=== PATIENT | female | born 1985 | race American Indian/Alaskan Native ===

== ENCOUNTER 2018-01-24 11:42 | Emergency (ER) | payer OTHER ==
[2018-01-24 11:53] VITALS: BP 115/75
--- NOTE | 2018-01-24 12:40 | Emergency Department Report ---
Chief Complaint: Urogenital-Female Stated Complaint: TOOTHACHE/UTI Time Seen by Provider: 01/24/18 12:31 - HPI History of Present Illness: 32-year-old female presents to the emergency department with 2 issues. First, the patient has been having some tooth pain to the right upper back molar that she says now makes her feel like she has pain with swallowing and seems to be affecting her ears. Secondly, the patient has some burning with urination and some lower abdominal discomfort. It is associated with some nausea without vomiting. Last menstrual cycle was January 04. She has not taken anything for her symptoms and presentation. - ROS Review of Systems: Positive for pharyngitis, toothache, abdominal discomfort, dysuria, nausea Negative for vomiting, fever, chest pain, shortness of breath - Exam Vital Signs: Vital Signs 01/24/18 11:47 Temperature 98.8 F Pulse Rate 80 Respiratory 18 Rate Blood Pressure 115/75 Physical Exam: No visible periapical tooth abscess. She has some mild tonsillar hypertrophy, mild erythema and what appears to be a single left tonsillar exudate. No drooling or trismus. Heart and lung sounds are normal to auscultation. MSE screening note: Focused history and physical exam performed. Due to findings the following was ordered: She will have a rapid strep test, urinalysis and urine test to start. ED Disposition for MSE Condition: Stable Referrals: PRIMARY CARE, [Primary Care Provider] - 3-5 Days
[2018-01-24] MEDS ORDERED: TYLENOL PO ONE (12:44)
[2018-01-24 13:10] LABS: Bilirubin,Urine NEG (Negative); Blood,Urine NEG (Negative); Color,Urine Yellow (Yellow); Mucus,Urine FEW /HPF; Protein,Urine <15 mg/dL mg/dL (Negative); Urobilinogen,Urine < 2.0 mg/dL (<2.0)
[2018-01-24 13:22] LABS: HCG Qualitative,Urine Negative (Negative)
--- NOTE | 2018-01-24 14:25 | Emergency Department Report ---
HPI - General Chief Complaint: Urogenital-Female Time Seen by Provider: 01/24/18 12:31 - HPI HPI: 32-year-old female presents to the emergency department with 2 issues. First, the patient has been having some tooth pain to the right upper back molar that she says now makes her feel like she has pain with swallowing and seems to be affecting her ears. Secondly, the patient has some burning with urination and some lower abdominal discomfort. It is associated with some nausea without vomiting. Last menstrual cycle was January 04. She has not taken anything for her symptoms and presentation. ED Past Medical Hx - Past Medical History Hx Pulmonary Embolism: Yes (2014) Hx Asthma: Yes - Surgical History Past Surgical History?: Yes Additional Surgical History: tubligation 2011 - Social History Smoking Status: Never Smoker Substance Use Type: None - Medications Home Medications: Home Medications Medication Instructions Recorded Confirmed Last Taken Type HYDROcodone/APAP 5-325 [[place] 1 each PO Q8H PRN #8 tablet 01/24/18 Unknown Rx 5/325] Sulfamethoxazole/Trimethoprim 1 each PO BID #14 tablet 01/24/18 Unknown Rx [Bactrim DS TAB] ED Review of Systems ROS: Stated complaint: TOOTHACHE/UTI Other details as noted in HPI Comment: All other systems reviewed and negative Constitutional: denies: chills, fever Eyes: denies: eye pain, eye discharge, vision change ENT: throat pain, dental pain Respiratory: denies: cough, shortness of breath, wheezing Cardiovascular: denies: chest pain, palpitations Gastrointestinal: denies: nausea, vomiting Genitourinary: dysuria. denies: discharge Musculoskeletal: denies: back pain, joint swelling, arthralgia Skin: denies: rash, lesions Neurological: denies: headache, weakness, paresthesias Physical Exam - Physical Exam Vital Signs: Vital Signs 01/24/18 11:47 Temperature 98.8 F Pulse Rate 80 Respiratory 18 Rate Blood Pressure 115/75 Physical Exam: GENERAL: The patient is well-developed well-nourished. HENT: Normocephalic. Atraumatic. Patient has moist mucous membranes. Oropharynx is clear. The patient has a broken tooth to the left upper molar. She has some tenderness to palpation around this area but no visible or palpable abscess. No drooling or trismus. EYES: Extraocular motions are intact. Pupils equal reactive to light bilaterally. NECK: Supple. Trachea is midline. CHEST/LUNGS: Clear to auscultation. There is no respiratory distress noted. HEART/CARDIOVASCULAR: Regular. There is no tachycardia. There is no murmur. SKIN: Skin is warm and dry. NEURO: The patient is awake, alert, and oriented. The patient is cooperative. The patient has no focal neurologic deficits. The patient has normal speech. MUSCULOSKELETAL: There is no tenderness or deformity. There is no limitation range of motion. There is no evidence of acute injury. ED Course Vital Signs 01/24/18 11:47 Temperature 98.8 F Pulse Rate 80 Respiratory 18 Rate Blood Pressure 115/75 ED Medical Decision Making - Medical Decision Making the patient has dental pain with a fractured tooth but no visible or palpable abscess. She complains of little bit of pharyngitis. Urinalysis does not show any UTI the patient is not . She'll be placed on antibiotics, was given a prescription for a very small amount of pain medication and has been given a referral for a dental clinic. She will return to the ER with any worsening of her symptoms or any acute distress. Vital signs stable and being afebrile. - Differential Diagnosis dental abscess, toothache, strep pharyngitis, UTI, Critical Care Time: No Critical care attestation.: If time is entered above; I have spent that time in minutes in the direct care of this critically ill patient, excluding procedure time. ED Disposition Clinical Impression: Toothache, Dysuria Pharyngitis Qualifiers: Pharyngitis/tonsillitis etiology: unspecified etiology Qualified Code(s): J02.9 - Acute pharyngitis, unspecified Disposition: DC- TO HOME OR SELFCARE Is pt being admited?: No Condition: Stable Instructions: Pharyngitis (ED), Toothache (ED) Additional Instructions: Please follow up with a primary care physician and a dentist. Return to the emergency Department with any worsening of your symptoms or any acute distress. You have been prescribed a medication that is sedating and therefore should not be taken prior to driving, working, and responsible for children and in no way should be mixed with alcohol of any quantity. Prescriptions: HYDROcodone/APAP 5-325 [[place] 5/325] 1 each PO Q8H PRN #8 tablet PRN Reason: Pain Sulfamethoxazole/Trimethoprim [Bactrim DS TAB] 1 each PO BID #14 tablet Referrals: PRIMARY CAREMD [Primary Care Provider] - 3-5 Days HEATHER ACEVEDO MD [Staff Physician] - 3-5 Days [facility] [Outside] - 3-5 Days Time of Disposition: 14:25
== END 2018-01-24 14:47 | disposition home or self-care (01) ==
LOC: ED 11:42
DX: J02.9 Acute pharyngitis, unspecified (principal); K08.89 Other specified disorders of teeth and supporting structures; R30.0 Dysuria; J45.909 Unspecified asthma, uncomplicated; Z86.711 Personal history of pulmonary embolism; Z98.51 Tubal ligation status
CPT/HCPCS: 81001; 81025; 87116; 87430; 99283

== ENCOUNTER 2018-11-16 19:19 | Emergency (ER) | payer OTHER ==
[2018-11-16] MEDS ORDERED: TORADOL IM ONE (19:31)
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
== END 2018-11-16 21:23 | disposition home or self-care (01) ==
LOC: ED 19:19
DX: M54.2 Cervicalgia (principal); M25.561 Pain in right knee; M25.531 Pain in right wrist; M79.18 Myalgia, other site; J45.909 Unspecified asthma, uncomplicated; Z98.51 Tubal ligation status; Z86.711 Personal history of pulmonary embolism; Z88.6 Allergy status to analgesic agent; V49.59XA Passenger injured in collision with other motor vehicles in traffic accident, initial encounter; Y93.89 Activity, other specified; Y92.410 Unspecified street and highway as the place of occurrence of the external cause; Y99.8 Other external cause status
CPT/HCPCS: 72040; 73130; 73562; 96372; 99283; J1885

== ENCOUNTER 2019-05-26 06:35 | Emergency (ER) | payer SELFPAY ==
[2019-05-26 06:43] VITALS: BP 136/105
[2019-05-26] MEDS ORDERED: BOOSTRIX IM ONE (07:49)
[2019-05-26] MEDS ORDERED: LET TOPICAL TP ONE (07:49)
[2019-05-26] MEDS ORDERED: NORCO 5/325 PO ONE (07:49)
--- NOTE | 2019-05-26 08:05 | Emergency Department Report ---
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 BLEEDING CONTROLLED. N/V INTACT ED Review of Systems ROS: Stated complaint: RIGHT HAND LACERATION Other details as noted in HPI Comment: All other systems reviewed and negative ED Past Medical Hx - Past Medical History Previous Medical History?: Yes Hx Pulmonary Embolism: Yes (2014) Hx Asthma: Yes Hx HIV: Yes - Surgical History Past Surgical History?: Yes Additional Surgical History: tubligation 2011 - Social History Smoking Status: Never Smoker Substance Use Type: None - Medications Home Medications: Home Medications Medication Instructions Recorded Confirmed Last Taken Type HYDROcodone/APAP 5-325 [[place] 1 each PO Q8H PRN #8 tablet 01/24/18 Unknown Rx 5/325] Sulfamethoxazole/Trimethoprim 1 each PO BID #14 tablet 01/24/18 Unknown Rx [Bactrim DS TAB] Ibuprofen [Motrin 800 MG tab] 800 mg PO Q8HR #30 tablet 03/10/18 Unknown Rx Ibuprofen [Motrin] 800 mg PO Q8HR PRN #20 tablet 11/16/18 Unknown Rx methOCARBAMOL [Robaxin TAB] 500 mg PO Q6H PRN #15 tablet 11/16/18 Unknown Rx Laceration Physical Exam - Exam General: Vital signs noted. No distress. Alert and acting appropriately. Laceration Location: Upper Extremity Laceration Exam: Yes Normal Distal CMS, No Foreign Body, No Exposed Tendon, Vessel, or Nerve, No Tendon Injury ED Course Vital Signs 05/26/19 06:39 Temperature 98.2 F Pulse Rate 76 Respiratory 18 Rate Blood Pressure 136/105 O2 Sat by Pulse 98 Oximetry ED Medical Decision Making - Medical Decision Making WOUND CLEANED TDAP GIVEN FULL ROM FULL EXTENSION AND FULL FLEXION OF DIGIT LAC OVER LATERAL SIDE OF MIP SKIN ADHESIVE AND STERI STRIPS TO APPROXIMATE THE AVULSION TYPE WOUND. GUAZE AND FINGER SPLINT FOR IMMOBILIZATION DC HOME WITH DC PLAN OF CARE Vital Signs 05/26/19 06:39 Temperature 98.2 F Pulse Rate 76 Respiratory 18 Rate Blood Pressure 136/105 O2 Sat by Pulse 98 Oximetry - Differential Diagnosis simple lac Critical care attestation.: If time is entered above; I have spent that time in minutes in the direct care of this critically ill patient, excluding procedure time. ED Disposition Clinical Impression: Laceration Disposition: DC-01 TO HOME OR SELFCARE Is pt being admited?: No Does the pt Need Aspirin: No Condition: Stable Instructions: Laceration (ED), Skin Adhesive Care (ED) Additional Instructions: MOTRIN OR TYLENOL FOR PAIN WOUND CARE INSTRUCTED Referrals: PRIMARY CARE, [Primary Care Provider] - 3-5 Days Forms: Work/School Release Form(ED) Time of Disposition: 08:33
[2019-05-26] MEDS ORDERED: NACL 0.9% IR ONE (08:30)
== END 2019-05-26 08:58 | disposition home or self-care (01) ==
LOC: ED 06:35
DX: S61.411A Laceration without foreign body of right hand, initial encounter (principal); J45.909 Unspecified asthma, uncomplicated; Z98.51 Tubal ligation status; Z98.890 Other specified postprocedural states; Z79.899 Other long term (current) drug therapy; Z88.8 Allergy status to other drugs, medicaments and biological substances; W26.8XXA Contact with other sharp object(s), not elsewhere classified, initial encounter; Y93.G1 Activity, food preparation and clean up; Y92.89 Other specified places as the place of occurrence of the external cause; Y99.8 Other external cause status
CPT/HCPCS: 90471; 90715; 99282; 99283

== ENCOUNTER 2019-05-31 14:30 | Emergency (ER) | payer SELFPAY ==
[2019-05-31 15:06] VITALS: BP 147/85
--- NOTE | 2019-05-31 15:07 | Emergency Department Report ---
ED Recheck HPI - General Stated Complaint: FINGER LAC/ Time Seen by Provider: 05/31/19 15:02 - History of Present Illness Initial Comments: This is a 33-year-old female nontoxic well in appearance with no signs of distress presents to the ED with complaint of right 5th finger lac that was sutured with some drainage. Patient had Dermabond placed without antibiotics 5 days ago. Denies any swelling. Patient denies any other symptoms. Denies any fever, chills, headache, nausea, vomiting, chest pain or SOB. Denies any other complaints. MD Complaint: wound re-check -: days(s) Initial Visit For: laceration Returns Today for: wound recheck Symptoms Since Prior Visit: no new symptoms Associated Symptoms: none. denies: fever, chills, chest pain, shortness of breath, rash, malaise, [place], abdominal pain - Related Data Previous Rx's Medication Instructions Recorded Last Taken Type HYDROcodone/APAP 5-325 [[place] 1 each PO Q8H PRN #8 tablet 01/24/18 Unknown Rx 5/325] Sulfamethoxazole/Trimethoprim 1 each PO BID #14 tablet 01/24/18 Unknown Rx [Bactrim DS TAB] Ibuprofen [Motrin 800 MG tab] 800 mg PO Q8HR #30 tablet 03/10/18 Unknown Rx Ibuprofen [Motrin] 800 mg PO Q8HR PRN #20 tablet 11/16/18 Unknown Rx methOCARBAMOL [Robaxin TAB] 500 mg PO Q6H PRN #15 tablet 11/16/18 Unknown Rx Sulfamethoxazole/Trimethoprim 1 each PO BID #14 tablet 05/31/19 Unknown Rx [Bactrim DS TAB] Allergies Allergy/AdvReac Type Severity Reaction Status Date / Time tramadol AdvReac Hives Verified 01/24/18 11:53 ED Review of Systems ROS: Stated complaint: FINGER LAC/ Other details as noted in HPI Constitutional: denies: chills, fever Eyes: denies: eye pain, eye discharge, vision change ENT: denies: ear pain, throat pain Respiratory: denies: cough, shortness of breath, wheezing Cardiovascular: denies: chest pain, palpitations Endocrine: no symptoms reported Gastrointestinal: denies: abdominal pain, nausea, diarrhea Genitourinary: denies: urgency, dysuria, discharge Musculoskeletal: denies: back pain, joint swelling, arthralgia Skin: denies: rash, lesions Neurological: denies: headache, weakness, paresthesias Psychiatric: denies: anxiety, depression Hematological/Lymphatic: denies: easy bleeding, easy bruising ED Past Medical Hx - Past Medical History Hx Pulmonary Embolism: Yes (2014) Hx Asthma: Yes Hx HIV: Yes - Surgical History Additional Surgical History: tubligation 2011 - Social History Smoking Status: Never Smoker Substance Use Type: None - Medications Home Medications: Home Medications Medication Instructions Recorded Confirmed Last Taken Type HYDROcodone/APAP 5-325 [[place] 1 each PO Q8H PRN #8 tablet 01/24/18 Unknown Rx 5/325] Sulfamethoxazole/Trimethoprim 1 each PO BID #14 tablet 01/24/18 Unknown Rx [Bactrim DS TAB] Ibuprofen [Motrin 800 MG tab] 800 mg PO Q8HR #30 tablet 03/10/18 Unknown Rx Ibuprofen [Motrin] 800 mg PO Q8HR PRN #20 tablet 11/16/18 Unknown Rx methOCARBAMOL [Robaxin TAB] 500 mg PO Q6H PRN #15 tablet 11/16/18 Unknown Rx Sulfamethoxazole/Trimethoprim 1 each PO BID #14 tablet 05/31/19 Unknown Rx [Bactrim DS TAB] ED Physical Exam - General General appearance: alert, in no apparent distress - Head Head exam: Present: atraumatic, normocephalic - Extremities Exam Extremities exam: Present: normal inspection, full ROM, tenderness, normal capillary refill, other (well healing lac with some serosanguineous drainge. no swelling or abscess noted). Absent: joint swelling ED Course - Reevaluation(s) Reevaluation #1: 05/31/19 15:06 Patient is speaking in full sentences with signs of distress noted. ED Recheck MDM - Medical Decision Making Was eduacated on wound care. Will discharge with Bactrim. Patient was instructed to Follow-up with a primary care doctor in 3-5 days or if symptoms worsen and continue return to emergency room as soon as possible. At time of discharge, the patient does not seem toxic or ill in appearance. No acute signs of distress noted. Patient agrees to discharge treatment plan of care. No further questions noted by the patient. Critical care attestation.: If time is entered above; I have spent that time in minutes in the direct care of this critically ill patient, excluding procedure time. ED Disposition Clinical Impression: Visit for wound check Disposition: DC-01 TO HOME OR SELFCARE Is pt being admited?: No Does the pt Need Aspirin: No Condition: Stable Instructions: Acute Wound Care (ED) Additional Instructions: Follow-up with a primary care doctor in 3-5 days or if symptoms worsen and continue return to the emergency department as soon as possible. Prescriptions: Sulfamethoxazole/Trimethoprim [Bactrim DS TAB] 1 each PO BID #14 tablet Referrals: PRIMARY CAREMD [Referring] - 3-5 Days ARELY AHUJA MD [Staff Physician] - 3-5 Days [facility] [Outside] - 3-5 Days [facility] [Outside] - 3-5 Days Forms: Work/School Release Form(ED)
== END 2019-05-31 15:36 | disposition home or self-care (01) ==
LOC: ED 14:30
DX: S61.217D Laceration without foreign body of left little finger without damage to nail, subsequent encounter (principal); Y92.89 Other specified places as the place of occurrence of the external cause

== ENCOUNTER 2019-10-11 13:37 | Emergency (ER) | payer SELFPAY ==
[2019-10-11 15:43] VITALS: BP 132/83
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
--- NOTE | 2019-10-11 16:09 | Emergency Department Report ---
ED Upper Extremity Inj HPI - General Chief Complaint: Extremity Injury, Upper Stated Complaint: RT THUMB/INJURY PAIN Time Seen by Provider: 10/11/19 15:41 Source: patient Mode of arrival: Ambulatory Limitations: No Limitations - History of Present Illness Initial Comments: This pleasant 34-year-old female presents the emergency department for evaluation of right hand and wrist pain. Patient states she was at work today when she threw a box and externally hit the base of her thumb on a metal pallet inocente. She reports she is having pain with movement of the thumb now. She denies any other injuries. Her pain is rated as an 8 out of 10 in severity. She reports past medical history of HIV on antiretroviral medication, asthma and pulmonary embolism in 2015. She is not currently on anticoagulation. She has allergy to shrimp and tramadol. - Related Data Previous Rx's Medication Instructions Recorded Last Taken Type HYDROcodone/APAP 5-325 [[place] 1 each PO Q8H PRN #8 tablet 01/24/18 Unknown Rx 5/325] Sulfamethoxazole/Trimethoprim 1 each PO BID #14 tablet 01/24/18 Unknown Rx [Bactrim DS TAB] methOCARBAMOL [Robaxin TAB] 500 mg PO Q6H PRN #15 tablet 11/16/18 Unknown Rx Sulfamethoxazole/Trimethoprim 1 each PO BID #14 tablet 05/31/19 Unknown Rx [Bactrim DS TAB] Naproxen [Naprosyn] 500 mg PO BID #20 tablet 10/11/19 Unknown Rx Allergies Allergy/AdvReac Type Severity Reaction Status Date / Time shrimp Allergy Swelling Verified 10/11/19 13:41 tramadol AdvReac Hives Verified 01/24/18 11:53 ED Review of Systems ROS: Stated complaint: RT THUMB/INJURY PAIN Other details as noted in HPI Comment: All other systems reviewed and negative Constitutional: denies: chills, fever Eyes: denies: eye pain, eye discharge, vision change ENT: denies: ear pain, throat pain Respiratory: denies: cough, shortness of breath, wheezing Cardiovascular: denies: chest pain, palpitations Endocrine: no symptoms reported Gastrointestinal: denies: abdominal pain, nausea, diarrhea Genitourinary: denies: urgency, dysuria, discharge Musculoskeletal: as per HPI, arthralgia. denies: back pain, joint swelling Skin: denies: rash, lesions Neurological: denies: headache, weakness, paresthesias Psychiatric: denies: anxiety, depression Hematological/Lymphatic: denies: easy bleeding, easy bruising ED Past Medical Hx - Past Medical History Previous Medical History?: Yes Hx Pulmonary Embolism: Yes (2014) Hx Asthma: Yes Hx HIV: Yes - Surgical History Past Surgical History?: Yes Additional Surgical History: tubligation 2011 - Social History Smoking Status: Never Smoker Substance Use Type: None - Medications Home Medications: Home Medications Medication Instructions Recorded Confirmed Last Taken Type HYDROcodone/APAP 5-325 [[place] 1 each PO Q8H PRN #8 tablet 01/24/18 Unknown Rx 5/325] Sulfamethoxazole/Trimethoprim 1 each PO BID #14 tablet 01/24/18 Unknown Rx [Bactrim DS TAB] methOCARBAMOL [Robaxin TAB] 500 mg PO Q6H PRN #15 tablet 11/16/18 Unknown Rx Sulfamethoxazole/Trimethoprim 1 each PO BID #14 tablet 05/31/19 Unknown Rx [Bactrim DS TAB] Naproxen [Naprosyn] 500 mg PO BID #20 tablet 10/11/19 Unknown Rx ED Physical Exam - General Limitations: No Limitations General appearance: alert, in no apparent distress - Head Head exam: Present: atraumatic, normocephalic - Eye Eye exam: Present: normal appearance, PERRL, EOMI Pupils: Present: normal accommodation - ENT ENT exam: Present: normal exam, normal orophraynx, mucous membranes moist - Neck Neck exam: Present: normal inspection, full ROM. Absent: tenderness, meningismus - Respiratory Respiratory exam: Present: normal lung sounds bilaterally. Absent: respiratory distress, wheezes, rales, rhonchi, stridor - Cardiovascular Cardiovascular Exam: Present: regular rate, normal rhythm, normal heart sounds. Absent: systolic murmur, diastolic murmur, rubs, gallop - GI/Abdominal GI/Abdominal exam: Present: soft, normal bowel sounds. Absent: distended, tend erness, guarding, rebound, rigid - Extremities Exam Extremities exam: Present: normal inspection, full ROM, tenderness (TTP to anatomic snuffbox. no deformity. ), normal capillary refill - Back Exam Back exam: Present: normal inspection, full ROM. Absent: tenderness, CVA tenderness (R), CVA tenderness (L) - Neurological Exam Neurological exam: Present: alert, oriented X3 - Psychiatric Psychiatric exam: Present: normal affect, normal mood - Skin Skin exam: Present: warm, dry, intact, normal color. Absent: rash ED Course Vital Signs 10/11/19 15:41 Temperature 98.3 F Pulse Rate 84 Respiratory 18 Rate Blood Pressure 132/83 O2 Sat by Pulse 100 Oximetry ED Medical Decision Making - Radiology Data Radiology results: report reviewed, image reviewed [facility] [address] [place] [address] XRay Report Signed Patient: JEFF MATTHEW MR#: [id number] : 1985 Acct:[id number] Age/Sex: 34 / F ADM Date: 10/11/19 Loc: ED Attending Dr: Ordering Physician: CYNTHIA HYDE Date of Service: 10/11/19 Procedure(s): XR hand 3+V RT Accession Number(s): [id number] cc: CYNTHIA HYDE Fluoro Time In Minutes: RIGHT HAND 3 VIEWS INDICATION / CLINICAL INFORMATION: Right thumb injury. History of blunt trauma to thumb. COMPARISON: None available. FINDINGS: BONES and JOINT(S): No acute fracture or subluxation. No significant arthritis. SOFT TISSUES: No significant abnormality. ADDITIONAL FINDINGS: None. IMPRESSION: No acute abnormality of the right hand. Signer Name: Theodore Khoury MD Signed: 10/11/2019 4:00 PM Workstation Name: [id number] Transcribed By: OLVIN Dictated By: Theodore Khoury MD Electronically Authenticated By: Theodore Khoury MD Signed Date/Time: 10/11/19 1600 - Medical Decision Making X-rays were negative however due to the anatomical snuffbox the patient was placed in a thumb spica splint. The patient was educated that she will need a repeat x-ray in 1-2 weeks to definitively rule out a scaphoid injury. This splint was placed by ER and it was appropriately applied and the distal neurovascular exam post application was unremarkable. Patient will be given orthopedic follow-up and should return precautions for change or worsening symptoms. Patient verbalizes understanding of the diagnosis, treatment plan and follow-up instructions all of her questions were answered. - Differential Diagnosis fracture, sprain, strain, contusion Critical care attestation.: If time is entered above; I have spent that time in minutes in the direct care of this critically ill patient, excluding procedure time. ED Disposition Clinical Impression: Contusion of wrist, right Qualifiers: Encounter type: initial encounter Qualified Code(s): S60.211A - Contusion of right wrist, initial encounter Disposition: DC- TO HOME OR SELFCARE Is pt being admited?: No Does the pt Need Aspirin: No Condition: Stable Instructions: Contusion in Adults (ED) Prescriptions: Naproxen [Naprosyn] 500 mg PO BID #20 tablet Referrals: JUNIE PALMA MD [Staff Physician] - 3-5 Days Forms: Work/School Release Form(ED) Time of Disposition: 16:22
== END 2019-10-11 16:39 | disposition home or self-care (01) ==
LOC: ED 13:37
DX: S60.211A Contusion of right wrist, initial encounter (principal); Z86.711 Personal history of pulmonary embolism; Z98.51 Tubal ligation status; Z79.899 Other long term (current) drug therapy; Z91.013 Allergy to seafood; Z88.8 Allergy status to other drugs, medicaments and biological substances; W22.8XXA Striking against or struck by other objects, initial encounter; Y93.89 Activity, other specified; Y92.89 Other specified places as the place of occurrence of the external cause; Y99.8 Other external cause status

== ENCOUNTER 2019-10-20 08:14 | Emergency (ER) | payer SELFPAY ==
[2019-10-20 08:25] VITALS: BP 142/84
[2019-10-20] MEDS ORDERED: KETOROLAC 30 MG/1 ML INJ IM ONE (09:58)
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
== END 2019-10-20 10:51 | disposition home or self-care (01) ==
LOC: ED 08:14
DX: S16.1XXA Strain of muscle, fascia and tendon at neck level, initial encounter (principal); J45.909 Unspecified asthma, uncomplicated; Z21 Asymptomatic human immunodeficiency virus [HIV] infection status; Z91.013 Allergy to seafood; Z79.899 Other long term (current) drug therapy; Z88.8 Allergy status to other drugs, medicaments and biological substances; Z98.51 Tubal ligation status; X58.XXXA Exposure to other specified factors, initial encounter; Y93.89 Activity, other specified; Y92.89 Other specified places as the place of occurrence of the external cause; Y99.8 Other external cause status
CPT/HCPCS: 96372; 99282; J1885

== ENCOUNTER 2019-10-21 01:17 | Observation (INO) | payer OTHER ==
--- NOTE | 2019-10-21 02:05 | XRay Report ---
CHEST 1 VIEW INDICATION / CLINICAL INFORMATION: Chest Pain. COMPARISON: None available. FINDINGS: SUPPORT DEVICES: None. HEART / MEDIASTINUM: No significant abnormality. LUNGS / PLEURA: No significant pulmonary or pleural abnormality.. No pneumothorax. ADDITIONAL FINDINGS: No significant additional findings. IMPRESSION: 1. No acute findings. Signer Name: Mohit Will MD Signed: 10/21/2019 2:01 AM Workstation Name: [id number]
[2019-10-21 02:10] LABS: Basophils % (Auto) 0.4 % (0.0-1.8); Eosinophils # (Auto) 0.2 K/mm3 (0.0-0.4); Eosinophils % (Auto) 2.1 % (0.0-4.3); Hematocrit 40.4 % (30.3-42.9); Hemoglobin 13.5 gm/dl (10.1-14.3); Lymphocytes # (Auto) 3.3 K/mm3 (1.2-5.4); Lymphocytes % (Auto) 41.3 % (13.4-35.0); Mean Corpuscular HGB Conc 34 % (30-34); Mean Corpuscular Volume 92 fl (79-97); Monocytes # (Auto) 0.7 K/mm3 (0.0-0.8); Monocytes % (Auto) 8.5 % (0.0-7.3); Platelet Count 251 K/mm3 (140-440); Red Blood Count 4.39 M/mm3 (3.65-5.03); Red Cell Distribution Width 14.3 % (13.2-15.2)
[2019-10-21 02:31] LABS: BUN/Creatinine Ratio 19; Blood Urea Nitrogen 17 mg/dL (7-17); Calcium 9.2 mg/dL (8.4-10.2); Hemolysis Index 12
[2019-10-21 03:14] LABS: Bacteria,Urine 1+ /HPF (Negative); Bilirubin,Urine NEG (Negative); Blood,Urine NEG (Negative); Color,Urine Amber (Yellow); Mucus,Urine FEW /HPF
[2019-10-21] MEDS ORDERED: IPRATROPIUM/ALBUTEROL SULFATE 3 ML AMPUL.NEB IH ONE (03:15)
[2019-10-21] MEDS ORDERED: methylPREDNISolone Sod Succinate 125 MG/2 ML INJ IV ONE (03:15)
[2019-10-21] MEDS ORDERED: NITROFURANTOIN MONOHYD/M-CRYST 100 MG CAP PO ONE (03:29)
--- NOTE | 2019-10-21 04:49 | Cat Scan Report ---
CT cervical spine wo con INDICATION / CLINICAL INFORMATION: 34 years Female; Pt complains of neck pain and left arm numbness.. TECHNIQUE: Axial CT images of the cervical spine were obtained. Sagittal and coronal reformatted images were pr oduced. All CT scans at this location are performed using CT dose reduction for ALARA by means of aut omated exposure control. COMPARISON: None available. FINDINGS: POST-SURGICAL CHANGES: None. ALIGNMENT: Straightening of the cervical spine seen, which may be related to patient positioning. VERTEBRAE: No signs of fracture. Vertebral bodies are grossly normal in height throughout. No signif icant facet joint disease or osseous foraminal narrowing appreciated. INTRAVERTEBRAL DISCS:Disc spaces are fairly well-maintained throughout without significant canal sten osis. PARASPINAL SOFT TISSUES: No significant abnormality. ADDITIONAL FINDINGS: None. IMPRESSION: 1. No single, dominant cause for patient's symptomatology appreciated. These types of symptoms are mu ch better evaluated with MRI or myelography. Signer Name: Garett Fleming MD, III Signed: 10/21/2019 4:44 AM Workstation Name: [id number]
--- NOTE | 2019-10-21 04:50 | Cat Scan Report ---
CT head/brain wo con INDICATION / CLINICAL INFORMATION: 34 years Female; Pt complains of neck pain and left arm numbness.. TECHNIQUE: Routine CT head without contrast. All CT scans at this location are performed using CT dos e reduction for ALARA by means of automated exposure control. COMPARISON: None. FINDINGS: BRAIN / INTRACRANIAL CONTENTS: No acute hemorrhage, mass effect, midline shift, hydrocephalus, or acu te, large territorial infarct. No chronic infarct or atrophy appreciated. No significant white matter abnormality. CRANIOCERVICAL JUNCTION: No significant abnormality. ORBITS: No significant abnormality of visualized orbits. SINUSES / MASTOIDS: Minimal mucosal thickening seen in the ethmoids. ADDITIONAL FINDINGS: Prominent soft tissue is seen in the roof the nasopharynx, presumably related to reactive adenoidal tissue. Please clinically correlate. IMPRESSION: 1. No focal mass, hemorrhage, hydrocephalus, or acute, large territorial infarct. Signer Name: Garett Fleming MD, III Signed: 10/21/2019 4:46 AM Workstation Name: [email or web address]
[2019-10-21] MEDS ORDERED: MORPHINE 4 MG/1 ML INJ IV ONE (04:55)
[2019-10-21] MEDS ORDERED: KETOROLAC 30 MG/1 ML INJ IV ONE (05:26)
[2019-10-21] MEDS ORDERED: ONDANSETRON 4 MG/2 ML INJ ONE (05:36)
--- NOTE | 2019-10-21 06:22 | Emergency Department Report ---
HPI - General Chief Complaint: Neuro Symptoms/Deficit Time Seen by Provider: 10/21/19 02:46 - HPI HPI: 34-year-old -[place] female presents to the emergency department with 2 complaints. First, the patient has been having a 24-hour history of severe pain in the left upper shoulder, left side of the neck and the left upper back around the shoulder blade. The patient originally had some mild numbness and paresthesias but now says that she has complete numbness of her left upper extremity. She is still able to move the arm with a full range of motion. She denies any fall, trauma, injury, or any obvious inciting event. The patient was seen here for the symptoms yesterday, was diagnosed with a cervical strain, and was discharged home with Robaxin. The patient says that she was taking that, along with ibuprofen, but the symptoms have worsened. Secondly, the patient complains of some shortness of breath in which she feels like it is difficult to take full breaths. There has been some mild wheezing and the patient thinks that this could be an exacerbation of her asthma. The patient also has a history of HIV and previous pulmonary embolism. She is not currently on any to coagulation. No recent travel or sick contacts at home. ED Past Medical Hx - Past Medical History Previous Medical History?: Yes Hx Pulmonary Embolism: Yes (2014) Hx Asthma: Yes Hx HIV: Yes - Surgical History Past Surgical History?: Yes Additional Surgical History: tubligation 2011 - Social History Smoking Status: Never Smoker Substance Use Type: None - Medications Home Medications: Home Medications Medication Instructions Recorded Confirmed Last Taken Type methOCARBAMOL [Robaxin TAB] 500 mg PO Q6H PRN #15 tablet 11/16/18 10/21/19 Unknown Rx Sulfamethoxazole/Trimethoprim 1 each PO BID #14 tablet 05/31/19 10/21/19 10/21/19 03:00 Rx [Bactrim DS TAB] Emtricita/Rilpivirine/Tenof Df 1 each PO DAILY 10/21/19 10/21/19 10/19/19 17:00 History [Complera Tablet] ED Review of Systems ROS: Stated complaint: CHEST PAIN,DIFF URINING,PAIN ON LEFT SIDE W/NUMBNE Other details as noted in HPI Comment: All other systems reviewed and negative Constitutional: denies: chills, fever Eyes: denies: eye pain, vision change ENT: denies: ear pain, throat pain Respiratory: shortness of breath, wheezing Cardiovascular: denies: chest pain, edema Gastrointestinal: denies: abdominal pain, vomiting Musculoskeletal: back pain, arthralgia, myalgia Skin: denies: rash, lesions Neurological: numbness, paresthesias. denies: weakness Physical Exam - Physical Exam Vital Signs: Vital Signs 10/21/19 10/21/19 01:22 06:14 Temperature 98.1 F Pulse Rate 96 H Respiratory 12 18 Rate Blood Pressure 114/84 O2 Sat by Pulse 97 Oximetry Physical Exam: GENERAL: The patient is well-developed well-nourished. HEENT: Normocephalic. Atraumatic. Patient has moist mucous membranes. EYES: Extraocular motions are intact. Pupils equal and reactive to light bilaterally. NECK: Supple. Trachea is midline. CHEST/LUNGS: Clear to auscultation. There is no respiratory distress noted. HEART/CARDIOVASCULAR: Regular. There is no tachycardia. There is no murmur. ABDOMEN: Abdomen is soft, nontender. Patient has normal bowel sounds. There is no abdominal distention. SKIN:Skin is warm and dry. . NEURO: The patient is awake, alert, and oriented. The patient is cooperative. There are no motor deficits. However there is subjective numbness to the entire left upper extremity, even when poked with sharp objects. Normal speech. Cranial nerves II through XII grossly intact. MUSCULOSKELETAL: There is no tenderness or deformity. There is no limitation range of motion. There is no evidence of acute injury. Radial pulse +2 over 4 and capillary refill less than 2 seconds to the affected left upper extremity. ED Course Vital Signs 10/21/19 10/21/19 01:22 06:14 Temperature 98.1 F Pulse Rate 96 H Respiratory 12 18 Rate Blood Pressure 114/84 O2 Sat by Pulse 97 Oximetry - Consultations Consultation #1: 10/21/19 06:23 I spoke with the telemedicine neurologist, Dr. Manzanares, regarding the patient's left arm numbness. He recommends admission to the hospital for an MRI. ED Medical Decision Making - Lab Data Result diagrams: 10/21/19 01:52 10/21/19 01:52 - EKG Data -: EKG Interpreted by De EKG shows normal: sinus rhythm, axis, intervals, QRS complexes, ST-T waves Rate: normal - EKG Data When compared to previous EKG there are: previous EKG unavailable Interpretation: normal EKG - Radiology Data Radiology results: report reviewed, image reviewed interpreted by me: Chest x-ray does not show any pleural effusions, pneumonia, pneumothorax, focal consolidation, or any other acute process. CT head/brain wo con INDICATION / CLINICAL INFORMATION: 34 years Female; Pt complains of neck pain and left arm numbness.. TECHNIQUE: Routine CT head without contrast. All CT scans at this location are performed using CT dose reduction for ALARA by means of automated exposure control. COMPARISON: None. FINDINGS: BRAIN / INTRACRANIAL CONTENTS: No acute hemorrhage, mass effect, midline shift, hydrocephalus, or acute, large territorial infarct. No chronic infarct or atrophy appreciated. No significant white matter abnormality. CRANIOCERVICAL JUNCTION: No significant abnormality. ORBITS: No significant abnormality of visualized orbits. SINUSES / MASTOIDS: Minimal mucosal thickening seen in the ethmoids. ADDITIONAL FINDINGS: Prominent soft tissue is seen in the roof the nasopharynx, presumably related to reactive adenoidal tissue. Please clinically correlate. IMPRESSION: 1. No focal mass, hemorrhage, hydrocephalus, or acute, large territorial infarct. CT cervical spine wo con INDICATION / CLINICAL INFORMATION: 34 years Female; Pt complains of neck pain and left arm numbness.. TECHNIQUE: Axial CT images of the cervical spine were obtained. Sagittal and coronal reformatted images were produced. All CT scans at this location are performed using CT dose reduction for ALARA by means of automated exposure control. COMPARISON: None available. FINDINGS: POST-SURGICAL CHANGES: None. ALIGNMENT: Straightening of the cervical spine seen, which may be related to patient positioning. VERTEBRAE: No signs of fracture. Vertebral bodies are grossly normal in height throughout. No significant facet joint disease or osseous foraminal narrowing appreciated. INTRAVERTEBRAL DISCS:Disc spaces are fairly well-maintained throughout without significant canal stenosis. PARASPINAL SOFT TISSUES: No significant abnormality. ADDITIONAL FINDINGS: None. IMPRESSION: 1. No single, dominant cause for patient's symptomatology appreciated. These types of symptoms are much better evaluated with MRI or myelography. - Medical Decision Making This patient presents with 2 complaints. Regarding her shortness of breath, she had some mild wheezing throughout the chest on examination but no signs of any respiratory distress. She was given a dose of Solu-Medrol and a breathing treatment and this appeared to improve her bronchospasm. Chest x-ray did not show any pneumonia, pleural effusions, pneumothorax, or any other acute process. The patient's other complaint is left upper extremity numbness with pain to the left shoulder, upper back and neck. It is a strange presentation as the patient has complete numbness to the left arm but has preserved motor function. She does not have any other obvious deficits and with the numbness would be a NIH stroke scale of 1. However the symptoms have been going on for greater than [address] scan of the head was done that does not show any bleed, shift, mass, ischemia, or any other acute process. CT of cervical spine does not show any fracture, subluxation or any acute process. Telemedicine neurology was contacted. They did not do a consult but recommended the patient be admitted for an MRI. Patient's labs were mostly unremarkable except for a slightly elevated and equivocal d-dimer and the patient has a mild urinary tract infection. She has been placed on antibiotics. Since the patient had 2 CT scans done, we will obtain a VQ scan to rule out a pulmonary embolism on this patient. Once the results are done, this patient will be admitted to the hospitalist service. - Differential Diagnosis CVA, Nerve impingement, Cervical strain, Asthma, PE Critical Care Time: No Critical care attestation.: If time is entered above; I have spent that time in minutes in the direct care of this critically ill patient, excluding procedure time. ED Disposition Clinical Impression: Shortness of breath, Asthma exacerbation, Left upper extremity numbness Disposition: -09 OP ADMIT IP TO THIS HOSP Is pt being admited?: No Condition: Stable Time of Disposition: 06:24
--- NOTE | 2019-10-21 07:08 | Cat Scan Report ---
CTA of the chest with 3D Reconstruction Indication: ,Shortness of breath, elevated d-dimer Technique: TECHNIQUE: Axial CT images were obtained through the chest after injection of 100 cc of Omnipaque 350 IV contrast. 3 plane MIP reconstructions were produced. All CT scans at this location are performed using CT dose reduction for ALARA by means of automated exposure control. COMPARISON: None Automatic exposure control was utilized in an attempt to reduce radiation dose. Findings: Pulmonary arteries: The main pulmonary artery and right and left pulmonary artery branches fill satis factorily with contrast. No pulmonary embolus is seen. Lungs: The lungs are clear. Mediastinum: Heart size is normal. No adenopathy is seen. Aorta: There is a right-sided aortic arch. This is an anatomic variant. This appears to be a type II right-sided aortic arch. Impression: No pulmonary embolus is seen There is a right-sided aortic arch. Signer Name: Mohit Will MD Signed: 10/21/2019 7:03 AM Workstation Name: [id number]
--- NOTE | 2019-10-21 09:12 | History and Physical Report ---
History of Present Illness Date of examination: 10/21/19 Date of admission: 10/21/19 07:54 Chief complaint: Left arm weakness numbness and pain History of present illness: [id number] obese -[place] female patient with significant past medical history of HIV bronchial asthma presented to the emergency room drip left upper extremity weakness numbness and pain the last 24 hours. Patient denies any history of trauma, patient also complains that she is not able to lift the arm and has difficulty holding things with the left hand Also complains of left shoulder pain Patient was seen in the ED and was advised muscle relaxers yesterday due to possible cervical strain The patient also complains of mild shortness of breath past history of bronchial asthma HIV on medications follow prescription health Department Patient denies any headache or dizziness No history of seizures Past History Past Medical History: pulmonary embolism ( history of), other (bronchial asthma) Past Surgical History: Other (tubal ligation) Social history: lives with family. denies: smoking, alcohol abuse, prescription drug abuse Family history: diabetes, hypertension Medications and Allergies Allergies Allergy/AdvReac Type Severity Reaction Status Date / Time shrimp Allergy Swelling Verified 10/11/19 13:41 tramadol AdvReac Hives Verified 01/24/18 11:53 Home Medications Medication Instructions Recorded Confirmed Last Taken Type methOCARBAMOL [Robaxin TAB] 500 mg PO Q6H PRN #15 tablet 11/16/18 10/21/19 Unknown Rx Sulfamethoxazole/Trimethoprim 1 each PO BID #14 tablet 05/31/19 10/21/19 10/21/19 03:00 Rx [Bactrim DS TAB] Emtricita/Rilpivirine/Tenof Df 1 each PO DAILY 10/21/19 10/21/19 10/19/19 17:00 History [Complera Tablet] Review of Systems Constitutional: no weight loss, no weight gain, no fever, no chills Ears, nose, mouth and throat: no nasal congestion, no nasal discharge Cardiovascular: no chest pain, no syncope, no lightheadedness Respiratory: no cough, no shortness of breath Gastrointestinal: no abdominal pain, no nausea, no vomiting Genitourinary Female: no flank pain, no dysuria Integumentary: no rash, no lesions Neurological: numbness, other (right upper extremity weakness) Psychiatric: no anxiety, no depression Endocrine: no cold intolerance, no heat intolerance Hematologic/Lymphatic: no easy bruising, no easy bleeding Allergic/Immunologic: no urticaria, no allergic rhinitis Exam - Constitutional Vitals: Temp Pulse Resp BP Pulse Ox 98.1 F 78 13 128/74 94 10/21/19 01:22 10/21/19 08:30 10/21/19 08:30 10/21/19 08:30 10/21/19 08:30 General appearance: Present: no acute distress, well-nourished - EENT Eyes: Present: PERRL, EOM intact - Neck Neck: Present: supple, normal ROM - Respiratory Respiratory effort: normal Respiratory: bilateral: diminished, negative: rales, rhonchi, wheezing - Cardiovascular Rhythm: regular Heart Sounds: Present: S1 & S2 - Extremities Extremities: no ischemia, No edema - Abdominal General gastrointestinal: Present: soft, non-tender, non-distended, normal bowel sounds - Integumentary Integumentary: Present: clear, warm - Musculoskeletal Musculoskeletal: right sided weakness - Psychiatric Psychiatric: appropriate mood/affect, cooperative - Neurologic Neurologic: other (RUEmotor power 2/ 5, RLE 4/ 5, sensation decreased right upper extremity) Results - Labs CBC & Chem 7: 10/21/19 01:52 10/21/19 01:52 Labs: Abnormal lab results 10/21/19 10/21/19 10/21/19 Range/Units 01:52 02:50 04:53 Lymph % (Auto) 41.3 H (13.4-35.0) % [place] % (Auto) 8.5 H (0.0-7.3) % D-Dimer 341.23 H (0-234) ng/mlDDU Urine WBC (Auto) 22.0 H (0.0-6.0) /HPF U Epithel Cells (Auto) 16.0 H (0-13.0) /HPF Assessment and Plan --Right upper extremity weakness; possible radiculopathy Plan medications , physical therapy occupational therapy Neurology consult --Right upper extremity weakness with numerous symptoms ; Possible CVA . CT head negative, not a candidate for TPA Aspirin and statin, lipid panel, PT will take Neurology consult --History of HIV; continue home medications Supportive care --Remote history of PE; stable --Obesity; BMI 39.6 Preventative counseling done Spent 17 minutes Advised diet modification and exercise as tolerated and weight reduction --DVT prophylaxis; Lovenox Monitor closely and adjust management as needed Follow note her workup, neurology evaluation and recommendations Plan of care is reviewed with the patient and her nurse I also discussed the case with neurologist
[2019-10-21] MEDS: ALBUTEROL 2.5 MG/3 ML NEBU IH PRN (12:32)
[2019-10-21] MEDS: MORPHINE 2 MG/1 ML INJ IV PRN (14:38)
[2019-10-21] MEDS: ASPIRIN 325 MG TAB PO SCH (14:38)
[2019-10-21] MEDS: SULFAMETHOXAZOLE/TRIMETHOPRIM 800/160MG DS TAB PO SCH ×2 (14:39→21:22)
--- NOTE | 2019-10-21 18:57 | Consultation ---
History of Present Illness Consult date: 10/21/19 Reason for Consult: left arm weakness and numbness Chief complaint: Left arm numbness and weakness History of present illness: Patient is a 34-year-old woman with a history of PE, asthma, HIV. She presents with symptoms that began as pain in the left shoulder yesterday morning, that also involved the left neck and left upper back. Later that day, patient also began to experience numbness and paresthesias in the left upper extremity. She then later developed weakness in the left hand. Patient was brought to [facility] for further evaluation. Past History Past Medical History: pulmonary embolism ( history of), other (bronchial asthma, HIV) Past Surgical History: Other (tubal ligation) Social history: lives with family. denies: smoking, alcohol abuse, prescription drug abuse Family history: diabetes, hypertension Medications and Allergies Allergies Allergy/AdvReac Type Severity Reaction Status Date / Time shrimp Allergy Swelling Verified 10/11/19 13:41 tramadol AdvReac Hives Verified 01/24/18 11:53 Home Medications Medication Instructions Recorded Confirmed Last Taken Type methOCARBAMOL [Robaxin TAB] 500 mg PO Q6H PRN #15 tablet 11/16/18 10/21/19 Unknown Rx Sulfamethoxazole/Trimethoprim 1 each PO BID #14 tablet 05/31/19 10/21/19 10/21/19 03:00 Rx [Bactrim DS TAB] Emtricita/Rilpivirine/Tenof Df 1 each PO DAILY 10/21/19 10/21/19 10/19/19 17:00 History [Complera Tablet] Active Meds: Active Medications Albuterol (Proventil) 2.5 mg IH Q6HRT PRN PRN Reason: Shortness Of Breath Last Admin: 10/21/19 12:32 Dose: 2.5 mg Documented by: Aspirin (Aspirin) 325 mg PO QDAY NAN Last Admin: 10/21/19 14:38 Dose: 325 mg Documented by: Atorvastatin Calcium (Lipitor) 20 mg PO QHS NAN Methocarbamol (Robaxin) 500 mg PO Q6H PRN PRN Reason: Muscle Spasm Miscellaneous Medication (Emtricita/Rilpivirine/Tenof Df [Complera Tablet]) 1 each PO DAILY NAN Morphine Sulfate (Morphine) 2 mg IV Q6H PRN PRN Reason: Pain, Moderate (4-6) Last Admin: 10/21/19 14:38 Dose: 2 mg Documented by: Trimethoprim/Sulfamethoxazole (Bactrim Ds) 1 each PO BID NAN Last Admin: 10/21/19 14:39 Dose: Not Given Documented by: Review of Systems All systems: negative Musculoskeletal: other (pain left shoulder and neck) Neurological: weakness, numbness Physical Examination - Vital Signs Vital Signs: Vital Signs Temp Pulse Resp BP Pulse Ox 98.1 F 96 H 12 114/84 97 10/21/19 01:22 10/21/19 01:22 10/21/19 01:22 10/21/19 01:22 10/21/19 01:22 - Physical Exam Narrative exam: Patient is alert, awake, oriented x4, follows complex commands. PERRL, EOMI, VFF, no facial weakness noted, tongue midline, decreased on Lt. to LT. No dysarthria or aphasia noted. 5/5 in RUE/RLE/LLE, LUE proximal 5/5 distal 3/5. Decreased on Lt. to LT. B/l intact to FTN and HTS. 2+ reflexes throughout. - Constitutional General appearance: comfortable - EENT EENT: Present: ATNC, PERRL, mucous membranes moist, hearing intact, vision intact - Respiratory Respiratory: Present: lungs clear, normal breath sounds - Cardiovascular Cardiovascular: Present: regular rate, normal S1, normal S2 Extremities: Present: no clubbing, cyanosis, no inflammation - Gastrointestinal Gastrointestinal: Present: normoactive bowel sounds, soft, non-tender - Integumentary Integumentary: Present: normal - Musculoskeletal Musculoskeletal: Present: pain in joint (left shoulder), no fluid collection - Psychiatric Psychiatric: Present: mood/affect appropriate Results - Laboratory Findings CBC and BMP: 10/21/19 01:52 10/21/19 01:52 Abnormal Lab Findings: Abnormal Labs 10/21/19 10/21/19 10/21/19 01:52 02:50 04:53 Lymph % (Auto) 41.3 H [place] % (Auto) 8.5 H D-Dimer 341.23 H Urine WBC (Auto) 22.0 H U Epithel Cells (Auto) 16.0 H Assessment and Plan Patient is a 34-year-old woman with a history of PE, asthma, HIV, who presents with left upper extremity numbness and weakness. According the patient's clinical findings, it is possible that the patient may have a stroke or myelopathy. Alternatively, there is a possibility that the patient may have conversion disorder. Plan: 1. LUE weakness: - Check MRI brain with and without contrast - Check MRI cervical spine with and without contrast If imaging of brain and cervical spine are unremarkable, will refer patient to outpatient neurology for EMG/NCS. - Will continue to monitor neurologic status 2. UTI: - Patient also found to have a UTI, treated per primary. Thank you for allowing me to take part in the care of this patient. Raul Shaver MD Neurology
--- NOTE | 2019-10-21 19:42 | Magnetic Resonance Report ---
MR cervical spine wo/w con INDICATION / CLINICAL INFORMATION: 34 years Female; Lt. arm weakness/numbness. TECHNIQUE: Multisequence, multiplanar images of the cervical spine were obtained. COMPARISON: None available. FINDINGS: CRANIOCERVICAL JUNCTION:No significant abnormality. ALIGNMENT: No significant abnormality. VERTEBRAE:Grossly normal marrow signal and vertebral body height for age. VISUALIZED SPINAL CORD: No significant abnormality. INTERVERTEBRAL DISCS: Grossly normal in height and signal intensity. [id number] ANALYSIS: C2-3: No significant abnormality. C3-4: Perhaps minimal facet hypertrophy on the left. C4-5: Small left paracentral disc protrusion. C5-6: Minimal disc bulge. No significant sequela. C6-7: Minimal uncinate hypertrophy. C7-T1: No significant abnormality. PARASPINAL SOFT TISSUES: No significant abnormality. ADDITIONAL FINDINGS: None. IMPRESSION: 1. Degenerative changes of the cervical spine as described above. No single, dominant cause for mark ent's symptomatology appreciated. Signer Name: Garett Fleming MD, III Signed: 10/21/2019 7:38 PM Workstation Name: [id number]
--- NOTE | 2019-10-21 19:45 | Magnetic Resonance Report ---
MR brain wo/w con INDICATION / CLINICAL INFORMATION: 34 years Female; Lt. arm weakness/numbness. TECHNIQUE: Multiplanar, multisequence MR images of the brain were obtained. COMPARISON: CT - 10/21/2019 FINDINGS: BRAIN / INTRACRANIAL CONTENTS: No acute hemorrhage, mass effect, midline shift, hydrocephalus, or acu te, large territorial infarct. No chronic infarct or atrophy. No significant white matter abnormality . I see no signs of abnormal enhancement following contrast demonstration. CRANIOCERVICAL JUNCTION: No significant abnormality. VASCULAR FLOW-VOIDS: No significant abnormality. ORBITS: No significant abnormality of visualized orbits. SINUSES / MASTOIDS: No significant abnormality the visualized paranasal sinuses or mastoid air cells. ADDITIONAL FINDINGS: None. IMPRESSION: 1. No focal mass, hemorrhage, hydrocephalus, or acute ischemia. Signer Name: Garett Fleming MD, III Signed: 10/21/2019 7:40 PM Workstation Name: [id number]
[2019-10-22] MEDS: MORPHINE 2 MG/1 ML INJ IV PRN ×3 (05:14→18:08)
[2019-10-22 07:58] LABS: Chol/HDL Ratio 2.4 %
[2019-10-22] MEDS: SULFAMETHOXAZOLE/TRIMETHOPRIM 800/160MG DS TAB PO SCH ×2 (09:29→21:49)
[2019-10-22] MEDS: ASPIRIN 325 MG TAB PO SCH (09:29)
[2019-10-22] MEDS ORDERED: RILPIVIRINE PO SCH (10:00)
[2019-10-22] MEDS ORDERED: EMTRICITA PO SCH (10:00)
[2019-10-22] MEDS ORDERED: TENOF DF PO SCH (10:00)
--- NOTE | 2019-10-22 11:29 | Progress Note ---
Assessment and Plan Assessment and plan: --Left upper extremity weakness; possible radiculopathy Plan medications , physical therapy occupational therapy Neurology evaluation ,recommendations noted and appreciated --Left upper extremity weakness with numerous symptoms ; Possible CVA . CT head negative, not a candidate for TPA Aspirin and statin, lipid panel, PT will take Neurology following CT head without contrast; Cervical spine CT; CTA chest; Brain MRI; Cervical spine MRI; MRI orbit face neck; Chest x-ray; --History of HIV; continue home medications Supportive care --Remote history of PE; not on anticoagulation --Obesity; BMI 39.6 Preventative counseling done Spent 17 minutes Advised diet modification and exercise as tolerated and weight reduction --DVT prophylaxis; Lovenox Monitor closely and adjust management as needed Follow note her workup, neurology evaluation and recommendations Plan of care is reviewed with the patient and her nurse I also discussed the case with neurologist Disposition; follow pending MRI orbit face neck study If negative and patient is stable, may be discharged home tomorrow History Interval history: Patient seen and examined medical records reviewed Patient continues to have upper extremity weakness Neuro workup so far negative Neurology recommended MRI orbit face neck, and brachial plexus Patient alert and awake In mild distress Vital signs noted Hospitalist Physical - Constitutional Vitals: Temp Pulse Resp BP Pulse Ox 98.4 F 77 18 108/58 97 10/22/19 06:07 10/22/19 06:07 10/22/19 06:07 10/22/19 06:07 10/22/19 06:07 General appearance: Present: mild distress, well-nourished - EENT Eyes: Present: PERRL, EOM intact - Neck Neck: Present: supple, normal ROM - Respiratory Respiratory effort: normal Respiratory: bilateral: diminished, negative: rales, rhonchi, wheezing - Cardiovascular Rhythm: regular Heart Sounds: Present: S1 & S2 - Extremities Extremities: no ischemia, No edema - Abdominal General gastrointestinal: soft, non-tender, non-distended, normal bowel sounds - Integumentary Integumentary: Present: clear, warm - Psychiatric Psychiatric: appropriate mood/affect, cooperative - Neurologic Neurologic: moves all extremities Results - Labs CBC & Chem 7: 10/21/19 01:52 10/21/19 01:52 Labs: Laboratory Last Values WBC 7.9 K/mm3 (4.5-11.0) 10/21/19 01:52 RBC 4.39 M/mm3 (3.65-5.03) 10/21/19 01:52 Hgb 13.5 gm/dl (10.1-14.3) 10/21/19 01:52 Hct 40.4 % (30.3-42.9) 10/21/19 01:52 MCV 92 fl (79-97) 10/21/19 01:52 MCH 31 pg (28-32) 10/21/19 01:52 MCHC 34 % (30-34) 10/21/19 01:52 RDW 14.3 % (13.2-15.2) 10/21/19 01:52 Plt Count 251 K/mm3 (140-440) 10/21/19 01:52 Lymph % (Auto) 41.3 % (13.4-35.0) H 10/21/19 01:52 [place] % (Auto) 8.5 % (0.0-7.3) H 10/21/19 01:52 Eos % (Auto) 2.1 % (0.0-4.3) 10/21/19 01:52 Baso % (Auto) 0.4 % (0.0-1.8) 10/21/19 01:52 Lymph # 3.3 K/mm3 (1.2-5.4) 10/21/19 01:52 [place] # 0.7 K/mm3 (0.0-0.8) 10/21/19 01:52 Eos # 0.2 K/mm3 (0.0-0.4) 10/21/19 01:52 Baso # 0.0 K/mm3 (0.0-0.1) 10/21/19 01:52 Seg Neutrophils % 47.7 % (40.0-70.0) 10/21/19 01:52 Seg Neutrophils # 3.8 K/mm3 (1.8-7.7) 10/21/19 01:52 D-Dimer 341.23 ng/mlDDU (0-234) H 10/21/19 04:53 Sodium 139 mmol/L (137-145) 10/21/19 01:52 Potassium 3.9 mmol/L (3.6-5.0) 10/21/19 01:52 Chloride 104.6 mmol/L (98-107) 10/21/19 01:52 Carbon Dioxide 23 mmol/L (22-30) 10/21/19 01:52 Anion Gap 15 mmol/L 10/21/19 01:52 BUN 17 mg/dL (7-17) 10/21/19 01:52 Creatinine 0.9 mg/dL (0.7-1.2) 10/21/19 01:52 Estimated GFR > 60 ml/min 10/21/19 01:52 BUN/Creatinine Ratio 19 % 10/21/19 01:52 Glucose 87 mg/dL (65-100) 10/21/19 01:52 Calcium 9.2 mg/dL (8.4-10.2) 10/21/19 01:52 Troponin T < 0.010 ng/mL (0.00-0.029) 10/21/19 04:40 Triglycerides 51 mg/dL (2-149) 10/22/19 06:40 Cholesterol 137 mg/dL (50-199) 10/22/19 06:40 LDL Cholesterol Direct 79 mg/dL (50-130) 10/22/19 06:40 HDL Cholesterol 57 mg/dL (40-59) 10/22/19 06:40 Cholesterol/HDL Ratio 2.40 % 10/22/19 06:40 TSH 1.610 mlU/mL (0.270-4.200) 10/21/19 01:52 HCG, Qual Negative (Negative) 10/21/19 01:52 Urine Color [place] (Yellow) 10/21/19 02:50 Urine Turbidity Turbid (Clear) 10/21/19 02:50 Urine pH 5.0 (5.0-7.0) 10/21/19 02:50 Ur Specific [place] 1.030 (1.003-1.030) 10/21/19 02:50 Urine Protein 30 mg/dl mg/dL (Negative) 10/21/19 02:50 Urine Glucose (UA) Neg mg/dL (Negative) 10/21/19 02:50 Urine Ketones Neg mg/dL (Negative) 10/21/19 02:50 Urine Blood Neg (Negative) 10/21/19 02:50 Urine Nitrite Neg (Negative) 10/21/19 02:50 Urine Bilirubin Neg (Negative) 10/21/19 02:50 Urine Urobilinogen 2.0 mg/dL (<2.0) 10/21/19 02:50 Ur Leukocyte Esterase Mod (Negative) 10/21/19 02:50 Urine WBC (Auto) 22.0 /HPF (0.0-6.0) H 10/21/19 02:50 Urine RBC (Auto) 3.0 /HPF (0.0-6.0) 10/21/19 02:50 U Epithel Cells (Auto) 16.0 /HPF (0-13.0) H 10/21/19 02:50 Urine Bacteria (Auto) 1+ /HPF (Negative) 10/21/19 02:50 Urine Mucus Few /HPF 10/21/19 02:50 Active Medications - Current Medications Current Medications: Generic Name Dose Route Start Last Admin Trade Name Freq PRN Reason Stop Dose Admin Albuterol 2.5 mg 10/21/19 11:25 10/21/19 12:32 Proventil IH 2.5 mg Q6HRT PRN Administration Shortness Of Breath Aspirin 325 mg 10/21/19 14:30 10/22/19 09:29 Aspirin PO 325 mg QDAY NAN Administration Atorvastatin Calcium 20 mg 10/21/19 22:00 10/21/19 21:22 Lipitor PO 20 mg QHS NAN Administration Methocarbamol 500 mg 10/21/19 13:13 10/22/19 09:29 Robaxin PO 500 mg Q6H PRN Administration Muscle Spasm Miscellaneous Medication 1 each 10/22/19 10:00 Emtricita/Rilpivirine/Tenof Df [Complera Tablet] PO DAILY NAN Morphine Sulfate 2 mg 10/21/19 13:15 10/22/19 05:14 Morphine IV 2 mg Q6H PRN Administration Pain, Moderate (4-6) Trimethoprim/Sulfamethoxazole 1 each 10/21/19 14:30 10/22/19 09:29 Bactrim Ds PO 1 each BID NAN Administration
--- NOTE | 2019-10-22 13:38 | Progress Note ---
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 CT head negative, not a candidate for TPA Aspirin and statin, lipid panel, PT Neurology consult --History of HIV; continue home medications Supportive care --Remote history of PE; stable --Obesity; BMI 39.6 Preventative counseling done Spent 17 minutes Advised diet modification and exercise as tolerated and weight reduction --DVT prophylaxis; [place] Hospitalist Physical - Constitutional Vitals: Temp Pulse Resp BP Pulse Ox 98.4 F 77 18 108/58 97 10/22/19 06:07 10/22/19 06:07 10/22/19 06:07 10/22/19 06:07 10/22/19 06:07 General appearance: Present: no acute distress, well-nourished Results - Labs CBC & Chem 7: 10/21/19 01:52 10/21/19 01:52 Labs: Laboratory Last Values WBC 7.9 K/mm3 (4.5-11.0) 10/21/19 01:52 RBC 4.39 M/mm3 (3.65-5.03) 10/21/19 01:52 Hgb 13.5 gm/dl (10.1-14.3) 10/21/19 01:52 Hct 40.4 % (30.3-42.9) 10/21/19 01:52 MCV 92 fl (79-97) 10/21/19 01:52 MCH 31 pg (28-32) 10/21/19 01:52 MCHC 34 % (30-34) 10/21/19 01:52 RDW 14.3 % (13.2-15.2) 10/21/19 01:52 Plt Count 251 K/mm3 (140-440) 10/21/19 01:52 Lymph % (Auto) 41.3 % (13.4-35.0) H 10/21/19 01:52 [place] % (Auto) 8.5 % (0.0-7.3) H 10/21/19 01:52 Eos % (Auto) 2.1 % (0.0-4.3) 10/21/19 01:52 Baso % (Auto) 0.4 % (0.0-1.8) 10/21/19 01:52 Lymph # 3.3 K/mm3 (1.2-5.4) 10/21/19 01:52 [place] # 0.7 K/mm3 (0.0-0.8) 10/21/19 01:52 Eos # 0.2 K/mm3 (0.0-0.4) 10/21/19 01:52 Baso # 0.0 K/mm3 (0.0-0.1) 10/21/19 01:52 Seg Neutrophils % 47.7 % (40.0-70.0) 10/21/19 01:52 Seg Neutrophils # 3.8 K/mm3 (1.8-7.7) 10/21/19 01:52 D-Dimer 341.23 ng/mlDDU (0-234) H 10/21/19 04:53 Sodium 139 mmol/L (137-145) 10/21/19 01:52 Potassium 3.9 mmol/L (3.6-5.0) 10/21/19 01:52 Chloride 104.6 mmol/L (98-107) 10/21/19 01:52 Carbon Dioxide 23 mmol/L (22-30) 10/21/19 01:52 Anion Gap 15 mmol/L 10/21/19 01:52 BUN 17 mg/dL (7-17) 10/21/19 01:52 Creatinine 0.9 mg/dL (0.7-1.2) 10/21/19 01:52 Estimated GFR > 60 ml/min 10/21/19 01:52 BUN/Creatinine Ratio 19 % 10/21/19 01:52 Glucose 87 mg/dL (65-100) 10/21/19 01:52 Calcium 9.2 mg/dL (8.4-10.2) 10/21/19 01:52 Troponin T < 0.010 ng/mL (0.00-0.029) 10/21/19 04:40 Triglycerides 51 mg/dL (2-149) 10/22/19 06:40 Cholesterol 137 mg/dL (50-199) 10/22/19 06:40 LDL Cholesterol Direct 79 mg/dL (50-130) 10/22/19 06:40 HDL Cholesterol 57 mg/dL (40-59) 10/22/19 06:40 Cholesterol/HDL Ratio 2.40 % 10/22/19 06:40 TSH 1.610 mlU/mL (0.270-4.200) 10/21/19 01:52 HCG, Qual Negative (Negative) 10/21/19 01:52 Urine Color [place] (Yellow) 10/21/19 02:50 Urine Turbidity Turbid (Clear) 10/21/19 02:50 Urine pH 5.0 (5.0-7.0) 10/21/19 02:50 Ur Specific [place] 1.030 (1.003-1.030) 10/21/19 02:50 Urine Protein 30 mg/dl mg/dL (Negative) 10/21/19 02:50 Urine Glucose (UA) Neg mg/dL (Negative) 10/21/19 02:50 Urine Ketones Neg mg/dL (Negative) 10/21/19 02:50 Urine Blood Neg (Negative) 10/21/19 02:50 Urine Nitrite Neg (Negative) 10/21/19 02:50 Urine Bilirubin Neg (Negative) 10/21/19 02:50 Urine Urobilinogen 2.0 mg/dL (<2.0) 10/21/19 02:50 Ur Leukocyte Esterase Mod (Negative) 10/21/19 02:50 Urine WBC (Auto) 22.0 /HPF (0.0-6.0) H 10/21/19 02:50 Urine RBC (Auto) 3.0 /HPF (0.0-6.0) 10/21/19 02:50 U Epithel Cells (Auto) 16.0 /HPF (0-13.0) H 10/21/19 02:50 Urine Bacteria (Auto) 1+ /HPF (Negative) 10/21/19 02:50 Urine Mucus Few /HPF 10/21/19 02:50 Active Medications - Current Medications Current Medications: Generic Name Dose Route Start Last Admin Trade Name Freq PRN Reason Stop Dose Admin Albuterol 2.5 mg 10/21/19 11:25 10/21/19 12:32 Proventil IH 2.5 mg Q6HRT PRN Administration Shortness Of Breath Aspirin 325 mg 10/21/19 14:30 10/22/19 09:29 Aspirin PO 325 mg QDAY NAN Administration Atorvastatin Calcium 20 mg 10/21/19 22:00 10/21/19 21:22 Lipitor PO 20 mg QHS NAN Administration Methocarbamol 500 mg 10/21/19 13:13 10/22/19 09:29 Robaxin PO 500 mg Q6H PRN Administration Muscle Spasm Miscellaneous Medication 1 each 10/22/19 10:00 Emtricita/Rilpivirine/Tenof Df [Complera Tablet] PO DAILY NAN Morphine Sulfate 2 mg 10/21/19 13:15 10/22/19 12:01 Morphine IV 2 mg Q6H PRN Administration Pain, Moderate (4-6) Trimethoprim/Sulfamethoxazole 1 each 10/21/19 14:30 10/22/19 09:29 Bactrim Ds PO 1 each BID NAN Administration Nutrition/Malnutrition Assess - Dietary Evaluation Nutrition/Malnutrition Findings: Nutrition Notes Start: 10/22/19 12:45 Freq: Status: Active Protocol: Document 10/22/19 12:45 AP (Rec: 10/22/19 12:54 AP [id number]) Co-Sign 10/22/19 12:45 LP Nutrition Notes Need for Assessment generated from: MD Order,MST Initial or Follow up Assessment Other Pertinent Diagnosis HIV, SOB, PE, LUE weakness, asthma Current Diet Cardiac Labs/Tests Reviewed Pertinent Medications morphine Height 5 ft 5 in Weight 108.3 kg Usual Body Weight 118 kg [place] Body Weight (kg) 56.81 BMI 39.7 Intake Prior to Admission Fair Weight change and time frame 4% in three weeks Weight Status Obese Subjective/Other Information MD consult for MST. Pt states losing about 10 pounds in three weeks. Pt consumed 20% of bfast tray and has had no appetite instay, asked for strawberry ensure. No wasting noted. Burn Absent Trauma Absent GI Symptoms None Current % PO Poor (25-49%) Minimum of two criteria No physical signs of malnutrition Interpretation of Weight Loss (non- 5% in 1 month severe) #1 Nutrition Diagnosis Inadequate oral intake Etiology asthma, SOB, weakness As Evidenced by Signs and Symptoms Pt states poor PO intakes, poor appetite Is patient on ventilator? No Is Patient Ambulatory and/or Out of Bed Yes REE-(Gueydan-St. Jeor-ambulatory/OOB) [ 2332.044 NUTR.[id number]] Kcal/Kg value to use for calculation 16 Approximate Energy Requirements Using 1733 kcal/Kg Calculation Used for Recommendations Kcal/kg Additional Notes PRO needs: 65-82g (0.8-1g/kg 82kg AdBW) Fluid: 1ml/kcal or per MD Nutrition Intervention Change Diet Order: Continue cardiac Add Supplement/Snack (indicate name/kcal Ensure enlive /protein ) Provides kCal: 350 Provides Protein (gm) 20 Goal #1 Pt meet >80% kcal/PRO needs via PO/ONS. Anticipated Discharge Needs: Cardiac Follow-Up By: 10/25/19 Additional Comments F/U for PO/ONS intakes
--- NOTE | 2019-10-22 16:27 | Progress Note ---
Assessment and Plan Patient is a 34-year-old woman with a history of PE, asthma, HIV, who presents with left upper extremity numbness and weakness. According the patient's clinical findings, it is possible that the patient may have a stroke or myelopathy. Alternatively, there is a possibility that the patient may have conversion disorder. Plan: 1. LUE weakness: - MRI brain with and without: No acute abnormality - MRI cervical spine with and without contrast: No acute abnormality - Check MRI Left brachial plexus. Recommend for patient to follow up with outpatient neurology for EMG/NCS. - Will sign off, as I am not covering neurology service over the weekend. Recommend consult neurologist covering service over the weekend for further neurologic monitoring and management. 2. UTI: - Patient also found to have a UTI, treated per primary. Thank you for allowing me to take part in the care of this patient. Raul Shaver MD Neurology Subjective Date of service: 10/22/19 Principal diagnosis: LUE weakness Interval history: Patient continues to complain of left upper extremity weakness, numbness, and left shoulder and neck pain. Objective - Exam Narrative Exam: Patient is alert, awake, oriented x4, follows complex commands. PERRL, EOMI, VFF, no facial weakness noted, tongue midline, decreased on Lt. to LT. No dysarthria or aphasia noted. 5/5 in RUE/RLE/LLE, LUE proximal 5/5 distal 3/5. Decreased on Lt. to LT. B/l intact to FTN and HTS. 2+ reflexes throughout. - Vital Sign Vital Signs - 12hr 10/22/19 10/22/19 10/22/19 05:14 06:07 11:36 Temperature 98.4 F 98.9 F Pulse Rate 77 83 Respiratory 20 18 19 Rate Blood Pressure 108/58 123/76 O2 Sat by Pulse 97 97 Oximetry - General Apperance Constitutional: comfortable - EENT EENT: ATNC, PERRL, mucous membranes moist, hearing intact, vision intact - Respiratory Respiratory: lungs clear, normal breath sounds - Cardiovascular Cardiovascular: regular rate, normal S1, normal S2 Extremities: no clubbing, cyanosis, no inflammation - Gastrointestinal Gastrointestinal: normoactive bowel sounds, soft, non-tender - Integumentary Integumentary: normal - Musculoskeletal Musculoskeletal: pain in joint, no fluid collection - Psychiatric Psychiatric: mood/affect appropriate - Laboratory Findings CBC and BMP: 10/21/19 01:52 10/21/19 01:52 Abnormal Lab Findings: Abnormal Labs 10/21/19 10/21/19 10/21/19 01:52 02:50 04:53 Lymph % (Auto) 41.3 H [place] % (Auto) 8.5 H D-Dimer 341.23 H Urine WBC (Auto) 22.0 H U Epithel Cells (Auto) 16.0 H
--- NOTE | 2019-10-22 16:45 | Magnetic Resonance Report ---
BRACHIAL PLEXUS MRI 10/22/2019 HISTORY: Left UE numb/weak FINDINGS: Unenhanced and enhanced MR images were obtained through the brachial plexus. Patient motion artifact is present on these images. There is no evidence of abnormal mass, signal, or contrast enhancement along the expected course in p osition of the brachial plexus on the right or left. There is no evidence of abnormality in the vicin ity of the lung apices. IMPRESSION: No significant abnormality. All CT scans at this location are performed using dose reduction to ALARA by means of automated expos ure control. Signer Name: Aris Borges MD Signed: 10/22/2019 4:41 PM Workstation Name: [id number]
[2019-10-23] MEDS: MORPHINE 2 MG/1 ML INJ IV PRN ×3 (01:52→15:15)
[2019-10-23] MEDS: SULFAMETHOXAZOLE/TRIMETHOPRIM 800/160MG DS TAB PO SCH (09:42)
[2019-10-23] MEDS: ASPIRIN 325 MG TAB PO SCH (09:42)
[2019-10-23] MEDS: ALBUTEROL 2.5 MG/3 ML NEBU IH PRN (14:15)
--- NOTE | 2019-10-23 16:31 | Discharge Summary ---
Providers - Providers Date of Admission: 10/21/19 07:54 Date of discharge: 10/23/19 Attending physician: SKYLA FOSTER 10/21/19 13:24 Consult to Physician [CONS] Routine Comment: Consulting Provider: WINSOME KENDALL Physician Instructions: Reason For Exam: Lt and LE weakness 10/21/19 19:08 Physical Therapy Evaluation and Treat [CONS] Routine Comment: Reason For Exam: LUE weakness 10/21/19 19:09 Occupational Therapy Evaluate and Treat [CONS] Routine Comment: Reason For Exam: LUE weakness 10/21/19 19:31 Consult to Dietitian/Nutrition [CONS] Routine Physician Instructions: Reason For Exam: Reason for Consult: Pt needs oral supplement Primary care physician: LICENSED CLINICAL PSYCHOLOGIST Hospitalization Condition: Stable Hospital course: --Left upper extremity weakness; possible radiculopathy Plan medications , physical therapy occupational therapy Neurology evaluation ,recommendations noted and appreciated --Left upper extremity weakness with numerous symptoms ; Possible CVA . CT head negative, not a candidate for TPA Aspirin and statin, lipid panel, PT will take Neurology following CT head without contrast; Cervical spine CT; CTA chest; Brain MRI; Cervical spine MRI; MRI orbit face neck; Chest x-ray; --History of HIV; continue home medications Supportive care --Remote history of PE; not on anticoagulation --Obesity; BMI 39.6 Preventative counseling done Spent 17 minutes Advised diet modification and exercise as tolerated and weight reduction --DVT prophylaxis; Lovenox Monitor closely and adjust management as needed Follow note her workup, neurology evaluation and recommendations Plan of care is reviewed with the patient and her nurse I also discussed the case with neurologist Disposition; follow pending MRI orbit face neck study If negative and patient is stable, may be discharged home tomorrow Disposition: DC-[id number] TO HOME OR SELFCARE Time spent for discharge: 32 min Core Measure Documentation - Palliative Care Palliative Care/ Comfort Measures: Not Applicable - Core Measures Any of the following diagnoses?: none Exam - Constitutional Vitals: Temp Pulse Resp BP Pulse Ox 98.7 F 81 20 92/56 94 10/23/19 12:03 10/23/19 14:15 10/23/19 14:15 10/23/19 12:03 10/23/19 12:03 General appearance: Present: no acute distress, well-nourished - EENT Eyes: Present: PERRL, EOM intact - Neck Neck: Present: supple, normal ROM - Respiratory Respiratory effort: normal Respiratory: bilateral: diminished, negative: rales, rhonchi, wheezing - Cardiovascular Rhythm: regular Heart Sounds: Present: S1 & S2 - Extremities Extremities: no ischemia, No edema - Abdominal General gastrointestinal: Present: soft, non-tender, non-distended, normal bowel sounds - Integumentary Integumentary: Present: clear, warm - Musculoskeletal Musculoskeletal: strength equal bilaterally - Psychiatric Psychiatric: appropriate mood/affect, cooperative Plan Activity: no restrictions Diet: low cholesterol Additional Instructions: Recommend outpatient follow up with neurology in 1 week for. EMG/NCS[Nerve conduction studies] Follow up with: PRIMARY CARE, [Primary Care Provider] - 7 Days CARLIN CHARLTON MD [Staff Physician] - 7 Days Prescriptions: Sulfamethoxazole/Trimethoprim [Bactrim DS TAB] 1 each PO BID #14 tablet oxyCODONE /ACETAMINOPHEN [Percocet 5/325] 1 tab PO BID PRN #6 tablet PRN Reason: Pain , Severe (7-10)
[2019-10-23 18:48] VITALS: BP 105/66
== END 2019-10-23 19:00 | disposition home or self-care (01) ==
LOC: ED 01:17 → 3A 07:54
PROVIDERS: ADMIT Internal Medicine; ATTEND Internal Medicine
DX: J45.901 Unspecified asthma with (acute) exacerbation (principal); R06.02 Shortness of breath; R20.0 Anesthesia of skin; M62.81 Muscle weakness (generalized); N39.0 Urinary tract infection, site not specified; E66.9 Obesity, unspecified; Z68.39 Body mass index [BMI] 39.0-39.9, adult; Z21 Asymptomatic human immunodeficiency virus [HIV] infection status; Z86.711 Personal history of pulmonary embolism; Z98.51 Tubal ligation status
CPT/HCPCS: 36415; 70450; 70543; 70553; 71045; 71275; 72125; 72156; 80048; 80061; 81001; 84443; 84484; 84703; 85025; 85379; 87086; 93005; 93010; 94640; 96374; 96375; 96376; 97162; 97165; 99284; A9270; A9577; G0378; J1885; J2270; J2405; J2930; Q9967

== ENCOUNTER 2019-11-12 20:33 | Emergency (ER) | payer SELFPAY ==
--- NOTE | 2019-11-12 21:29 | Event Note ---
ED Screening Note Date of service: 11/12/19 Time: 21:27 ED Screening Note: This is a 34 y.o. F. that presents to the ER with vaginal discharge and hematuria x 4 days. Denies urinary frequency, dysuria, pelvic pain, back pain, fever, or chills. LMP 10/31/19 This initial assessment/diagnostic orders/clinical plan/treatment(s) is/are subject to change based on patients health status, clinical progression and re- assessment by fellow clinical providers in the ED. Further treatment and workup at subsequent clinical providers discretion. Patient/guardian urged not to elope from the ED as their condition may be serious if not clinically assessed and managed. Initial orders include: UA urine test
[2019-11-12 21:48] LABS: HCG Qualitative,Urine Negative (Negative)
[2019-11-12 21:49] LABS: Bilirubin,Urine NEG (Negative); Blood,Urine NEG (Negative); Color,Urine Yellow (Yellow); Mucus,Urine FEW /HPF; Protein,Urine <15 mg/dL mg/dL (Negative); Urobilinogen,Urine < 2.0 mg/dL (<2.0)
--- NOTE | 2019-11-12 23:42 | Emergency Department Report ---
ED Female HPI - General Chief complaint: Urogenital-Female Stated complaint: DISCHARGE Time Seen by Provider: 11/12/19 21:27 Source: patient Mode of arrival: Ambulatory Limitations: No Limitations - History of Present Illness Initial comments: 34-year-old F Taiwanese female presents emerged department complaining of a fishy vaginal odor and reports having current issues with bacterial vaginosis and thinks she is having another flare. Reports no pelvic pain reports no dysuria reports no fever, chills, sweats no diarrhea no constipation no vaginal trauma. MD Complaint: vaginal discharge -: Gradual, days(s) Improves with: none Worsens with: none Are you Now?: No Associated Symptoms: vaginal discharge. denies: loss of appetite, dysuria, hematuria, shortness of breath, syncope, weakness - Related Data Sexually active: Yes Home Medications Medication Instructions Recorded Confirmed Last Taken Emtricita/Rilpivirine/Tenof Df 1 each PO DAILY 10/21/19 10/21/19 10/19/19 17:00 [Complera Tablet] Previous Rx's Medication Instructions Recorded Last Taken Type methOCARBAMOL [Robaxin TAB] 500 mg PO Q6H PRN #15 tablet 11/16/18 Unknown Rx Sulfamethoxazole/Trimethoprim 1 each PO BID #14 tablet 10/23/19 Unknown Rx [Bactrim DS TAB] oxyCODONE /ACETAMINOPHEN [Percocet 1 tab PO BID PRN #6 tablet 10/23/19 Unknown Rx 5/325] Fluconazole [Diflucan TAB] 150 mg PO ONCE #1 tablet 11/12/19 Unknown Rx metroNIDAZOLE [Flagyl] 2,000 mg PO ONCE #4 tablet 11/12/19 Unknown Rx Allergies Allergy/AdvReac Type Severity Reaction Status Date / Time shrimp Allergy Swelling Verified 10/11/19 13:41 tramadol AdvReac Hives Verified 01/24/18 11:53 ED Review of Systems ROS: Stated complaint: DISCHARGE Other details as noted in HPI Comment: All other systems reviewed and negative ED Past Medical Hx - Past Medical History Previous Medical History?: Yes Hx Pulmonary Embolism: Yes (2014) Hx Asthma: Yes Hx HIV: Yes - Surgical History Past Surgical History?: Yes Additional Surgical History: tubligation 2011 - Social History Smoking Status: Never Smoker Substance Use Type: None - Medications Home Medications: Home Medications Medication Instructions Recorded Confirmed Last Taken Type methOCARBAMOL [Robaxin TAB] 500 mg PO Q6H PRN #15 tablet 11/16/18 10/21/19 Unknown Rx Emtricita/Rilpivirine/Tenof Df 1 each PO DAILY 10/21/19 10/21/19 10/19/19 17:00 History [Complera Tablet] Sulfamethoxazole/Trimethoprim 1 each PO BID #14 tablet 10/23/19 Unknown Rx [Bactrim DS TAB] oxyCODONE /ACETAMINOPHEN [Percocet 1 tab PO BID PRN #6 tablet 10/23/19 Unknown Rx 5/325] Fluconazole [Diflucan TAB] 150 mg PO ONCE #1 tablet 11/12/19 Unknown Rx metroNIDAZOLE [Flagyl] 2,000 mg PO ONCE #4 tablet 11/12/19 Unknown Rx ED Physical Exam - General Limitations: No Limitations General appearance: alert, in no apparent distress - Head Head exam: Present: atraumatic, normocephalic - Eye Eye exam: Present: normal appearance - ENT ENT exam: Present: mucous membranes moist - Neck Neck exam: Present: normal inspection - Respiratory Respiratory exam: Present: normal lung sounds bilaterally. Absent: respiratory distress - Cardiovascular Cardiovascular Exam: Present: regular rate, normal rhythm. Absent: systolic murmur, diastolic murmur, rubs, gallop - GI/Abdominal GI/Abdominal exam: Present: soft, normal bowel sounds - Extremities Exam Extremities exam: Present: normal inspection - Back Exam Back exam: Present: normal inspection - Neurological Exam Neurological exam: Present: alert, oriented X3 - Psychiatric Psychiatric exam: Present: normal affect, normal mood - Skin Skin exam: Present: warm, dry, intact, normal color. Absent: rash ED Course Vital Signs 11/12/19 20:47 Temperature 97.9 F Pulse Rate 74 Respiratory 16 Rate Blood Pressure 141/82 O2 Sat by Pulse 100 Oximetry ED Medical Decision Making - Medical Decision Making 34-year-old -[place]ai[place]ese female with past medical history including HIV having a vaginal discharge which she has a strong suspicion of being bacterial vaginosis or even yeast infection. She requests treatment for bacterial vaginosis and states that she will return if her symptoms do not improve states she is pain-free and has no real concern for an STD or . Critical care attestation.: If time is entered above; I have spent that time in minutes in the direct care of this critically ill patient, excluding procedure time. ED Disposition Clinical Impression: Vaginitis Disposition: DC-01 TO HOME OR SELFCARE Is pt being admited?: No Does the pt Need Aspirin: No Condition: Stable Instructions: Metronidazole (Vaginal), Bacterial Vaginosis (ED) Prescriptions: Fluconazole [Diflucan TAB] 150 mg PO ONCE #1 tablet metroNIDAZOLE [Flagyl] 2,000 mg PO ONCE #4 tablet Referrals: IVÁN GOMEZ MD [Primary Care Provider] - 3-5 Days
[2019-11-13 00:18] VITALS: BP 145/82
== END 2019-11-13 00:19 | disposition home or self-care (01) ==
LOC: ED 20:33
DX: N76.0 Acute vaginitis (principal); J45.909 Unspecified asthma, uncomplicated; Z91.013 Allergy to seafood; Z88.6 Allergy status to analgesic agent; Z98.51 Tubal ligation status; Z79.899 Other long term (current) drug therapy; Z21 Asymptomatic human immunodeficiency virus [HIV] infection status; Z86.711 Personal history of pulmonary embolism
CPT/HCPCS: 81001; 81025; 99283

== ENCOUNTER 2019-11-18 21:24 | Emergency (ER) | payer SELFPAY ==
[2019-11-18 21:40] VITALS: BP 125/90
--- NOTE | 2019-11-18 22:16 | XRay Report ---
LEFT TIBIA-FIBULA 2 VIEW(S) INDICATION / CLINICAL INFORMATION: pain left tib/fib COMPARISON: None available. FINDINGS: BONES / JOINT(S): No acute fracture or subluxation. No significant arthritis. SOFT TISSUES: No significant abnormality. ADDITIONAL FINDINGS: None. Signer Name: Wilbur Hernandez MD Signed: 11/18/2019 10:12 PM Workstation Name: [id number]
--- NOTE | 2019-11-18 23:04 | Emergency Department Report ---
ED Lower Extremity HPI - General Chief Complaint: Extremity Injury, Lower Stated Complaint: LT LEG PAIN Time Seen by Provider: 11/18/19 21:47 Source: patient Mode of arrival: Ambulatory Limitations: No Limitations - History of Present Illness Initial Comments: This is a 34-year-old -Tunisian female who presents the emergency room with left andrade pain from a direct blow. Patient states she was at work when she hit her left leg on a metal rack at her job. Patient states initially she took 2 Tylenol and sit down for 15 minutes. Patient states when she attempts to get up she could barely apply weight to the left lower extremity. She denies swelling, numbness or tingling, laceration, weakness, or redness. MD Complaint: leg injury (left) -: This evening Time: 18:30 Injury: Leg: Left Type of Injury: blunt Place: work Severity: moderate Severity scale (0 -10): 7 Improves With: nothing Worsens With: weight bearing Context: direct blow Associated Symptoms: able to partially bear weight Treatments Prior to Arrival: NSAIDS - Related Data Home Medications Medication Instructions Recorded Confirmed Last Taken Emtricita/Rilpivirine/Tenof Df 1 each PO DAILY 10/21/19 10/21/19 10/19/19 17:00 [Complera Tablet] Previous Rx's Medication Instructions Recorded Last Taken Type methOCARBAMOL [Robaxin TAB] 500 mg PO Q6H PRN #15 tablet 11/16/18 Unknown Rx Sulfamethoxazole/Trimethoprim 1 each PO BID #14 tablet 10/23/19 Unknown Rx [Bactrim DS TAB] oxyCODONE /ACETAMINOPHEN [Percocet 1 tab PO BID PRN #6 tablet 10/23/19 Unknown Rx 5/325] Fluconazole [Diflucan TAB] 150 mg PO ONCE #1 tablet 11/12/19 Unknown Rx metroNIDAZOLE [Flagyl] 2,000 mg PO ONCE #4 tablet 11/12/19 Unknown Rx Acetaminophen/Codeine [Tylenol 1 tab PO Q6H PRN #12 tab 11/18/19 Unknown Rx /Codeine # 3 tab] Naproxen [Naprosyn] 500 mg PO BID PRN #20 tablet 11/18/19 Unknown Rx Allergies Allergy/AdvReac Type Severity Reaction Status Date / Time shrimp Allergy Swelling Verified 10/11/19 13:41 tramadol AdvReac Hives Verified 01/24/18 11:53 ED Review of Systems ROS: Stated complaint: LT LEG PAIN Other details as noted in HPI Constitutional: denies: chills, fever Respiratory: denies: cough, shortness of breath, wheezing Cardiovascular: denies: chest pain, palpitations Gastrointestinal: denies: abdominal pain, nausea, diarrhea Musculoskeletal: arthralgia (Left lower extremity). denies: back pain, joint swelling Skin: denies: rash, lesions Neurological: denies: headache, weakness, paresthesias Psychiatric: denies: anxiety, depression ED Past Medical Hx - Past Medical History Previous Medical History?: Yes Hx Pulmonary Embolism: Yes (2014) Hx Asthma: Yes Hx HIV: Yes - Surgical History Past Surgical History?: Yes Additional Surgical History: tubligation 2011 - Social History Smoking Status: Never Smoker Substance Use Type: None - Medications Home Medications: Home Medications Medication Instructions Recorded Confirmed Last Taken Type methOCARBAMOL [Robaxin TAB] 500 mg PO Q6H PRN #15 tablet 11/16/18 10/21/19 Unknown Rx Emtricita/Rilpivirine/Tenof Df 1 each PO DAILY 10/21/19 10/21/19 10/19/19 17:00 History [Complera Tablet] Sulfamethoxazole/Trimethoprim 1 each PO BID #14 tablet 10/23/19 Unknown Rx [Bactrim DS TAB] oxyCODONE /ACETAMINOPHEN [Percocet 1 tab PO BID PRN #6 tablet 10/23/19 Unknown Rx 5/325] Fluconazole [Diflucan TAB] 150 mg PO ONCE #1 tablet 11/12/19 Unknown Rx metroNIDAZOLE [Flagyl] 2,000 mg PO ONCE #4 tablet 11/12/19 Unknown Rx Acetaminophen/Codeine [Tylenol 1 tab PO Q6H PRN #12 tab 11/18/19 Unknown Rx /Codeine # 3 tab] Naproxen [Naprosyn] 500 mg PO BID PRN #20 tablet 11/18/19 Unknown Rx ED Physical Exam - General Limitations: No Limitations General appearance: alert, in no apparent distress, obese (Morbidly) - Respiratory Respiratory exam: Present: normal lung sounds bilaterally. Absent: respiratory distress - Cardiovascular Cardiovascular Exam: Present: regular rate, normal rhythm. Absent: systolic murmur, diastolic murmur, rubs, gallop - GI/Abdominal GI/Abdominal exam: Present: soft, normal bowel sounds. Absent: distended, tenderness, guarding, rebound, rigid - Extremities Exam Extremities exam: Present: normal inspection - Expanded Lower Extremity Exam Left Hip exam: Present: normal inspection, full ROM Upper Leg exam: Present: normal inspection, full ROM Knee exam: Present: normal inspection, full ROM Lower Leg exam: Present: full ROM, tenderness (Tenderness on palpation of medial tibial, no erythema, no ecchymosis, no swelling, no deformity). Absent: swelling, abrasion, laceration, ecchymosis, deformity, crepidus, dislocation, erythema, palpable cord, Donnell's sign Ankle exam: Present: normal inspection, full ROM Foot/Toe exam: Present: normal inspection, full ROM Neuro vascular tendon exam: Present: no vascular compromise Gait: Positive: observed and limited by pain - Neurological Exam Neurological exam: Present: alert, oriented X3, normal gait - Psychiatric Psychiatric exam: Present: normal affect, normal mood - Skin Skin exam: Present: warm, dry, intact, normal color. Absent: rash ED Course Vital Signs 11/18/19 21:35 Temperature 98.6 F Pulse Rate 88 Respiratory 16 Rate Blood Pressure 125/90 O2 Sat by Pulse 99 Oximetry ED Lower Extremity MDM - Radiology Data Radiology results: report reviewed LEFT TIBIA-FIBULA 2 VIEW(S) INDICATION / CLINICAL INFORMATION: pain left tib/fib COMPARISON: None available. FINDINGS: BONES / JOINT(S): No acute fracture or subluxation. No significant arthritis. SOFT TISSUES: No significant abnormality. ADDITIONAL FINDINGS: None. - Medical Decision Making 34-year-old female complaining of left tibia-fibula pain for 4-1/2 hours. Patient is nontoxic appearing and stable. Vitals are normal. Obtained x-ray of left tibia-fibula with no acute radiographic findings. On exam there is tenderness on palpation of medial tibial line with no signs of deformity, no swelling, no erythema. Given history, exam, and work-up, there is low suspicion of fracture or trauma. An Charles bandage was applied to left lower extremity. Crutches given with education. Patient given rice therapy instructions. Start analgesics. Patient instructed of symptoms being a self-limiting. Patient discharged home with strict return instructions. Follow-up with primary care physician. Critical care attestation.: If time is entered above; I have spent that time in minutes in the direct care of this critically ill patient, excluding procedure time. ED Disposition Clinical Impression: Pain in left lower leg Strain of tendon of lower extremity Qualifiers: Encounter type: initial encounter Laterality: left Qualified Code(s): S86.912A - Strain of unspecified muscle(s) and tendon(s) at lower leg level, left leg, initial encounter Disposition: TO HOME OR SELFCARE Is pt being admited?: No Condition: Stable Instructions: Arthralgia (ED), Muscle Strain (ED), RICE Therapy (ED) Additional Instructions: Rest Use ice or heat on affected area for 20 minutes and off for 2 hours. Take pain medication as needed for pain. Follow up with Primary Care Provider in 2-3 days. Prescriptions: Naproxen [Naprosyn] 500 mg PO BID PRN #20 tablet PRN Reason: Pain, Moderate (4-6) Acetaminophen/Codeine [Tylenol /Codeine # 3 tab] 1 tab PO Q6H PRN #12 tab PRN Reason: Pain , Severe (7-10) Referrals: ALMA JULES DO [Staff Physician] - 3-5 Days [facility] [Outside] - 3-5 Days [facility] [Outside] - 3-5 Days [facility] [Outside] - 3-5 Days Forms: Work/School Release Form(ED) Time of Disposition: 23:10
== END 2019-11-18 23:20 | disposition home or self-care (01) ==
LOC: ED 21:24
DX: S86.912A Strain of unspecified muscle(s) and tendon(s) at lower leg level, left leg, initial encounter (principal); J45.909 Unspecified asthma, uncomplicated; X58.XXXA Exposure to other specified factors, initial encounter; Y93.89 Activity, other specified; Y92.89 Other specified places as the place of occurrence of the external cause; Y99.8 Other external cause status
CPT/HCPCS: 99283

== ENCOUNTER 2019-12-02 15:36 | Emergency (ER) | payer SELFPAY ==
[2019-12-02 17:12] VITALS: BP 131/90
--- NOTE | 2019-12-02 17:13 | Emergency Department Report ---
Blank Doc - Documentation Documentation: 34-year-old female that presents with vaginal discharge. This initial assessment/diagnostic orders/clinical plan/treatment(s) is/are subject to change based on patient's health status, clinical progression and re- assessment by fellow clinical providers in the ED. Further treatment and workup at subsequent clinical providers discretion. Patient/guardians urged not to elope from the ED as their condition may be serious if not clinically assessed and managed. Initial orders include: 1- Patient sent to [facility] for further evaluation and treatment 2- UA 3- pelvic exam to be done
[2019-12-02 17:57] LABS: Bilirubin,Urine NEG (Negative); Blood,Urine NEG (Negative); Color,Urine Yellow (Yellow); HCG Qualitative,Urine Negative (Negative); Mucus,Urine FEW /HPF; Protein,Urine <15 mg/dL mg/dL (Negative)
[2019-12-02] MEDS ORDERED: metroNIDAZOLE 500 MG TAB PO ONE (20:24)
[2019-12-02] MEDS ORDERED: ONDANSETRON 4 MG ODT TAB PO ONE (20:25)
--- NOTE | 2019-12-02 21:12 | Emergency Department Report ---
ED Female HPI - General Chief complaint: Urogenital-Female Stated complaint: DISCHARGE Time Seen by Provider: 12/02/19 17:12 Source: patient Mode of arrival: Ambulatory Limitations: No Limitations - History of Present Illness Initial comments: Patient is a G1, 34-year-old -Tristanian female with a history of genital herpes and HIV and on ARV medications presents to the ED with complaint of acute onset persistent severe vaginal irritation and pain with malodorous vaginal discharge for the last 1 week. Patient states that she started using a new soap and developed the symptoms but was unsure as to the etiology of this vaginal discharge. Patient denies vaginal bleeding, dysuria, urinary frequency and urgency, abdominal pain, pelvic pain, dyspareunia, fever, chills, cough or sore throat. MD Complaint: vaginal discharge, other (vaginal irritation and pain) -: Sudden, week(s) (1) Location: suprapubic, other (vaginal itching and irritation) Radiation: non-radiating Severity: severe Severity scale (0 -10): 7 Quality: burning, aching Consistency: intermittent Improves with: none Worsens with: urination Are you Now?: No Associated Symptoms: denies other symptoms, vaginal discharge. denies: vaginal bleeding, abdominal pain, nausea/vomiting, fever/chills, headaches, loss of appetite, dysuria, hematuria, rash, seizure, shortness of breath, syncope, weakness, other - Related Data Sexually active: Yes Home Medications Medication Instructions Recorded Confirmed Last Taken Emtricita/Rilpivirine/Tenof Df 1 each PO DAILY 10/21/19 10/21/19 10/19/19 17:00 [Complera Tablet] Previous Rx's Medication Instructions Recorded Last Taken Type methOCARBAMOL [Robaxin TAB] 500 mg PO Q6H PRN #15 tablet 11/16/18 Unknown Rx Sulfamethoxazole/Trimethoprim 1 each PO BID #14 tablet 10/23/19 Unknown Rx [Bactrim DS TAB] oxyCODONE /ACETAMINOPHEN [Percocet 1 tab PO BID PRN #6 tablet 10/23/19 Unknown Rx 5/325] metroNIDAZOLE [Flagyl] 2,000 mg PO ONCE #4 tablet 11/12/19 Unknown Rx Acetaminophen/Codeine [Tylenol 1 tab PO Q6H PRN #12 tab 11/18/19 Unknown Rx /Codeine # 3 tab] Naproxen [Naprosyn] 500 mg PO BID PRN #20 tablet 11/18/19 Unknown Rx Fluconazole [Diflucan TAB] 150 mg PO ONCE #2 tablet 12/02/19 Unknown Rx metroNIDAZOLE [Flagyl] 500 mg PO Q12HR #14 tab 12/02/19 Unknown Rx Allergies Allergy/AdvReac Type Severity Reaction Status Date / Time shrimp Allergy Swelling Verified 10/11/19 13:41 tramadol AdvReac Hives Verified 01/24/18 11:53 ED Review of Systems ROS: Stated complaint: DISCHARGE Other details as noted in HPI Constitutional: denies: chills, fever Eyes: denies: eye pain, eye discharge, vision change ENT: denies: ear pain, throat pain Respiratory: denies: cough, shortness of breath, wheezing Cardiovascular: denies: chest pain, palpitations Endocrine: no symptoms reported Gastrointestinal: denies: abdominal pain, nausea, diarrhea Genitourinary: urgency, dysuria, frequency, discharge, other (vaginal irritation) Musculoskeletal: denies: back pain, joint swelling, arthralgia Skin: denies: rash, lesions Neurological: denies: headache, weakness, paresthesias Psychiatric: denies: anxiety, depression Hematological/Lymphatic: denies: easy bleeding, easy bruising ED Past Medical Hx - Past Medical History Hx Pulmonary Embolism: Yes (2014) Hx Asthma: Yes Hx HIV: Yes - Surgical History Additional Surgical History: tubligation 2011 - Social History Smoking Status: Never Smoker Substance Use Type: None - Medications Home Medications: Home Medications Medication Instructions Recorded Confirmed Last Taken Type methOCARBAMOL [Robaxin TAB] 500 mg PO Q6H PRN #15 tablet 11/16/18 10/21/19 Unknown Rx Emtricita/Rilpivirine/Tenof Df 1 each PO DAILY 10/21/19 10/21/19 10/19/19 17:00 History [Complera Tablet] Sulfamethoxazole/Trimethoprim 1 each PO BID #14 tablet 10/23/19 Unknown Rx [Bactrim DS TAB] oxyCODONE /ACETAMINOPHEN [Percocet 1 tab PO BID PRN #6 tablet 10/23/19 Unknown Rx 5/325] metroNIDAZOLE [Flagyl] 2,000 mg PO ONCE #4 tablet 11/12/19 Unknown Rx Acetaminophen/Codeine [Tylenol 1 tab PO Q6H PRN #12 tab 11/18/19 Unknown Rx /Codeine # 3 tab] Naproxen [Naprosyn] 500 mg PO BID PRN #20 tablet 11/18/19 Unknown Rx Fluconazole [Diflucan TAB] 150 mg PO ONCE #2 tablet 12/02/19 Unknown Rx metroNIDAZOLE [Flagyl] 500 mg PO Q12HR #14 tab 12/02/19 Unknown Rx ED Physical Exam - General Limitations: No Limitations General appearance: alert, in no apparent distress - Head Head exam: Present: atraumatic, normocephalic, normal inspection - Eye Eye exam: Present: normal appearance, PERRL, EOMI Pupils: Present: normal accommodation - ENT ENT exam: Present: normal exam, normal orophraynx, mucous membranes moist, TM's normal bilaterally, normal external ear exam - Neck Neck exam: Present: normal inspection, full ROM - Respiratory Respiratory exam: Present: normal lung sounds bilaterally. Absent: respiratory distress, wheezes, chest wall tenderness, accessory muscle use, decreased breath sounds, prolonged expiratory - Cardiovascular Cardiovascular Exam: Present: regular rate, normal rhythm, normal heart sounds. Absent: systolic murmur, diastolic murmur, rubs, gallop - GI/Abdominal GI/Abdominal exam: Present: soft, normal bowel sounds. Absent: tenderness, guarding, rebound, hyperactive bowel sounds, hypoactive bowel sounds - External exam: Present: normal external exam. 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 Absent: tenderness, CVA tenderness (R), muscle spasm, paraspinal tenderness - Neurological Exam Neurological exam: Present: alert, oriented X3, CN II-XII intact, normal gait, reflexes normal - Psychiatric Psychiatric exam: Present: normal affect, normal mood - Skin Skin exam: Present: warm, dry, intact, normal color. Absent: rash ED Course Vital Signs 12/02/19 17:10 Temperature 98.3 F Pulse Rate 82 Respiratory 18 Rate Blood Pressure 131/90 O2 Sat by Pulse 98 Oximetry ED Medical Decision Making - Medical Decision Making This is a 34-year-old female with a history of genital herpes and HIV who presented to the ED with acute onset persistent vaginal irritation and pain and vaginal discharge that is malodorous for 1 week worse in the last 2 days. In the ED, patient is alert and oriented x3 and is not in distress. Lab test results were reviewed and are all nonactionable. Pelvic exam was unremarkable except for thick yellowish vaginal discharge with malodorous smell. Wet prep test was positive for Gardnerella vaginalis and trichomonas vaginalis as well as Xiomara. Patient was treated in the ED for trichomonas with Flagyl 2 g p.o. x1 and discharged home on Flagyl 500 mg every 12 hours for 7 days and Diflucan for yeast infection. Patient was advised to follow-up at the [facility] for further STD testing and have her sexual partner be treated at the [facility] as well. Patient was advised to return to the ED immediately if symptoms get worse. - Differential Diagnosis UTI; PID; STD; Trichomonas; Bacterial vaginosis Critical care attestation.: If time is entered above; I have spent that time in minutes in the direct care of this critically ill patient, excluding procedure time. ED Disposition Clinical Impression: Bacterial vaginosis, Xiomara vaginitis, Trichomonas vaginalis (TV) infection Disposition: DC-01 TO HOME OR SELFCARE Is pt being admited?: No Does the pt Need Aspirin: No Condition: Stable Instructions: Bacterial Vaginosis (ED), Vaginitis (ED), Trichomoniasis (ED) Additional Instructions: Take medication with food, drink plenty of fluids and follow-up with your PATIENT ACCOUNT SPECIALIST physician or [facility] for further testing and treatme nt. Return to the ED immediately if symptoms get worse. Prescriptions: Fluconazole [Diflucan TAB] 150 mg PO ONCE #2 tablet metroNIDAZOLE [Flagyl] 500 mg PO Q12HR #14 tab Referrals: [facility] [Outside] - 3-5 Days Forms: STI Treatment and Prevention Time of Disposition: 21:16 Print Language: VIETNAMESE
== END 2019-12-02 21:25 | disposition home or self-care (01) ==
LOC: ED 15:36
DX: N76.0 Acute vaginitis (principal); A59.01 Trichomonal vulvovaginitis; J45.909 Unspecified asthma, uncomplicated
CPT/HCPCS: 81001; 81025; 87210; 99284; Q0162

== ENCOUNTER 2020-04-09 19:50 | Emergency (ER) | payer SELFPAY ==
[2020-04-09 20:03] VITALS: BP 142/93
[2020-04-09 20:34] LABS: Basophils % (Auto) 0.5 % (0.0-1.8); Eosinophils # (Auto) 0.1 K/mm3 (0.0-0.4); Eosinophils % (Auto) 2.1 % (0.0-4.3); Hematocrit 41.4 % (30.3-42.9); Hemoglobin 13.7 gm/dl (10.1-14.3); Lymphocytes # (Auto) 3.2 K/mm3 (1.2-5.4); Lymphocytes % (Auto) 48.6 % (13.4-35.0); Mean Corpuscular HGB Conc 33 % (30-34); Mean Corpuscular Volume 92 fl (79-97); Monocytes # (Auto) 0.6 K/mm3 (0.0-0.8); Monocytes % (Auto) 8.6 % (0.0-7.3); Platelet Count 240 K/mm3 (140-440); Red Blood Count 4.51 M/mm3 (3.65-5.03); Red Cell Distribution Width 14.4 % (13.2-15.2)
[2020-04-09 20:49] LABS: Alanine Aminotransferase 46 units/L (7-56); Albumin 3.3 g/dL (3.9-5); BUN/Creatinine Ratio 16; Blood Urea Nitrogen 13 mg/dL (7-17); Hemolysis Index 10
[2020-04-09 20:54] LABS: Bilirubin,Urine NEG (Negative); Blood,Urine NEG (Negative); Color,Urine Yellow (Yellow); Mucus,Urine FEW /HPF; Protein,Urine <15 mg/dL mg/dL (Negative); Urobilinogen,Urine < 2.0 mg/dL (<2.0)
[2020-04-09] MEDS ORDERED: ONDANSETRON 4 MG/2 ML INJ IM ONE (23:08)
[2020-04-09] MEDS ORDERED: fentaNYL 100 MCG/2 ML INJ IM ONE (23:08)
--- NOTE | 2020-04-09 23:12 | Emergency Department Report ---
HPI - General Chief Complaint: Abdominal Pain Time Seen by Provider: 04/09/20 22:56 - HPI HPI: Room 34 The patient is a 34-year-old female present with a chief complaint of right flank and lower abdominal pain. The patient states her symptoms began 3 days ago with pain in the right flank associated with nausea. Patient states she also developed lower abdominal cramping. Patient states since yesterday she has had a clear vaginal discharge. Patient denies dysuria or hematuria. Patient states she is feels the same way she felt 1 month ago when she came to this hospital and was diagnosed with PID. Patient states her LMP was 03/04/2020 and she is normally regular. The patient gives her pain a score of 8/10 and states that it is sharp and intermittent in nature. The patient did not drive to the hospital ED Past Medical Hx - Past Medical History Previous Medical History?: Yes Hx Pulmonary Embolism: Yes (2014) Hx Asthma: Yes Hx HIV: Yes Additional medical history: PE - Surgical History Past Surgical History?: Yes Additional Surgical History: tubal ligation 2011 - Family History Family history: no significant - Social History Smoking Status: Never Smoker Substance Use Type: None (Denies illicit drug use) - Medications Home Medications: Home Medications Medication Instructions Recorded Confirmed Last Taken Type methOCARBAMOL [Robaxin TAB] 500 mg PO Q6H PRN #15 tablet 11/16/18 10/21/19 Unknown Rx Emtricita/Rilpivirine/Tenof Df 1 each PO DAILY 10/21/19 10/21/19 10/19/19 17:00 History [Complera Tablet] Sulfamethoxazole/Trimethoprim 1 each PO BID #14 tablet 10/23/19 Unknown Rx [Bactrim DS TAB] oxyCODONE /ACETAMINOPHEN [Percocet 1 tab PO BID PRN #6 tablet 10/23/19 Unknown Rx 5/325] metroNIDAZOLE [Flagyl] 2,000 mg PO ONCE #4 tablet 11/12/19 Unknown Rx Acetaminophen/Codeine [Tylenol 1 tab PO Q6H PRN #12 tab 11/18/19 Unknown Rx /Codeine # 3 tab] Fluconazole (Nf) [Diflucan TAB] 150 mg PO ONCE #2 tablet 12/02/19 Unknown Rx metroNIDAZOLE [Flagyl] 500 mg PO Q12HR #14 tab 12/02/19 Unknown Rx Naproxen [Naprosyn] 500 mg PO BID PRN #20 tablet 03/01/20 Unknown Rx metroNIDAZOLE [Flagyl] 500 mg PO Q12HR 7 Days #14 tab 03/01/20 Unknown Rx Ibuprofen [Motrin 800 MG tab] 800 mg PO Q8HR PRN #20 tablet 04/10/20 Unknown Rx Ondansetron [Zofran ODT TAB] 8 mg PO Q8HR #20 tab.rapdis 04/10/20 Unknown Rx ED Review of Systems ROS: Stated complaint: RT SIDE ABD PAIN/NAUSEA Other details as noted in HPI Constitutional: no symptoms reported Respiratory: no symptoms reported Endocrine: no symptoms reported Gastrointestinal: abdominal pain, nausea, vomiting Genitourinary: discharge, abnormal menses. denies: dysuria, hematuria Physical Exam - Physical Exam Vital Signs: Vital Signs 04/09/20 20:02 Temperature 99.3 F Pulse Rate 92 H Respiratory 14 Rate Blood Pressure 142/93 O2 Sat by Pulse 100 Oximetry Physical Exam: GENERAL: The patient is well-developed well-nourished female lying on stretcher not appearing to be in acute distress. [] HEENT: Normocephalic. Atraumatic. Extraocular motions are intact. Patient has moist mucous membranes. NECK: Supple. Trachea midline CHEST/LUNGS: Clear to auscultation. There is no respiratory distress noted. HEART/CARDIOVASCULAR: Regular. There is no tachycardia. There is no gallop rub or murmur. ABDOMEN: Abdomen is soft, with tenderness to palpation in the right upper quadrant, right lower quadrant, suprapubic and left lower quadrant. No rebound or guarding. Patient has normal bowel sounds. There is no abdominal distention. SKIN: There is no rash. There is no edema. There is no diaphoresis. NEURO: The patient is awake, alert, and oriented. The patient is cooperative. The patient has no focal neurologic deficits. The patient has normal speech MUSCULOSKELETAL: There is no CVA tenderness bilateral. There is no evidence of acute injury. ED Course Vital Signs 04/09/20 20:02 Temperature 99.3 F Pulse Rate 92 H Respiratory 14 Rate Blood Pressure 142/93 O2 Sat by Pulse 100 Oximetry ED Medical Decision Making - Lab Data Result diagrams: 04/09/20 20:15 04/09/20 20:15 Laboratory Tests 04/09/20 04/09/20 04/09/20 20:15 20:15 20:15 WBC 6.5 RBC 4.51 Hgb 13.7 Hct 41.4 MCV 92 MCH 30 MCHC 33 RDW 14.4 Plt Count 240 Lymph % (Auto) 48.6 H Frontier % (Auto) 8.6 H Eos % (Auto) 2.1 Baso % (Auto) 0.5 Lymph # 3.2 Frontier # 0.6 Eos # 0.1 Baso # 0.0 Seg Neutrophils % 40.2 Seg Neutrophils # 2.6 Sodium 133 L Potassium 3.9 Chloride 102.2 Carbon Dioxide 21 L Anion Gap 14 BUN 13 Creatinine 0.8 Estimated GFR > 60 BUN/Creatinine Ratio 16 Glucose 104 H Calcium 9.0 Total Bilirubin 0.50 AST 35 ALT 46 Alkaline Phosphatase 64 Total Protein 10.1 H Albumin 3.3 L Albumin/Globulin Ratio 0.5 HCG, Qual Negative Urine Color Urine Turbidity Urine pH Ur Specific [place] Urine Protein Urine Glucose (UA) Urine Ketones Urine Blood Urine Nitrite Urine Bilirubin Urine Urobilinogen Ur Leukocyte Esterase Urine WBC (Auto) Urine RBC (Auto) U Epithel Cells (Auto) Urine Mucus 04/09/20 20:36 WBC RBC Hgb Hct MCV MCH MCHC RDW Plt Count Lymph % (Auto) Frontier % (Auto) Eos % (Auto) Baso % (Auto) Lymph # Frontier # Eos # Baso # Seg Neutrophils % Seg Neutrophils # Sodium Potassium Chloride Carbon Dioxide Anion Gap BUN Creatinine Estimated GFR BUN/Creatinine Ratio Glucose Calcium Total Bilirubin AST ALT Alkaline Phosphatase Total Protein Albumin Albumin/Globulin Ratio HCG, Qual Urine Color Yellow Urine Turbidity Clear Urine pH 5.0 Ur Specific [place] 1.025 Urine Protein <15 mg/dl Urine Glucose (UA) Neg Urine Ketones Neg Urine Blood Neg Urine Nitrite Neg Urine Bilirubin Neg Urine Urobilinogen < 2.0 Ur Leukocyte Esterase Neg Urine WBC (Auto) 1.0 Urine RBC (Auto) 1.0 U Epithel Cells (Auto) 4.0 Urine Mucus Few Wet prep-greater than 20% clue cells, few trichomonas, no yeast - Radiology Data Radiology results: report reviewed (CT abdomen pelvis), image reviewed (CT abdomen pelvis) [facility] [address] [place] [address] Cat Scan Report Signed Patient: JEFF MATTHEW MR#: [id number] : 1985 Acct:[id number] Age/Sex: 34 / F ADM Date: 04/09/20 Loc: ED Attending Dr: Ordering Physician: INOCENTE FRANCIS MD Date of Service: 04/09/20 Procedure(s): CT abdomen pelvis wo con Accession Number(s): [id number] cc: INOCENTE FRANCIS MD CT ABDOMEN AND PELVIS WITHOUT CONTRAST INDICATION / CLINICAL INFORMATION: Right flank pain, nausea vomit. TECHNIQUE: Axial CT images were obtained through the abdomen and pelvis without IV contrast. All CT scans at this location are performed using CT dose reduction for ALARA by means of automated exposure control. COMPARISON: None available. FINDINGS: LOWER CHEST: No significant abnormality. LIVER: No significant abnormality. GALLBLADDER: No significant abnormality. BILE DUCTS: No significant abnormality. PANCREAS: No significant abnormality. SPLEEN: No significant abnormality. ADRENALS: No significant abnormality. RIGHT KIDNEY and URETER: No significant abnormality. LEFT KIDNEY and URETER: No significant abnormality. STOMACH and SMALL BOWEL: No significant abnormality. COLON: No significant abnormality. APPENDIX: No significant abnormality. PERITONEUM: No free fluid. No free air. No fluid collection. LYMPH NODES: No significant adenopathy. AORTA and ARTERIES: No significant abnormality. IVC and VEINS: No significant abnormality. URINARY BLADDER: No significant abnormality. REPRODUCTIVE ORGANS: No significant abnormality. ADDITIONAL FINDINGS: Fat-containing periumbilical hernia.. SKELETAL SYSTEM: No significant abnormality. IMPRESSION: Fat-containing periumbilical hernia. Normal-appearing appendix. No evidence of hydronephrosis or obstructive ureteral calculus. Several pelvic phleboliths are present on the right. Signer N erik: Martin Hannon MD Signed: 04/10/2020 12:02 AM Workstation Name: [id number] Transcribed By: Dictated By: Martin Hannon MD Electronically Authenticated By: Martin Hannon MD Signed Date/Time: 04/10/20 0002 DD/ 0000 TD/TT: - Differential Diagnosis Renal colic, vaginitis, PID, cholelithiasis Critical care attestation.: If time is entered above; I have spent that time in minutes in the direct care of this critically ill patient, excluding procedure time. ED Disposition Clinical Impression: Trichomonas vaginalis (TV) infection, Bacterial vaginosis, Acute abdominal pain Disposition: DC- TO HOME OR SELFCARE Is pt being admited?: No Does the pt Need Aspirin: No Condition: Stable Instructions: Abdominal Pain (ED), Bacterial Vaginosis (ED) Additional Instructions: Return to the emergency department should you develop worsening symptoms, inability to tolerate food or liquids, high fever or any other concerns Prescriptions: Ibuprofen [Motrin 800 MG tab] 800 mg PO Q8HR PRN #20 tablet PRN Reason: Pain, Moderate (4-6) Ondansetron [Zofran ODT TAB] 8 mg PO Q8HR #20 tab.rapdis Referrals: TITI BROWN MD [Staff Physician] - 3-5 Days (Dr. Brown is an [employer] ATTEND[employer]. Please follow-up with her for further evaluation) Forms: STI Treatment and Prevention Time of Disposition: 02:01
--- NOTE | 2020-04-10 00:06 | Cat Scan Report ---
CT ABDOMEN AND PELVIS WITHOUT CONTRAST INDICATION / CLINICAL INFORMATION: Right flank pain, nausea vomit. TECHNIQUE: Axial CT images were obtained through the abdomen and pelvis without IV contrast. All CT scans at [facility] location are performed using CT dose reduction for ALARA by means of automated exposure control. COMPARISON: None available. FINDINGS: LOWER CHEST: No significant abnormality. LIVER: No significant abnormality. GALLBLADDER: No significant abnormality. BILE DUCTS: No significant abnormality. PANCREAS: No significant abnormality. SPLEEN: No significant abnormality. ADRENALS: No significant abnormality. RIGHT KIDNEY and URETER: No significant abnormality. LEFT KIDNEY and URETER: No significant abnormality. STOMACH and SMALL BOWEL: No significant abnormality. COLON: No significant abnormality. APPENDIX: No significant abnormality. PERITONEUM: No free fluid. No free air. No fluid collection. LYMPH NODES: No significant adenopathy. AORTA and ARTERIES: No significant abnormality. IVC and VEINS: No significant abnormality. URINARY BLADDER: No significant abnormality. REPRODUCTIVE ORGANS: No significant abnormality. ADDITIONAL FINDINGS: Fat-containing periumbilical hernia.. SKELETAL SYSTEM: No significant abnormality. IMPRESSION: Fat-containing periumbilical hernia. Normal-appearing appendix. No evidence of hydronephrosis or obst ructive ureteral calculus. Several pelvic phleboliths are present on the right. Signer Name: Martin Hannon MD Signed: 04/10/2020 12:02 AM Workstation Name: [id number]
[2020-04-10] MEDS ORDERED: AZITHROMYCIN 1 GM ORAL PWDR PACKET PO ONE (01:57)
[2020-04-10] MEDS ORDERED: LIDOCAINE-MPF (1%) 10 MG/1 ML VIAL 5 ML INFILTRATI ONE (01:57)
[2020-04-10] MEDS ORDERED: metroNIDAZOLE 500 MG TAB PO ONE (01:57)
== END 2020-04-10 02:40 | disposition home or self-care (01) ==
LOC: ED 19:50
DX: A59.01 Trichomonal vulvovaginitis (principal); J45.909 Unspecified asthma, uncomplicated; Z86.711 Personal history of pulmonary embolism; Z79.01 Long term (current) use of anticoagulants; Z98.51 Tubal ligation status; Z79.899 Other long term (current) drug therapy; Z88.6 Allergy status to analgesic agent; Z91.013 Allergy to seafood
CPT/HCPCS: 36415; 74176; 80053; 81001; 84703; 85025; 87210; 87591; 96372; 99284; J0696; J2405; J3010

== ENCOUNTER 2020-06-21 08:51 | Emergency (ER) | payer SELFPAY ==
[2020-06-21 10:01] LABS: Basophils % (Auto) 0.1 % (0.0-1.8); Eosinophils # (Auto) 0.1 K/mm3 (0.0-0.4); Eosinophils % (Auto) 2.8 % (0.0-4.3); Hematocrit 38.9 % (30.3-42.9); Hemoglobin 12.8 gm/dl (10.1-14.3); Lymphocytes # (Auto) 2.1 K/mm3 (1.2-5.4); Lymphocytes % (Auto) 39.4 % (13.4-35.0); Mean Corpuscular HGB Conc 33 % (30-34); Mean Corpuscular Volume 93 fl (79-97); Monocytes # (Auto) 0.4 K/mm3 (0.0-0.8); Monocytes % (Auto) 8.1 % (0.0-7.3); Platelet Count 258 K/mm3 (140-440); Red Blood Count 4.17 M/mm3 (3.65-5.03); Red Cell Distribution Width 14.6 % (13.2-15.2)
--- NOTE | 2020-06-21 10:16 | XRay Report ---
CHEST 2 VIEWS INDICATION: SOB. COMPARISON: None. FINDINGS: Support devices: None. Heart: Within normal limits. Lungs/Pleura: No acute air space or interstitial disease. No significant pleural effusion. IMPRESSION: No acute findings. Signer Name: Jerry Holland MD Signed: 06/21/2020 10:12 AM Workstation Name: [id number]
[2020-06-21 10:38] LABS: Alanine Aminotransferase 13 units/L (7-56); Albumin 3.3 g/dL (3.9-5); BUN/Creatinine Ratio 18; Blood Urea Nitrogen 14 mg/dL (7-17); Calcium 9.1 mg/dL (8.4-10.2); Hemolysis Index 4
[2020-06-21] MEDS ORDERED: methylPREDNISolone Sod Succinate 125 MG/2 ML INJ IV ONE (12:27)
[2020-06-21] MEDS ORDERED: IPRATROPIUM 0.02% NEBU 2.5 ML IH ONE (12:27)
[2020-06-21] MEDS ORDERED: MAGNESIUM SULFATE 2 GM/50 ML BAG IV ONE (12:27)
[2020-06-21] MEDS ORDERED: ALBUTEROL 2.5 MG/3 ML NEBU IH ONE (12:27)
--- NOTE | 2020-06-21 12:32 | Emergency Department Report ---
HPI - General Chief Complaint: Abdominal Pain Time Seen by Provider: 06/21/20 12:13 - HPI HPI: Room 18 The patient is a 34-year-old female present with a chief complaint of shortness of breath. The patient states for the past 4 days she has had shortness of breath and dyspnea on exertion. Patient states she has had a cough that is been nonproductive since yesterday. Patient denies history of fever or chest pain. Patient states she has moved from using one pillow to 3 pillows last night as it helps with her breathing. Patient also mentions she is 2 weeks late with her cycle and for the past 5 days she has been having light pink bleeding ED Past Medical Hx - Past Medical History Previous Medical History?: Yes Hx Pulmonary Embolism: Yes (2014) Hx Asthma: Yes Hx HIV: Yes (Last CD4 600s Fall 2019) Additional medical history: PE - Surgical History Past Surgical History?: Yes Additional Surgical History: tubal ligation 2011 - Family History Family history: no significant - Social History Smoking Status: Never Smoker Substance Use Type: None (Denies illicit drug use), Alcohol (Occasional) - Medications Home Medications: Home Medications Medication Instructions Recorded Confirmed Last Taken Type methOCARBAMOL [Robaxin TAB] 500 mg PO Q6H PRN #15 tablet 11/16/18 10/21/19 Unknown Rx Emtricita/Rilpivirine/Tenof Df 1 each PO DAILY 10/21/19 10/21/19 10/19/19 17:00 History [Complera Tablet] Sulfamethoxazole/Trimethoprim 1 each PO BID #14 tablet 10/23/19 Unknown Rx [Bactrim DS TAB] oxyCODONE /ACETAMINOPHEN [Percocet 1 tab PO BID PRN #6 tablet 10/23/19 Unknown Rx 5/325] metroNIDAZOLE [Flagyl] 2,000 mg PO ONCE #4 tablet 11/12/19 Unknown Rx Acetaminophen/Codeine [Tylenol 1 tab PO Q6H PRN #12 tab 11/18/19 Unknown Rx /Codeine # 3 tab] Fluconazole (Nf) [Diflucan TAB] 150 mg PO ONCE #2 tablet 12/02/19 Unknown Rx metroNIDAZOLE [Flagyl] 500 mg PO Q12HR #14 tab 12/02/19 Unknown Rx Naproxen [Naprosyn] 500 mg PO BID PRN #20 tablet 03/01/20 Unknown Rx metroNIDAZOLE [Flagyl] 500 mg PO Q12HR 7 Days #14 tab 03/01/20 Unknown Rx Ibuprofen [Motrin 800 MG tab] 800 mg PO Q8HR PRN #20 tablet 04/10/20 Unknown Rx Ondansetron [Zofran ODT TAB] 8 mg PO Q8HR #20 tab.rapdis 04/10/20 Unknown Rx traMADoL [Ultram] 50 mg PO Q6HR PRN #12 tablet 04/13/20 Unknown Rx Albuterol Mdi (or & Nicu Only) 2 puff IH QID PRN #8.5 gram 06/21/20 Unknown Rx [ProAir HFA Inhaler] HYDROcodone/APAP 5-325 [[place] 1 - 2 each PO Q6HR PRN #7 tablet 06/21/20 Unknown Rx 5/325] Ibuprofen [Motrin 800 MG tab] 800 mg PO Q8HR PRN #20 tablet 06/21/20 Unknown Rx Prednisone [predniSONE 10 mg 10 mg PO .TAPER #1 tab.ds.pk 06/21/20 Unknown Rx (6-Day Pack, 21 Tabs)] ED Review of Systems ROS: Stated complaint: SOB/ADB PAIN/IRRITATION Other details as noted in HPI Constitutional: denies: fever Respiratory: cough, orthopnea, shortness of breath, SOB with exertion Cardiovascular: denies: chest pain Endocrine: no symptoms reported Gastrointestinal: abdominal pain Genitourinary: abnormal menses Physical Exam - Physical Exam Vital Signs: Vital Signs 06/21/20 09:19 Temperature 98.4 F Pulse Rate 98 H Respiratory 18 Rate Blood Pressure 108/65 [Right] O2 Sat by Pulse 98 Oximetry Physical Exam: GENERAL: The patient is well-developed well-nourished female lying on stretcher not appearing to be in acute distress. [] HEENT: Normocephalic. Atraumatic. Extraocular motions are intact. Patient has moist mucous membranes. NECK: Supple. Trachea midline CHEST/LUNGS: Faint wheezing diffusely. There is no respiratory distress noted. HEART/CARDIOVASCULAR: Regular. There is no tachycardia. There is no gallop rub or murmur. ABDOMEN: Abdomen is soft, nontender. Patient has normal bowel sounds. There is no abdominal distention. SKIN: There is no rash. There is trace bilateral lower extremity pitting edema. There is no diaphoresis. NEURO: The patient is awake, alert, and oriented. The patient is cooperative. The patient has normal speech and gait. MUSCULOSKELETAL: There is no evidence of acute injury. ED Course Vital Signs 06/21/20 09:19 Temperature 98.4 F Pulse Rate 98 H Respiratory 18 Rate Blood Pressure 108/65 [Right] O2 Sat by Pulse 98 Oximetry - Reevaluation(s) Reevaluation #1: 06/21/20 14:37 Patient states her breathing is much improved. Lungs clear to auscultation bila terally ED Medical Decision Making - Lab Data Result diagrams: 06/21/20 09:27 06/21/20 09:27 - EKG Data -: EKG Interpreted by Me EKG shows normal: sinus rhythm Rate: normal - EKG Data When compared to previous EKG there are: previous EKG unavailable Interpretation: nonspecific ST-T wave yenny - Radiology Data Radiology results: report reviewed (Pelvic ultrasound, chest x-ray), image reviewed (Pelvic ultrasound, chest x-ray) interpreted by me: Chest x-ray-no focal infiltrates, no pneumothorax Findings [facility] [address] [place] [address] Ultrasound Report Signed Patient: JEFF MATTHEW MR#: [id number] : 1985 Acct:[id number] Age/Sex: 34 / F ADM Date: 06/21/20 Loc: ED Attending Dr: Ordering Physician: INOCENTE FRANCIS MD Date of Service: 06/21/20 Procedure(s): US transvaginal Accession Number(s): [id number] cc: INOCENTE FRANCIS MD ULTRASOUND PELVIS INDICATION: Pelvic pain, metrorrhagia. TECHNIQUE: Transabdo kedar and Transvaginal. Duplex Color Doppler used: Yes. COMPARISON: CT abdomen and pelvis without contrast from 04/09/2020. FINDINGS: Uterus: Present. Size: 12.1 x 5.9 x 7.8 cm. Endometrial complex: Normal measuring 1.5 cm. Mass lesions: Multiple solid hypoechoic lesions are seen throughout the uterus measuring up to 1.5 cm. Additional findings: None. Right Ovary: Size: 2.9 x 2.1 x 3.3 cm Blood flow: Normal. Cyst or mass: None. Left Ovary: Size: 4.1 x 1.8 x 2.5 cm Blood flow: Normal. Cyst or mass: None. Urinary Bladder: Normal. Free Fluid: None. Additional Findings: None. IMPRESSION: Multiple probable uterine fibroids as above. Signer Name: Theodore Khoury MD Signed: 06/21/2020 3:30 PM Workstation Name: [id number] Transcribed By: OLVIN Dictated By: Theodroe Khoury MD Electronically Authenticated By: Theodore Khoury MD Signed Date/Time: 06/21/20 1530 DD/ 1526 TD/TT: Findings [facility] [address] [place] [address] XRay Report Signed Patient: JEFF MATTHEW MR#: [id number] : 1985 Acct:[id number] Age/Sex: 34 / F ADM Date: 06/21/20 Loc: ED Attending Dr: Ordering Physician: JUN QUINONES MD Date of Service: 06/21/20 Procedure(s): XR chest routine 2V Accession Number(s): [id number] cc: JUN QUINONES MD Fluoro Time In Minutes: CHEST 2 VIEWS INDICATION: SOB. COMPARISON: None. FI NDINGS: Support devices: None. Heart: Within normal limits. Lungs/Pleura: No acute air space or interstitial disease. No significant pleural effusion. IMPRESSION: No acute findings. Signer Name: Jerry Holland MD Signed: 06/21/2020 10:12 AM Workstation Name: [id number] Transcribed By: ES Dictated By: Jerry Holland MD Electronically Authenticated By: Jerry Holland MD Signed Date/Time: 06/21/20 1012 DD/ 1011 TD/TT: - Differential Diagnosis Asthma exacerbation, CHF, pneumonia, bronchitis, ACS Critical care attestation.: If time is entered above; I have spent that time in minutes in the direct care of this critically ill patient, excluding procedure time. ED Disposition Clinical Impression: Asthma exacerbation, Uterine fibroid Disposition: DC-01 TO HOME OR SELFCARE Is pt being admited?: No Does the pt Need Aspirin: No Condition: Stable Instructions: Abdominal Pain (ED), Asthma (ED) Additional Instructions: Return to the emergency department should you develop worsening symptoms, inability to tolerate food or liquids, high fever or any other concerns Prescriptions: Ibuprofen [Motrin 800 MG tab] 800 mg PO Q8HR PRN #20 tablet PRN Reason: Pain, Moderate (4-6) HYDROcodone/APAP 5-325 [[place] 5/325] 1 - 2 each PO Q6HR PRN #7 tablet PRN Reason: Pain Prednisone [predniSONE 10 mg (6-Day Pack, 21 Tabs)] 10 mg PO .TAPER #1 tab.ds.pk Albuterol Mdi (or & Nicu Only) [ProAir HFA Inhaler] 2 puff IH QID PRN #8.5 gram PRN Reason: Shortness Of Breath Referrals: [facility] [Provider Group] - 3-5 Days Time of Disposition: 15:53
[2020-06-21 12:38] LABS: Bilirubin,Urine NEG (Negative); Blood,Urine NEG (Negative); Color,Urine Yellow (Yellow); Mucus,Urine FEW /HPF; Protein,Urine <15 mg/dL mg/dL (Negative); Urobilinogen,Urine < 2.0 mg/dL (<2.0)
[2020-06-21 12:48] LABS: HCG Qualitative,Urine Negative (Negative)
[2020-06-21] MEDS ORDERED: ONDANSETRON 4 MG/2 ML INJ IV ONE (13:12)
[2020-06-21] MEDS ORDERED: MORPHINE 4 MG/1 ML INJ IV ONE (13:12)
--- NOTE | 2020-06-21 15:35 | Ultrasound Report ---
ULTRASOUND PELVIS INDICATION: Pelvic pain, metrorrhagia. TECHNIQUE: Transabdominal and Transvaginal. Duplex Color Doppler used: Yes. COMPARISON: CT abdomen and pelvis without contrast from 04/09/2020. FINDINGS: Uterus: Present. Size: 12.1 x 5.9 x 7.8 cm. Endometrial complex: Normal measuring 1.5 cm. Mass lesions: Multiple solid hypoechoic lesions are seen throughout the uterus measuring up to 1.5 cm . Additional findings: None. Right Ovary: Size: 2.9 x 2.1 x 3.3 cm Blood flow: Normal. Cyst or mass: None. Left Ovary: Size: 4.1 x 1.8 x 2.5 cm Blood flow: Normal. Cyst or mass: None. Urinary Bladder: Normal. Free Fluid: None. Additional Findings: None. IMPRESSION: Multiple probable uterine fibroids as above. Signer Name: Theodore Khoury MD Signed: 06/21/2020 3:30 PM Workstation Name: [id number]
[2020-06-21 16:42] VITALS: BP 125/66
== END 2020-06-21 16:35 | disposition home or self-care (01) ==
LOC: ED 08:51
DX: J45.909 Unspecified asthma, uncomplicated (principal); D25.9 Leiomyoma of uterus, unspecified
CPT/HCPCS: 36415; 71046; 76830; 76856; 80053; 81001; 81025; 83880; 84703; 85025; 93005; 94644; 96365; 96375; 99284; J2270; J2405; J2930; J3475

== ENCOUNTER → 2020-07-18 13:10 | Emergency (ER) | payer SELFPAY ==
[2020-07-20 13:16] LABS: BUN/Creatinine Ratio 15; Blood Urea Nitrogen 12 mg/dL (7-17); Calcium 9.1 mg/dL (8.4-10.2)
[2020-07-20 13:17] LABS: Alanine Aminotransferase 12 units/L (7-56); Albumin 3.4 g/dL (3.9-5)
== END | disposition left against medical advice (07) ==
LOC: ED 13:10
DX: R10.9 Unspecified abdominal pain (principal); Z53.21 Procedure and treatment not carried out due to patient leaving prior to being seen by health care provider
CPT/HCPCS: 36415; 80053

== ENCOUNTER 2020-09-19 12:31 | Emergency (ER) | payer SELFPAY ==
[2020-09-19 14:21] VITALS: BP 154/98
[2020-09-19] MEDS ORDERED: dexAMETHasone 20 MG/5 ML VIAL IV ONE (15:29)
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
--- NOTE | 2020-09-19 15:45 | XRay Report ---
LEFT ANKLE 3 VIEWS INDICATION / CLINICAL INFORMATION: pain after injury, worse atop and lateral ankle. COMPARISON: None available. FINDINGS: No fracture or other significant abnormality. Signer Name: David Riley MD Signed: 09/19/2020 3:40 PM Workstation Name: [id number]
== END 2020-09-19 16:15 | disposition home or self-care (01) ==
LOC: ED 12:31
DX: M25.572 Pain in left ankle and joints of left foot (principal); J45.909 Unspecified asthma, uncomplicated; Z21 Asymptomatic human immunodeficiency virus [HIV] infection status; Z98.51 Tubal ligation status; Z79.899 Other long term (current) drug therapy; Z91.013 Allergy to seafood; Z88.8 Allergy status to other drugs, medicaments and biological substances
CPT/HCPCS: 73610; 96374; 99283; J1100

== ENCOUNTER 2020-10-27 00:03 | Emergency (ER) | payer SELFPAY ==
[2020-10-27 02:40] VITALS: BP 147/95
== END 2020-10-27 03:30 | disposition left against medical advice (07) ==
LOC: ED 00:03
DX: N89.8 Other specified noninflammatory disorders of vagina (principal); Z53.21 Procedure and treatment not carried out due to patient leaving prior to being seen by health care provider

== ENCOUNTER 2020-10-27 23:29 | Emergency (ER) | payer SELFPAY ==
[2020-10-28 00:55] LABS: Basophils % (Auto) 0.3 % (0.0-1.8); Eosinophils # (Auto) 0.1 K/mm3 (0.0-0.4); Eosinophils % (Auto) 1.8 % (0.0-4.3); Hematocrit 40.6 % (30.3-42.9); Hemoglobin 13.5 gm/dl (10.1-14.3); Lymphocytes # (Auto) 2.8 K/mm3 (1.2-5.4); Lymphocytes % (Auto) 42.3 % (13.4-35.0); Mean Corpuscular HGB Conc 33 % (30-34); Mean Corpuscular Volume 94 fl (79-97); Monocytes # (Auto) 0.4 K/mm3 (0.0-0.8); Monocytes % (Auto) 6.6 % (0.0-7.3); Platelet Count 275 K/mm3 (140-440); Red Blood Count 4.32 M/mm3 (3.65-5.03); Red Cell Distribution Width 13.8 % (13.2-15.2)
[2020-10-28 00:57] LABS: Bacteria,Urine 1+ /HPF (Negative); Bilirubin,Urine NEG (Negative); Blood,Urine NEG (Negative); Color,Urine Yellow (Yellow); Mucus,Urine FEW /HPF; Protein,Urine <15 mg/dL mg/dL (Negative); Urobilinogen,Urine < 2.0 mg/dL (<2.0)
[2020-10-28 01:07] LABS: Alanine Aminotransferase 13 units/L (7-56); Albumin 3.7 g/dL (3.9-5); BUN/Creatinine Ratio 18; Blood Urea Nitrogen 14 mg/dL (7-17); Hemolysis Index 21
--- NOTE | 2020-10-28 01:25 | Emergency Department Report ---
ED Abdominal Pain HPI - General Chief Complaint: Abdominal Pain Stated Complaint: STOMACH PAIN/DISCHARGE PUI?: No Time Seen by Provider: 10/28/20 01:22 Source: patient Mode of arrival: Ambulatory Limitations: No Limitations - History of Present Illness Initial Comments: Patient is a 35-year-old female that presents emergency room with complaints of lower abdominal pain x2 days. Patient states she also has nausea. Patient sta liang she does have a vaginal discharge. Patient states that the foul-smelling white discharge. Patient states she is also having dysuria. Patient denies vomiting. Patient denies patient states she is sexually active with one partner and uses condoms. Patient states her pain is worsening. Patient states her pain is a 7 out of 10. Patient states the pain is better with rest and worse with movement and palpation. Patient states she has history of ovarian fibroids. Patient denies recent travel. Patient denies recent international travel. Patient denies exposure to the novel coronavirus. Patient denies sick contacts. Patient denies fever and chills. Patient denies cough. Patient denies diarrhea. Patient denies coming in contact with anybody with symptoms of the novel coronavirus. MD Complaint: abdominal pain -: Sudden Location: LLQ, RLQ, suprapubic Radiation: none Migration to: no migration Severity scale (0 -10): 7 Quality: aching Consistency: constant Improves With: rest Worsens With: movement Associated Symptoms: nausea, dysuria. denies: vomiting, diarrhea, fever, chills, constipation, hematemesis, hematochezia, melena, hematuria, anorexia, syncope - Related Data LMP (females 10-50): unknown Home Medications Medication Instructions Recorded Confirmed Last Taken Emtricita/Rilpivirine/Tenof Df 1 each PO DAILY 10/21/19 10/21/19 10/19/19 17:00 [Complera Tablet] Previous Rx's Medication Instructions Recorded Last Taken Type methOCARBAMOL [Robaxin TAB] 500 mg PO Q6H PRN #15 tablet 11/16/18 Unknown Rx Sulfamethoxazole/Trimethoprim 1 each PO BID #14 tablet 10/23/19 Unknown Rx [Bactrim DS TAB] oxyCODONE /ACETAMINOPHEN [Percocet 1 tab PO BID PRN #6 tablet 10/23/19 Unknown Rx 5/325] metroNIDAZOLE [Flagyl] 2,000 mg PO ONCE #4 tablet 11/12/19 Unknown Rx Acetaminophen/Codeine [Tylenol 1 tab PO Q6H PRN #12 tab 11/18/19 Unknown Rx /Codeine # 3 tab] Fluconazole (Nf) [Diflucan TAB] 150 mg PO ONCE #2 tablet 12/02/19 Unknown Rx metroNIDAZOLE [Flagyl] 500 mg PO Q12HR #14 tab 12/02/19 Unknown Rx Naproxen [Naprosyn] 500 mg PO BID PRN #20 tablet 03/01/20 Unknown Rx metroNIDAZOLE [Flagyl] 500 mg PO Q12HR 7 Days #14 tab 03/01/20 Unknown Rx Ibuprofen [Motrin 800 MG tab] 800 mg PO Q8HR PRN #20 tablet 04/10/20 Unknown Rx Ondansetron [Zofran ODT TAB] 8 mg PO Q8HR #20 tab.rapdis 04/10/20 Unknown Rx traMADoL [Ultram] 50 mg PO Q6HR PRN #12 tablet 04/13/20 Unknown Rx Albuterol Mdi (or & Nicu Only) 2 puff IH QID PRN #8.5 gram 06/21/20 Unknown Rx [ProAir HFA Inhaler] HYDROcodone/APAP 5-325 [[place] 1 - 2 each PO Q6HR PRN #7 tablet 06/21/20 Unknown Rx 5/325] Ibuprofen [Motrin 800 MG tab] 800 mg PO Q8HR PRN #20 tablet 06/21/20 Unknown Rx Prednisone [predniSONE 10 mg 10 mg PO .TAPER #1 tab.ds.pk 06/21/20 Unknown Rx (6-Day Pack, 21 Tabs)] Indomethacin 50 mg PO Q8H PRN 7 Days #21 capsule 09/19/20 Unknown Rx Doxycycline Hyclate 100 mg PO BID 14 Days #28 tablet. 10/28/20 Unknown Rx Allergies Allergy/AdvReac Type Severity Reaction Status Date / Time shrimp Allergy Swelling Verified 10/11/19 13:41 tramadol AdvReac Hives Verified 01/24/18 11:53 ED Review of Systems ROS: Stated complaint: STOMACH PAIN/DISCHARGE Other details as noted in HPI Constitutional: denies: chills, fever Eyes: denies: eye pain, eye discharge, vision change ENT: denies: ear pain, throat pain Respiratory: denies: cough, shortness of breath, wheezing Cardiovascular: denies: chest pain, palpitations Endocrine: no symptoms reported Gastrointestinal: abdominal pain, nausea. denies: vomiting, diarrhea Genitourinary: as per HPI, dysuria, discharge. denies: urgency Musculoskeletal: denies: back pain, joint swelling, arthralgia Skin: denies: rash, lesions Neurological: denies: headache, weakness, paresthesias Psychiatric: denies: anxiety, depression Hematological/Lymphatic: denies: easy bleeding, easy bruising ED Past Medical Hx - Past Medical History Previous Medical History?: Yes Hx Pulmonary Embolism: Yes (2014) Hx Asthma: Yes Hx HIV: Yes Additional medical history: PE, ovarian fibroids - Surgical History Past Surgical History?: Yes Additional Surgical History: tubal ligation 2011 - Family History Family history: no significant - Social History Smoking Status: Never Smoker Substance Use Type: Alcohol - Medications Home Medications: Home Medications Medication Instructions Recorded Confirmed Last Taken Type methOCARBAMOL [Robaxin TAB] 500 mg PO Q6H PRN #15 tablet 11/16/18 10/21/19 Unknown Rx Emtricita/Rilpivirine/Tenof Df 1 each PO DAILY 10/21/19 10/21/19 10/19/19 17:00 History [Complera Tablet] Sulfamethoxazole/Trimethoprim 1 each PO BID #14 tablet 10/23/19 Unknown Rx [Bactrim DS TAB] oxyCODONE /ACETAMINOPHEN [Percocet 1 tab PO BID PRN #6 tablet 10/23/19 Unknown Rx 5/325] metroNIDAZOLE [Flagyl] 2,000 mg PO ONCE #4 tablet 11/12/19 Unknown Rx Acetaminophen/Codeine [Tylenol 1 tab PO Q6H PRN #12 tab 11/18/19 Unknown Rx /Codeine # 3 tab] Fluconazole (Nf) [Diflucan TAB] 150 mg PO ONCE #2 tablet 12/02/19 Unknown Rx metroNIDAZOLE [Flagyl] 500 mg PO Q12HR #14 tab 12/02/19 Unknown Rx Naproxen [Naprosyn] 500 mg PO BID PRN #20 tablet 03/01/20 Unknown Rx metroNIDAZOLE [Flagyl] 500 mg PO Q12HR 7 Days #14 tab 03/01/20 Unknown Rx Ibuprofen [Motrin 800 MG tab] 800 mg PO Q8HR PRN #20 tablet 04/10/20 Unknown Rx Ondansetron [Zofran ODT TAB] 8 mg PO Q8HR #20 tab.rapdis 04/10/20 Unknown Rx traMADoL [Ultram] 50 mg PO Q6HR PRN #12 tablet 04/13/20 Unknown Rx Albuterol Mdi (or & Nicu Only) 2 puff IH QID PRN #8.5 gram 06/21/20 Unknown Rx [ProAir HFA Inhaler] HYDROcodone/APAP 5-325 [[place] 1 - 2 each PO Q6HR PRN #7 tablet 06/21/20 Unknown Rx 5/325] Ibuprofen [Motrin 800 MG tab] 800 mg PO Q8HR PRN #20 tablet 06/21/20 Unknown Rx Prednisone [predniSONE 10 mg 10 mg PO .TAPER #1 tab.ds.pk 06/21/20 Unknown Rx (6-Day Pack, 21 Tabs)] Indomethacin 50 mg PO Q8H PRN 7 Days #21 capsule 09/19/20 Unknown Rx Doxycycline Hyclate 100 mg PO BID 14 Days #28 tablet. 10/28/20 Unknown Rx ED Physical Exam - General Limitations: No Limitations General appearance: alert, in no apparent distress - Head Head exam: Present: atraumatic, normocephalic - Eye Eye exam: Present: normal appearance - ENT ENT exam: Present: mucous membranes moist - Neck Neck exam: Present: normal inspection - Respiratory Respiratory exam: Present: normal lung sounds bilaterally. Absent: respiratory distress - Cardiovascular Cardiovascular Exam: Present: regular rate, normal rhythm. Absent: systolic murmur, diastolic murmur, rubs, gallop - GI/Abdominal GI/Abdominal exam: Present: soft, tenderness (Lower abdominal tenderness to pal pation.), normal bowel sounds - Rectal Rectal exam: Present: deferred - External exam: Present: normal external exam Speculum exam: Present: vaginal discharge, cervical discharge Bi-manual exam: Present: normal bi-manual exam. Absent: cervical motion tendernes, adnexal tenderness, adnexal mass, uterine tenderness - Extremities Exam Extremities exam: Present: normal inspection - Back Exam Back exam: Present: normal inspection - Neurological Exam Neurological exam: Present: alert, oriented X3 - Psychiatric Psychiatric exam: Present: normal affect, normal mood - Skin Skin exam: Present: warm, dry, intact, normal color. Absent: rash ED Course Vital Signs 10/28/20 10/28/20 10/28/20 00:05 03:48 04:01 Temperature 98.3 F Pulse Rate 95 H Respiratory 16 Rate Blood Pressure 140/74 Blood Pressure 154/88 [Right] O2 Sat by Pulse 100 97 95 Oximetry 10/28/20 04:16 Temperature Pulse Rate Respiratory Rate Blood Pressure 128/63 Blood Pressure [Right] O2 Sat by Pulse 95 Oximetry - Reevaluation(s) Reevaluation #1: I discussed all results with patient. I discussed plan of care with patient. Patient agrees to have pelvic exam done. Pelvic exam done with nurse in the [facility]. Nurse was in the room at all times. After exam, the patient complains of nausea and increased pressure. Patient will be given 0.5 mg Dilaudid and Zofran. 10/28/20 03:30 ED Medical Decision Making - Lab Data Result diagrams: 10/28/20 00:09 10/28/20 00:09 - Radiology Data Radiology results: report reviewed CT ABDOMEN AND PELVIS WITH CONTRAST INDICATION / CLINICAL INFORMATION: abd pain. lower abd.. TECHNIQUE: Axial CT images were obtained through the abdomen and pelvis after 100 mL Omnipaque [address] scans at this location are performed using CT dose reduction for [employer] by means of automated exposure control. COMPARISON: CT dated 04/09/20 FINDINGS: LOWER CHEST: No significant abnormality. LIVER: No significant abnormality. GALLBLADDER: Contracted. No acute abnormality. BILE DUCTS: No significant abnormality. PANCREAS: No significant abnormality. SPLEEN: No significant abnormality. ADRENALS: No significant abnormality. RIGHT KIDNEY / URETER: No significant abnormality. LEFT KIDNEY / URETER: No significant abnormality. STOMACH / SMALL BOWEL: Moderate amount of food material in the stomach. No small bowel abnormality. COLON: No significant abnormality. APPENDIX: No significant abnormality. PERITONEUM: No free fluid. No free air. No fluid collection. LYMPH NODES: No significant adenopathy. AORTA / ARTERIES: No significant abnormality. IVC / VEINS: No significant abnormality. URINARY BLADDER: No significant abnormality. REPRODUCTIVE ORGANS: No significant abnormality. ADDITIONAL FINDINGS: Small fat-containing umbilical hernia is unchanged. SKELETAL SYSTEM: No significant abnormality. IMPRESSION: 1. No inflammatory process or bowel obstruction. No significant change. - Medical Decision Making Patient is a 35-year-old female that presents emergency room with complaints of lower abdominal pain, dysuria, vaginal discharge, nausea. Patient had labs done which were essentially unremarkable. Patient's UA did not show UTI. Patient had a CT scan to rule out appendicitis. Patient's CT scan was negative for acute findings. Patient had a pelvic exam which showed copious amounts of white discharge from the cervix. Patient did have cervical motion tenderness. Patie nt had a wet prep done which was negative for clue cells, trichomoniasis and yeast. Patient will be treated prophylactically as we wait on the chlamydia and gonorrhea results for chlamydia and gonorrhea with Rocephin and doxy. Patient stable for discharge. Patient discharged home. Patient instructed to avoid sex and follow-up with the [facility] as soon as possible. Since the wet prep was negative for clue cells, yeast and trichomoniasis, the vaginal discharge is most likely cervicitis due to gonorrhea or chlamydia. Patient is already been treated with Rocephin and patient given a prescription for Doxy. Safe sex was discussed with patient. - Differential Diagnosis Vaginal discharge, lower abdominal pain, UTI, appendicitis, Critical care attestation.: If time is entered above; I have spent that time in minutes in the direct care of this critically ill patient, excluding procedure time. ED Disposition Clinical Impression: Vaginal discharge, Dysuria, Nausea, Cervicitis Abdominal pain Qualifiers: Abdominal location: lower abdomen, unspecified Qualified Code(s): R10.30 - Lower abdominal pain, unspecified Disposition: DC-01 TO HOME OR SELFCARE Is pt being admited?: No Does the pt Need Aspirin: No Condition: Stable Instructions: Nausea, Adult, Vaginal Yeast Infection, Adult, Cervicitis, Abdominal Pain, Adult, [id number], Dysuria, Vaginitis, Abdominal Pain (ED), Cervicitis (ED) Additional Instructions: Patient to follow-up with primary care in 2 to 3 days. Patient to follow-up with [facility] in 2 to 3 days. Patient to rest. Patient to increase water. Patient to avoid strenuous exercise or heavy lifting until cleared by [facility]. Patient to avoid sex until cleared by [facility]. Patient to avoid anything per vagina. Patient to take Tylenol or ibuprofen as needed for pain. Patient to take meds as directed. Patient to return to the ER if condition worsens, changes or new symptoms arise. Prescriptions: Doxycycline Hyclate 100 mg PO BID 14 Days #28 tablet. Referrals: PRIMARY CARE, [Primary Care Provider] - 2-3 Days Forms: STI Treatment and Prevention Time of Disposition: 04:20
--- NOTE | 2020-10-28 02:46 | Cat Scan Report ---
CT ABDOMEN AND PELVIS WITH CONTRAST INDICATION / CLINICAL INFORMATION: abd pain. lower abd.. TECHNIQUE: Axial CT images were obtained through the abdomen and pelvis after 100 mL Omnipaque [address] scans at this location are performed using CT dose reduction for [place] by means of automated exposure control. COMPARISON: CT dated 04/09/20 FINDINGS: LOWER CHEST: No significant abnormality. LIVER: No significant abnormality. GALLBLADDER: Contracted. No acute abnormality. BILE DUCTS: No significant abnormality. PANCREAS: No significant abnormality. SPLEEN: No significant abnormality. ADRENALS: No significant abnormality. RIGHT KIDNEY / URETER: No significant abnormality. LEFT KIDNEY / URETER: No significant abnormality. STOMACH / SMALL BOWEL: Moderate amount of food material in the stomach. No small bowel abnormality. COLON: No significant abnormality. APPENDIX: No significant abnormality. PERITONEUM: No free fluid. No free air. No fluid collection. LYMPH NODES: No significant adenopathy. AORTA / ARTERIES: No significant abnormality. IVC / VEINS: No significant abnormality. URINARY BLADDER: No significant abnormality. REPRODUCTIVE ORGANS: No significant abnormality. ADDITIONAL FINDINGS: Small fat-containing umbilical hernia is unchanged. SKELETAL SYSTEM: No significant abnormality. IMPRESSION: 1. No inflammatory process or bowel obstruction. No significant change. Signer Name: Wilbur Hernandez MD Signed: 10/28/2020 2:42 AM Workstation Name: [id number]
[2020-10-28] MEDS ORDERED: HYDROmorphone 1 MG/1 ML INJ IV ONE (03:31)
[2020-10-28] MEDS ORDERED: ONDANSETRON 4 MG/2 ML INJ IV ONE (03:31)
[2020-10-28] MEDS ORDERED: cefTRIAXone/NS 1 GM/50 ML 1 GM/50 ML BAG IV ONE (03:31)
[2020-10-28 04:17] VITALS: BP 128/63
== END 2020-10-28 04:40 | disposition home or self-care (01) ==
LOC: ED 23:29
DX: N89.8 Other specified noninflammatory disorders of vagina (principal); R11.0 Nausea; N72 Inflammatory disease of cervix uteri; R30.0 Dysuria; J45.909 Unspecified asthma, uncomplicated; Z79.899 Other long term (current) drug therapy; Z98.51 Tubal ligation status; Z88.8 Allergy status to other drugs, medicaments and biological substances; Z91.013 Allergy to seafood; Z21 Asymptomatic human immunodeficiency virus [HIV] infection status
CPT/HCPCS: 36415; 74177; 80053; 81001; 84703; 85025; 87210; 87591; 96365; 96375; 99284; J0696; J1170; J2405; Q9967

== ENCOUNTER 2020-11-24 20:19 | Emergency (ER) | payer SELFPAY ==
[2020-11-24 21:18] VITALS: BP 146/86
--- NOTE | 2020-11-24 21:33 | Emergency Department Report ---
ED General Adult HPI - General Chief complaint: Extremity Injury, Upper Stated complaint: RIGHT THUMB INJURY Time Seen by Provider: 11/24/20 21:29 Source: patient Mode of arrival: Ambulatory Limitations: No Limitations - History of Present Illness Initial comments: 35 yo AA F pt with hx of HIV (compliant with antiretovirals) presents with complaints of right thumb pain x 3 days and itchy rash to the neck x 2 days. She denies any specific injury to her thumb, numbness/tingling/weakness in her hand, decreased ROM, redness, fever/chills/sweats, or wounds. She states there was mild swelling that resolved with icing. PT rates her pain as an 8/10 in severity and states it only occurs with movement. Pain not improving with ibuprofen. Pt states benadryl is not helping with the rash and denies rash being painful. She does admit to staying in a hotel for the past 1-2 weeks. - Related Data Home Medications Medication Instructions Recorded Confirmed Last Taken Emtricita/Rilpivirine/Tenof Df 1 each PO DAILY 10/21/19 10/21/19 10/19/19 17:00 [Complera Tablet] Previous Rx's Medication Instructions Recorded Last Taken Type methOCARBAMOL [Robaxin TAB] 500 mg PO Q6H PRN #15 tablet 11/16/18 Unknown Rx Sulfamethoxazole/Trimethoprim 1 each PO BID #14 tablet 10/23/19 Unknown Rx [Bactrim DS TAB] oxyCODONE /ACETAMINOPHEN [Percocet 1 tab PO BID PRN #6 tablet 10/23/19 Unknown Rx 5/325] metroNIDAZOLE [Flagyl] 2,000 mg PO ONCE #4 tablet 11/12/19 Unknown Rx Acetaminophen/Codeine [Tylenol 1 tab PO Q6H PRN #12 tab 11/18/19 Unknown Rx /Codeine # 3 tab] Fluconazole (Nf) [Diflucan TAB] 150 mg PO ONCE #2 tablet 12/02/19 Unknown Rx metroNIDAZOLE [Flagyl] 500 mg PO Q12HR #14 tab 12/02/19 Unknown Rx Naproxen [Naprosyn] 500 mg PO BID PRN #20 tablet 03/01/20 Unknown Rx metroNIDAZOLE [Flagyl] 500 mg PO Q12HR 7 Days #14 tab 03/01/20 Unknown Rx Ibuprofen [Motrin 800 MG tab] 800 mg PO Q8HR PRN #20 tablet 04/10/20 Unknown Rx Ondansetron [Zofran ODT TAB] 8 mg PO Q8HR #20 tab.rapdis 04/10/20 Unknown Rx traMADoL [Ultram] 50 mg PO Q6HR PRN #12 tablet 04/13/20 Unknown Rx Albuterol Mdi (or & Nicu Only) 2 puff IH QID PRN #8.5 gram 06/21/20 Unknown Rx [ProAir HFA Inhaler] HYDROcodone/APAP 5-325 [[place] 1 - 2 each PO Q6HR PRN #7 tablet 06/21/20 Unknown Rx 5/325] Ibuprofen [Motrin 800 MG tab] 800 mg PO Q8HR PRN #20 tablet 06/21/20 Unknown Rx Prednisone [predniSONE 10 mg 10 mg PO .TAPER #1 tab.ds.pk 06/21/20 Unknown Rx (6-Day Pack, 21 Tabs)] Indomethacin 50 mg PO Q8H PRN 7 Days #21 capsule 09/19/20 Unknown Rx Doxycycline Hyclate 100 mg PO BID 14 Days #28 tablet. 10/28/20 Unknown Rx Diclofenac Sodium 50 mg PO TID PRN #21 tablet. 11/24/20 Unknown Rx Loratadine [Claritin] 10 mg PO QDAY PRN #10 tablet 11/24/20 Unknown Rx Triamcinolone Acetonide 15 gm TP TID PRN #1 oint...g. 11/24/20 Unknown Rx Allergies Allergy/AdvReac Type Severity Reaction Status Date / Time shrimp Allergy Swelling Verified 10/11/19 13:41 tramadol AdvReac Hives Verified 01/24/18 11:53 ED Review of Systems ROS: Stated complaint: RIGHT THUMB INJURY Other details as noted in HPI Constitutional: denies: chills, diaphoresis, fever, malaise, weakness Respiratory: denies: cough, shortness of breath Cardiovascular: denies: chest pain Musculoskeletal: as per HPI, arthralgia Skin: rash. denies: lesions, change in color Neurological: denies: numbness, paresthesias ED Past Medical Hx - Past Medical History Previous Medical History?: Yes Hx Pulmonary Embolism: Yes (2014) Hx Asthma: Yes Hx HIV: Yes Additional medical history: PE, ovarian fibroids - Surgical History Past Surgical History?: Yes Additional Surgical History: tubal ligation 2012 - Social History Smoking Status: Never Smoker Substance Use Type: None - Medications Home Medications: Home Medications Medication Instructions Recorded Confirmed Last Taken Type methOCARBAMOL [Robaxin TAB] 500 mg PO Q6H PRN #15 tablet 11/16/18 10/21/19 Unknown Rx Emtricita/Rilpivirine/Tenof Df 1 each PO DAILY 10/21/19 10/21/19 10/19/19 17:00 History [Complera Tablet] Sulfamethoxazole/Trimethoprim 1 each PO BID #14 tablet 10/23/19 Unknown Rx [Bactrim DS TAB] oxyCODONE /ACETAMINOPHEN [Percocet 1 tab PO BID PRN #6 tablet 10/23/19 Unknown Rx 5/325] metroNIDAZOLE [Flagyl] 2,000 mg PO ONCE #4 tablet 11/12/19 Unknown Rx Acetaminophen/Codeine [Tylenol 1 tab PO Q6H PRN #12 tab 11/18/19 Unknown Rx /Codeine # 3 tab] Fluconazole (Nf) [Diflucan TAB] 150 mg PO ONCE #2 tablet 12/02/19 Unknown Rx metroNIDAZOLE [Flagyl] 500 mg PO Q12HR #14 tab 12/02/19 Unknown Rx Naproxen [Naprosyn] 500 mg PO BID PRN #20 tablet 03/01/20 Unknown Rx metroNIDAZOLE [Flagyl] 500 mg PO Q12HR 7 Days #14 tab 03/01/20 Unknown Rx Ibuprofen [Motrin 800 MG tab] 800 mg PO Q8HR PRN #20 tablet 04/10/20 Unknown Rx Ondansetron [Zofran ODT TAB] 8 mg PO Q8HR #20 tab.rapdis 04/10/20 Unknown Rx traMADoL [Ultram] 50 mg PO Q6HR PRN #12 tablet 04/13/20 Unknown Rx Albuterol Mdi (or & Nicu Only) 2 puff IH QID PRN #8.5 gram 06/21/20 Unknown Rx [ProAir HFA Inhaler] HYDROcodone/APAP 5-325 [[place] 1 - 2 each PO Q6HR PRN #7 tablet 06/21/20 Unknown Rx 5/325] Ibuprofen [Motrin 800 MG tab] 800 mg PO Q8HR PRN #20 tablet 06/21/20 Unknown Rx Prednisone [predniSONE 10 mg 10 mg PO .TAPER #1 tab.ds.pk 06/21/20 Unknown Rx (6-Day Pack, 21 Tabs)] Indomethacin 50 mg PO Q8H PRN 7 Days #21 capsule 09/19/20 Unknown Rx Doxycycline Hyclate 100 mg PO BID 14 Days #28 tablet. 10/28/20 Unknown Rx Diclofenac Sodium 50 mg PO TID PRN #21 tablet. 11/24/20 Unknown Rx Loratadine [Claritin] 10 mg PO QDAY PRN #10 tablet 11/24/20 Unknown Rx Triamcinolone Acetonide 15 gm TP TID PRN #1 oint...g. 11/24/20 Unknown Rx ED Physical Exam - General Limitations: No Limitations General appearance: alert, in no apparent distress - Head Head exam: Present: atraumatic, normocephalic - Eye Eye exam: Absent: scleral icterus - Respiratory Respiratory exam: Absent: respiratory distress - Cardiovascular Cardiovascular Exam: Present: regular rate - Expanded Upper Extremity Exam Right Hand Wrist exam: Present: tenderness (dorsal/lateral thumb and 5th MCP joint tenderness without swelling, erythema, or obvious deformity noted. Normal ROM, sensation, and capillary refill is noted ) - Neurological Exam Neurological exam: Present: alert, oriented X3, normal gait. Absent: motor sensory deficit - Psychiatric Psychiatric exam: Present: normal affect, normal mood - Skin Skin exam: Present: warm, dry, intact, normal color, rash (scattered nontender, nonerythemic papules noted to posterior neck with 3 papules noted to anterior neck). Absent: diaphoretic, ecchymosis ED Course Vital Signs 11/24/20 21:13 Temperature 98.1 F Pulse Rate 82 Respiratory 18 Rate Blood Pressure 146/86 O2 Sat by Pulse 99 Oximetry ED Medical Decision Making - Radiology Data Radiology results: report reviewed . XR hand 3+V RT INDICATION / CLINICAL INFORMATION: pain of right thumb and MC x 3 days. COMPARISON: None available. FINDINGS: No acute fracture. Normal alignment. Joint spaces are preserved. No destructive osseous lesion or suspicious periosteal reaction. Impression: 1.No fracture. - Medical Decision Making 35 yo AA F pt with hx of HIV (compliant with antiretovirals) presents with complaints of right thumb pain x 3 days and itchy rash to the neck x 2 days. She denies any specific injury to her thumb, numbness/tingling/weakness in her hand, decreased ROM, redness, fever/chills/sweats, or wounds. She states there was mild swelling that resolved with icing. PT rates her pain as an 8/10 in severity and states it only occurs with movement. Pain not improving with ibupr ofen. Pt states benadryl is not helping with the rash and denies rash being painful. She does admit to staying in a hotel for the past 1-2 weeks. Xray is negative for any acute bony abnormalities. + Finklestein test of the right thumb noted on exam. Will treat for de Quervain's tenosynovitis with thumb spica splint and nsaids. Rash appears to be due to bedbugs. Discussed home treatment for this. Rx for triamcinolone given. Pt to f/u with PCP/ortho. Strict return precautions were discussed in detail with pt who states understanding. Critical care attestation.: If time is entered above; I have spent that time in minutes in the direct care of this critically ill patient, excluding procedure time. ED Disposition Clinical Impression: De Quervain's tenosynovitis, right, Bed bug bite Disposition: DC- TO HOME OR SELFCARE Is pt being admited?: No Condition: Stable Instructions: De Quervain's Tenosynovitis, Bedbugs Prescriptions: Loratadine [Claritin] 10 mg PO QDAY PRN #10 tablet PRN Reason: Itching Diclofenac Sodium 50 mg PO TID PRN #21 tablet.dr ROJAS Reason: pain Triamcinolone Acetonide 15 gm TP TID PRN #1 oint...g. PRN Reason: Itching Referrals: IVÁN GOMEZ MD [Primary Care Provider] - 3-5 Days [facility] [Provider Group] - 3-5 Days
--- NOTE | 2020-11-24 21:55 | XRay Report ---
. XR hand 3+V RT INDICATION / CLINICAL INFORMATION: pain of right thumb and MC x 3 days. COMPARISON: None available. FINDINGS: No acute fracture. Normal alignment. Joint spaces are preserved. No destructive osseous lesion or s uspicious periosteal reaction. Impression: 1.No fracture. Signer Name: Skyler Santillan MD Signed: 11/24/2020 9:51 PM Workstation Name: [id number]
== END 2020-11-25 00:03 | disposition home or self-care (01) ==
LOC: ED 20:19
DX: M65.4 Radial styloid tenosynovitis [de Quervain] (principal); J45.909 Unspecified asthma, uncomplicated; Z91.013 Allergy to seafood; Z79.899 Other long term (current) drug therapy; Z88.8 Allergy status to other drugs, medicaments and biological substances; Z21 Asymptomatic human immunodeficiency virus [HIV] infection status; Z98.51 Tubal ligation status; W57.XXXA Bitten or stung by nonvenomous insect and other nonvenomous arthropods, initial encounter; Y93.89 Activity, other specified; Y92.89 Other specified places as the place of occurrence of the external cause; Y99.8 Other external cause status

== ENCOUNTER 2021-01-27 20:30 | Emergency (ER) | payer SELFPAY ==
[2021-01-27 20:44] VITALS: BP 154/91
[2021-01-27] MEDS ORDERED: ACETAMINOPHEN 325 MG TAB PO ONE (21:19)
--- NOTE | 2021-01-27 21:22 | Emergency Department Report ---
ED ENT HPI - General Chief complaint: Fever Stated complaint: SORE THROAT/BODYACHE/FEVER Source: patient Mode of arrival: Ambulatory Limitations: No Limitations - History of Present Illness Initial comments: 35-year-old -[place] female presents to the emergency room for 2-day history of sore throat. Patient states she is able to drink and and eat and swallow but it feels like there is something down deeper. Patient states this reminds her of a sore throat in the past when she had to be placed on antibiotics. Patient states that she noticed a fever today T-max of 100.3. Patient states her last Covid test was 2 weeks ago and negative. Patient currently does not have a primary care provider. MD complaint: sore throat Onset/Timin -: days(s) Location: throat Severity scale (0 -10): 7 Quality: sharp Consistency: constant Improves with: none Worsens with: swallowing Associated Symptoms: fever, sore throat - Related Data Home Medications Medication Instructions Recorded Confirmed Last Taken Emtricita/Rilpivirine/Tenof Df 1 each PO DAILY 10/21/19 10/21/19 10/19/19 17:00 [Complera Tablet] Previous Rx's Medication Instructions Recorded Last Taken Type methOCARBAMOL [Robaxin TAB] 500 mg PO Q6H PRN #15 tablet 11/16/18 Unknown Rx Sulfamethoxazole/Trimethoprim 1 each PO BID #14 tablet 10/23/19 Unknown Rx [Bactrim DS TAB] oxyCODONE /ACETAMINOPHEN [Percocet 1 tab PO BID PRN #6 tablet 10/23/19 Unknown Rx 5/325] metroNIDAZOLE [Flagyl] 2,000 mg PO ONCE #4 tablet 11/12/19 Unknown Rx Acetaminophen/Codeine [Tylenol 1 tab PO Q6H PRN #12 tab 11/18/19 Unknown Rx /Codeine # 3 tab] Fluconazole (Nf) [Diflucan TAB] 150 mg PO ONCE #2 tablet 12/02/19 Unknown Rx metroNIDAZOLE [Flagyl] 500 mg PO Q12HR #14 tab 12/02/19 Unknown Rx Naproxen [Naprosyn] 500 mg PO BID PRN #20 tablet 03/01/20 Unknown Rx metroNIDAZOLE [Flagyl] 500 mg PO Q12HR 7 Days #14 tab 03/01/20 Unknown Rx Ibuprofen [Motrin 800 MG tab] 800 mg PO Q8HR PRN #20 tablet 04/10/20 Unknown Rx Ondansetron [Zofran ODT TAB] 8 mg PO Q8HR #20 tab.rapdis 04/10/20 Unknown Rx traMADoL [Ultram] 50 mg PO Q6HR PRN #12 tablet 04/13/20 Unknown Rx Albuterol Mdi (or & Nicu Only) 2 puff IH QID PRN #8.5 gram 06/21/20 Unknown Rx [ProAir HFA Inhaler] HYDROcodone/APAP 5-325 [[place] 1 - 2 each PO Q6HR PRN #7 tablet 06/21/20 Unknown Rx 5/325] Prednisone [predniSONE 10 mg 10 mg PO .TAPER #1 tab.ds.pk 06/21/20 Unknown Rx (6-Day Pack, 21 Tabs)] Indomethacin 50 mg PO Q8H PRN 7 Days #21 capsule 09/19/20 Unknown Rx Doxycycline Hyclate 100 mg PO BID 14 Days #28 tablet. 10/28/20 Unknown Rx Diclofenac Sodium 50 mg PO TID PRN #21 tablet. 11/24/20 Unknown Rx Loratadine [Claritin] 10 mg PO QDAY PRN #10 tablet 11/24/20 Unknown Rx Triamcinolone Acetonide 15 gm TP TID PRN #1 oint...g. 11/24/20 Unknown Rx Amoxicillin [Trimox CAP] 500 mg PO Q8H #30 capsule 01/27/21 Unknown Rx Ibuprofen [Motrin 800 MG tab] 800 mg PO Q8HR PRN #20 tablet 01/27/21 Unknown Rx Allergies Allergy/AdvReac Type Severity Reaction Status Date / Time shrimp Allergy Swelling Verified 10/11/19 13:41 tramadol AdvReac Hives Verified 01/24/18 11:53 ED Dental HPI - General Chief complaint: Fever Stated complaint: SORE THROAT/BODYACHE/FEVER Source: patient Mode of arrival: Ambulatory Limitations: No Limitations - Related Data Home Medications Medication Instructions Recorded Confirmed Last Taken Emtricita/Rilpivirine/Tenof Df 1 each PO DAILY 10/21/19 10/21/19 10/19/19 17:00 [Complera Tablet] Previous Rx's Medication Instructions Recorded Last Taken Type methOCARBAMOL [Robaxin TAB] 500 mg PO Q6H PRN #15 tablet 11/16/18 Unknown Rx Sulfamethoxazole/Trimethoprim 1 each PO BID #14 tablet 10/23/19 Unknown Rx [Bactrim DS TAB] oxyCODONE /ACETAMINOPHEN [Percocet 1 tab PO BID PRN #6 tablet 10/23/19 Unknown Rx 5/325] metroNIDAZOLE [Flagyl] 2,000 mg PO ONCE #4 tablet 11/12/19 Unknown Rx Acetaminophen/Codeine [Tylenol 1 tab PO Q6H PRN #12 tab 11/18/19 Unknown Rx /Codeine # 3 tab] Fluconazole (Nf) [Diflucan TAB] 150 mg PO ONCE #2 tablet 12/02/19 Unknown Rx metroNIDAZOLE [Flagyl] 500 mg PO Q12HR #14 tab 12/02/19 Unknown Rx Naproxen [Naprosyn] 500 mg PO BID PRN #20 tablet 03/01/20 Unknown Rx metroNIDAZOLE [Flagyl] 500 mg PO Q12HR 7 Days #14 tab 03/01/20 Unknown Rx Ibuprofen [Motrin 800 MG tab] 800 mg PO Q8HR PRN #20 tablet 04/10/20 Unknown Rx Ondansetron [Zofran ODT TAB] 8 mg PO Q8HR #20 tab.rapdis 04/10/20 Unknown Rx traMADoL [Ultram] 50 mg PO Q6HR PRN #12 tablet 04/13/20 Unknown Rx Albuterol Mdi (or & Nicu Only) 2 puff IH QID PRN #8.5 gram 06/21/20 Unknown Rx [ProAir HFA Inhaler] HYDROcodone/APAP 5-325 [[place] 1 - 2 each PO Q6HR PRN #7 tablet 06/21/20 Unknown Rx 5/325] Prednisone [predniSONE 10 mg 10 mg PO .TAPER #1 tab.ds.pk 06/21/20 Unknown Rx (6-Day Pack, 21 Tabs)] Indomethacin 50 mg PO Q8H PRN 7 Days #21 capsule 09/19/20 Unknown Rx Doxycycline Hyclate 100 mg PO BID 14 Days #28 tablet. 10/28/20 Unknown Rx Diclofenac Sodium 50 mg PO TID PRN #21 tablet. 11/24/20 Unknown Rx Loratadine [Claritin] 10 mg PO QDAY PRN #10 tablet 11/24/20 Unknown Rx Triamcinolone Acetonide 15 gm TP TID PRN #1 oint...g. 11/24/20 Unknown Rx Amoxicillin [Trimox CAP] 500 mg PO Q8H #30 capsule 01/27/21 Unknown Rx Ibuprofen [Motrin 800 MG tab] 800 mg PO Q8HR PRN #20 tablet 01/27/21 Unknown Rx Allergies Allergy/AdvReac Type Severity Reaction Status Date / Time shrimp Allergy Swelling Verified 10/11/19 13:41 tramadol AdvReac Hives Verified 01/24/18 11:53 ED Review of Systems ROS: Stated complaint: SORE THROAT/BODYACHE/FEVER Other details as noted in HPI Comment: All other systems reviewed and negative ED Past Medical Hx - Past Medical History Previous Medical History?: Yes Hx Pulmonary Embolism: Yes (2014) Hx Asthma: Yes Hx HIV: Yes Additional medical history: PE, ovarian cyst, fibroids - Surgical History Past Surgical History?: Yes Additional Surgical History: tubal ligation 2011 - Social History Smoking Status: Never Smoker - Medications Home Medications: Home Medications Medication Instructions Recorded Confirmed Last Taken Type methOCARBAMOL [Robaxin TAB] 500 mg PO Q6H PRN #15 tablet 11/16/18 10/21/19 Unknown Rx Emtricita/Rilpivirine/Tenof Df 1 each PO DAILY 10/21/19 10/21/19 10/19/19 17:00 History [Complera Tablet] Sulfamethoxazole/Trimethoprim 1 each PO BID #14 tablet 10/23/19 Unknown Rx [Bactrim DS TAB] oxyCODONE /ACETAMINOPHEN [Percocet 1 tab PO BID PRN #6 tablet 10/23/19 Unknown Rx 5/325] metroNIDAZOLE [Flagyl] 2,000 mg PO ONCE #4 tablet 11/12/19 Unknown Rx Acetaminophen/Codeine [Tylenol 1 tab PO Q6H PRN #12 tab 11/18/19 Unknown Rx /Codeine # 3 tab] Fluconazole (Nf) [Diflucan TAB] 150 mg PO ONCE #2 tablet 12/02/19 Unknown Rx metroNIDAZOLE [Flagyl] 500 mg PO Q12HR #14 tab 12/02/19 Unknown Rx Naproxen [Naprosyn] 500 mg PO BID PRN #20 tablet 03/01/20 Unknown Rx metroNIDAZOLE [Flagyl] 500 mg PO Q12HR 7 Days #14 tab 03/01/20 Unknown Rx Ibuprofen [Motrin 800 MG tab] 800 mg PO Q8HR PRN #20 tablet 04/10/20 Unknown Rx Ondansetron [Zofran ODT TAB] 8 mg PO Q8HR #20 tab.rapdis 04/10/20 Unknown Rx traMADoL [Ultram] 50 mg PO Q6HR PRN #12 tablet 04/13/20 Unknown Rx Albuterol Mdi (or & Nicu Only) 2 puff IH QID PRN #8.5 gram 06/21/20 Unknown Rx [ProAir HFA Inhaler] HYDROcodone/APAP 5-325 [[place] 1 - 2 each PO Q6HR PRN #7 tablet 06/21/20 Unknown Rx 5/325] Prednisone [predniSONE 10 mg 10 mg PO .TAPER #1 tab.ds.pk 06/21/20 Unknown Rx (6-Day Pack, 21 Tabs)] Indomethacin 50 mg PO Q8H PRN 7 Days #21 capsule 09/19/20 Unknown Rx Doxycycline Hyclate 100 mg PO BID 14 Days #28 tablet. 10/28/20 Unknown Rx Diclofenac Sodium 50 mg PO TID PRN #21 tablet. 11/24/20 Unknown Rx Loratadine [Claritin] 10 mg PO QDAY PRN #10 tablet 11/24/20 Unknown Rx Triamcinolone Acetonide 15 gm TP TID PRN #1 oint...g. 11/24/20 Unknown Rx Amoxicillin [Trimox CAP] 500 mg PO Q8H #30 capsule 01/27/21 Unknown Rx Ibuprofen [Motrin 800 MG tab] 800 mg PO Q8HR PRN #20 tablet 01/27/21 Unknown Rx ED Physical Exam - General Limitations: No Limitations General appearance: alert, in no apparent distress - Head Head exam: Present: atraumatic, normocephalic - Eye Eye exam: Present: normal appearance - ENT ENT exam: Present: mucous membranes moist - Expanded ENT Exam Expanded Throat exam: Positive: tonsillar erythema. Negative: tonsillar exudate - Neck Neck exam: Present: normal inspection, full ROM, lymphadenopathy - Respiratory Respiratory exam: Absent: respiratory distress, accessory muscle use - Cardiovascular Cardiovascular Exam: Present: tachycardia - Extremities Exam Extremities exam: Present: normal inspection, full ROM - Back Exam Back exam: Present: normal inspection - Neurological Exam Neurological exam: Present: alert, oriented X3, normal gait - Psychiatric Psychiatric exam: Present: normal affect, normal mood - Skin Skin exam: Present: warm, dry, intact, normal color. Absent: rash ED Course Vital Signs 01/27/21 01/27/21 20:37 22:43 Temperature 100.3 F H Pulse Rate 104 H Respiratory 18 20 Rate Blood Pressure 154/91 O2 Sat by Pulse 99 Oximetry ED Medical Decision Making - Medical Decision Making 35-year-old -[place] female presents to the emergency room for 2-day history of sore throat. Patient states she is able to drink and and eat and swallow but it feels like there is something down deeper. Patient states this reminds her of a sore throat in the past when she had to be placed on antibiotics. Patient states that she noticed a fever today T-max of 100.3. Patient states her last Covid test was 2 weeks ago and negative. Patient currently does not have a primary care provider. Patient to be placed on amoxicillin 500 mg every 8 hours for 10 days. Patient is to follow-up with a primary care provider. Tylenol or ibuprofen as needed for pain management. Critical care attestation.: If time is entered above; I have spent that time in minutes in the direct care of this critically ill patient, excluding procedure time. ED Disposition Clinical Impression: Pharyngitis Qualifiers: Pharyngitis/tonsillitis etiology: other specified organisms Qualified Code(s): J02.8 - Acute pharyngitis due to other specified organisms Disposition: DC-01 TO HOME OR SELFCARE Is pt being admited?: No Does the pt Need Aspirin: No Condition: Stable Instructions: Sore Throat, [id number] Additional Instructions: Complete antibiotics. Increase your fluid intake. Tylenol or ibuprofen as needed for pain management. Follow-up with your primary care provider. Prescriptions: Ibuprofen [Motrin 800 MG tab] 800 mg PO Q8HR PRN #20 tablet PRN Reason: Pain, Moderate (4-6) Amoxicillin [Trimox CAP] 500 mg PO Q8H #30 capsule Referrals: [facility] [Provider Group] - 3-5 Days Forms: Work/School Release Form(ED)
== END 2021-01-27 21:30 | disposition home or self-care (01) ==
LOC: ED 20:30
DX: J02.9 Acute pharyngitis, unspecified (principal); J45.909 Unspecified asthma, uncomplicated; Z79.899 Other long term (current) drug therapy; Z88.8 Allergy status to other drugs, medicaments and biological substances; Z91.013 Allergy to seafood; Z21 Asymptomatic human immunodeficiency virus [HIV] infection status; Z98.51 Tubal ligation status
CPT/HCPCS: 99282

== ENCOUNTER 2021-03-06 19:37 | Emergency (ER) | payer SELFPAY ==
[2021-03-06 21:18] VITALS: BP 130/86
--- NOTE | 2021-03-06 22:17 | XRay Report ---
CHEST 2 VIEWS INDICATION / CLINICAL INFORMATION: cough. COMPARISON: 06/21/2020. FINDINGS: SUPPORT DEVICES: None. HEART / MEDIASTINUM: No significant abnormality. LUNGS / PLEURA: No significant pulmonary or pleural abnormality. No pneumothorax. ADDITIONAL FINDINGS: No significant additional findings. IMPRESSION: 1. No acute cardiopulmonary abnormality. Signer Name: Felix Anderson MD Signed: 03/06/2021 10:13 PM Workstation Name: [id number]
[2021-03-07] MEDS ORDERED: ALBUTEROL 2.5 MG/3 ML NEBU IH ONE (00:43)
[2021-03-07] MEDS ORDERED: predniSONE 20 MG TAB PO ONE (00:43)
--- NOTE | 2021-03-07 01:59 | Emergency Department Report ---
ED General Adult HPI - General Chief complaint: Upper Respiratory Infection Stated complaint: CHEST TIGHTNESS/SORE THROAT Time Seen by Provider: 03/07/21 00:42 Source: patient Mode of arrival: Ambulatory Limitations: No Limitations - History of Present Illness Initial comments: Patient is a 35-year-old -[place] female history of asthma who presents for cough and chest tightness x3 days. Patient states out of albuterol inhaler. There is been no fever or chills there is been one episode of nausea and vomiting. Patient denies PND no decrease in ctivity tolerance. - Related Data Home Medications Medication Instructions Recorded Confirmed Last Taken Emtricita/Rilpivirine/Tenof Df 1 each PO DAILY 10/21/19 10/21/19 10/19/19 17:00 [Complera Tablet] Previous Rx's Medication Instructions Recorded Last Taken Type methOCARBAMOL [Robaxin TAB] 500 mg PO Q6H PRN #15 tablet 11/16/18 Unknown Rx Sulfamethoxazole/Trimethoprim 1 each PO BID #14 tablet 10/23/19 Unknown Rx [Bactrim DS TAB] oxyCODONE /ACETAMINOPHEN [Percocet 1 tab PO BID PRN #6 tablet 10/23/19 Unknown Rx 5/325 mg] metroNIDAZOLE [Flagyl TAB] 2,000 mg PO ONCE #4 tablet 11/12/19 Unknown Rx Acetaminophen/Codeine [Tylenol 1 tab PO Q6H PRN #12 tab 11/18/19 Unknown Rx /Codeine # 3 tab] Fluconazole (Nf) [Diflucan TAB] 150 mg PO ONCE #2 tablet 12/02/19 Unknown Rx metroNIDAZOLE [Flagyl TAB] 500 mg PO Q12HR #14 tab 12/02/19 Unknown Rx Naproxen [Naprosyn] 500 mg PO BID PRN #20 tablet 03/01/20 Unknown Rx metroNIDAZOLE [Flagyl TAB] 500 mg PO Q12HR 7 Days #14 tab 03/01/20 Unknown Rx Ibuprofen [Motrin 800 MG tab] 800 mg PO Q8HR PRN #20 tablet 04/10/20 Unknown Rx Ondansetron [Zofran ODT TAB] 8 mg PO Q8HR #20 tab.rapdis 04/10/20 Unknown Rx traMADoL [Ultram 50 MG tab] 50 mg PO Q6HR PRN #12 tablet 04/13/20 Unknown Rx Albuterol Mdi (or & Nicu Only) 2 puff IH QID PRN #8.5 gram 06/21/20 Unknown Rx [ProAir HFA Inhaler] HYDROcodone/APAP 5-325 [[place] 1 - 2 each PO Q6HR PRN #7 tablet 06/21/20 Unknown Rx 5-325 mg TAB] Prednisone [predniSONE 10 mg 10 mg PO .TAPER #1 tab.ds.pk 06/21/20 Unknown Rx (6-Day Pack, 21 Tabs)] Indomethacin 50 mg PO Q8H PRN 7 Days #21 capsule 09/19/20 Unknown Rx Doxycycline Hyclate 100 mg PO BID 14 Days #28 tablet. 10/28/20 Unknown Rx Diclofenac Sodium 50 mg PO TID PRN #21 tablet. 11/24/20 Unknown Rx Loratadine [Claritin] 10 mg PO QDAY PRN #10 tablet 11/24/20 Unknown Rx Triamcinolone Acetonide 15 gm TP TID PRN #1 oint...g. 11/24/20 Unknown Rx Amoxicillin [Trimox CAP] 500 mg PO Q8H #30 capsule 01/27/21 Unknown Rx Ibuprofen [Motrin 800 MG tab] 800 mg PO Q8HR PRN #20 tablet 01/27/21 Unknown Rx ALBUTEROL NEB's [Proventil 0.083% 2.5 mg IH Q6H PRN #25 vial 03/07/21 Unknown Rx NEBS] predniSONE [Deltasone] 40 mg PO DAILY #20 tablet 03/07/21 Unknown Rx Allergies Allergy/AdvReac Type Severity Reaction Status Date / Time shrimp Allergy Swelling Verified 10/11/19 13:41 tramadol AdvReac Hives Verified 01/24/18 11:53 ED Review of Systems ROS: Stated complaint: CHEST TIGHTNESS/SORE THROAT Other details as noted in HPI Constitutional: denies: chills, fever Eyes: denies: eye pain, eye discharge, vision change ENT: denies: ear pain, throat pain Respiratory: cough, shortness of breath, SOB with exertion, wheezing Cardiovascular: denies: chest pain, palpitations Endocrine: no symptoms reported Gastrointestinal: denies: abdominal pain, nausea, vomiting, diarrhea Genitourinary: denies: urgency, dysuria, frequency, hematuria, discharge, dyspareunia Musculoskeletal: denies: back pain, joint swelling, arthralgia Skin: denies: rash, lesions Neurological: denies: headache, weakness, paresthesias Psychiatric: denies: anxiety, depression Hematological/Lymphatic: denies: easy bleeding, easy bruising ED Past Medical Hx - Past Medical History Previous Medical History?: Yes Hx Pulmonary Embolism: Yes (2014) Hx Asthma: Yes Hx HIV: Yes Additional medical history: PE, ovarian cyst, fibroids - Surgical History Past Surgical History?: Yes Additional Surgical History: tubal ligation 2011 - Social History Smoking Status: Never Smoker Substance Use Type: None - Medications Home Medications: Home Medications Medication Instructions Recorded Confirmed Last Taken Type methOCARBAMOL [Robaxin TAB] 500 mg PO Q6H PRN #15 tablet 11/16/18 10/21/19 Unknown Rx Emtricita/Rilpivirine/Tenof Df 1 each PO DAILY 10/21/19 10/21/19 10/19/19 17:00 History [Complera Tablet] Sulfamethoxazole/Trimethoprim 1 each PO BID #14 tablet 10/23/19 Unknown Rx [Bactrim DS TAB] oxyCODONE /ACETAMINOPHEN [Percocet 1 tab PO BID PRN #6 tablet 10/23/19 Unknown Rx 5/325 mg] metroNIDAZOLE [Flagyl TAB] 2,000 mg PO ONCE #4 tablet 11/12/19 Unknown Rx Acetaminophen/Codeine [Tylenol 1 tab PO Q6H PRN #12 tab 11/18/19 Unknown Rx /Codeine # 3 tab] Fluconazole (Nf) [Diflucan TAB] 150 mg PO ONCE #2 tablet 12/02/19 Unknown Rx metroNIDAZOLE [Flagyl TAB] 500 mg PO Q12HR #14 tab 12/02/19 Unknown Rx Naproxen [Naprosyn] 500 mg PO BID PRN #20 tablet 03/01/20 Unknown Rx metroNIDAZOLE [Flagyl TAB] 500 mg PO Q12HR 7 Days #14 tab 03/01/20 Unknown Rx Ibuprofen [Motrin 800 MG tab] 800 mg PO Q8HR PRN #20 tablet 04/10/20 Unknown Rx Ondansetron [Zofran ODT TAB] 8 mg PO Q8HR #20 tab.rapdis 04/10/20 Unknown Rx traMADoL [Ultram 50 MG tab] 50 mg PO Q6HR PRN #12 tablet 04/13/20 Unknown Rx Albuterol Mdi (or & Nicu Only) 2 puff IH QID PRN #8.5 gram 06/21/20 Unknown Rx [ProAir HFA Inhaler] HYDROcodone/APAP 5-325 [[place] 1 - 2 each PO Q6HR PRN #7 tablet 06/21/20 Unknown Rx 5-325 mg TAB] Prednisone [predniSONE 10 mg 10 mg PO .TAPER #1 tab.ds.pk 06/21/20 Unknown Rx (6-Day Pack, 21 Tabs)] Indomethacin 50 mg PO Q8H PRN 7 Days #21 capsule 09/19/20 Unknown Rx Doxycycline Hyclate 100 mg PO BID 14 Days #28 tablet. 10/28/20 Unknown Rx Diclofenac Sodium 50 mg PO TID PRN #21 tablet. 11/24/20 Unknown Rx Loratadine [Claritin] 10 mg PO QDAY PRN #10 tablet 11/24/20 Unknown Rx Triamcinolone Acetonide 15 gm TP TID PRN #1 oint...g. 11/24/20 Unknown Rx Amoxicillin [Trimox CAP] 500 mg PO Q8H #30 capsule 01/27/21 Unknown Rx Ibuprofen [Motrin 800 MG tab] 800 mg PO Q8HR PRN #20 tablet 01/27/21 Unknown Rx ALBUTEROL NEB's [Proventil 0.083% 2.5 mg IH Q6H PRN #25 vial 03/07/21 Unknown Rx NEBS] predniSONE [Deltasone] 40 mg PO DAILY #20 tablet 03/07/21 Unknown Rx ED Physical Exam - General Limitations: No Limitations General appearance: alert, in no apparent distress - Head Head exam: Present: atraumatic, normocephalic - Eye Eye exam: Present: normal appearance, PERRL, EOMI Pupils: Present: normal accommodation - ENT ENT exam: Present: normal exam, mucous membranes moist, TM's normal bilaterally, normal external ear exam. Absent: normal orophraynx, mucous membranes dry - Neck Neck exam: Present: normal inspection, full ROM. Absent: tenderness - Respiratory Respiratory exam: Present: normal lung sounds bilaterally, wheezes, chest wall tenderness. Absent: respiratory distress, rales, rhonchi, stridor - Cardiovascular Cardiovascular Exam: Absent: normal rhythm - GI/Abdominal GI/Abdominal exam: Present: soft, normal bowel sounds. Absent: distended, tenderness - Rectal Rectal exam: Present: deferred - Extremities Exam Extremities exam: Present: normal inspection, full ROM, normal capillary refill. Absent: tenderness - Back Exam Back exam: Present: normal inspection, full ROM. Absent: CVA tenderness (R), CVA tenderness (L) - Neurological Exam Neurological exam: Present: alert, oriented X3, CN II-XII intact, normal gait, reflexes normal - Psychiatric Psychiatric exam: Present: normal affect, normal mood - Skin Skin exam: Present: warm, dry, intact, normal color. Absent: rash ED Course Vital Signs 03/06/21 21:12 Temperature 99.2 F Pulse Rate 97 H Respiratory 20 Rate Blood Pressure 130/86 O2 Sat by Pulse 98 Oximetry ED Medical Decision Making - Radiology Data Radiology results: report reviewed, image reviewed CHEST 2 VIEWS INDICATION / CLINICAL INFORMATION: cough. COMPARISON: 06/21/2020. FINDINGS: SUPPORT DEVICES: None. HEART / MEDIASTINUM: No significant abnormality. LUNGS / PLEURA: No significant pulmonary or pleural abnormality. No pneumothorax. ADDITIONAL FINDINGS: No significant additional findings. IMPRESSION: 1. No acute cardiopulmonary abnormality. Signer Name: Jesse Anderson MD Signed: 03/06/2021 10:13 PM Workstation Name: [id number] Transcribed By: SS Dictated By: JESSE ANDERSON Electronically Authenticated By: JESSE ANDERSON Signed Date/Time: 03/06/212212 DD/ 12 TD/TT: Print - Medical Decision Making Breathing is improved, patient will be DC'd home in stable condition at this time with prescriptions. Patient will follow up with primary care doctor in 2 to 3 days. Patient verbalized agreement understanding discharge plan. Patient DC'd home in stable condition at this time. Critical care attestation.: If time is entered above; I have spent that time in minutes in the direct care of this critically ill patient, excluding procedure time. ED Disposition Clinical Impression: Asthma Qualifiers: Asthma severity: moderate Asthma persistence: persistent Asthma complication type: unspecified Qualified Code(s): J45.40 - Moderate persistent asthma, uncomplicated Disposition: DC-01 TO HOME OR SELFCARE Is pt being admited?: No Does the pt Need Aspirin: No Condition: Stable Instructions: Asthma (ED), Asthma, Adult Additional Instructions: Take medications as prescribed, follow-up with primary care doctor in 2 to 3 days. am Prescriptions: predniSONE [Deltasone] 40 mg PO DAILY #20 tablet ALBUTEROL NEB's [Proventil 0.083% NEBS] 2.5 mg IH Q6H PRN #25 vial PRN Reason: sob wheezing Referrals: AMANDEEP YOU MD [Staff Physician] - 3-5 Days Forms: Work/School Release Form(ED) Time of Disposition: 02:31
== END 2021-03-07 01:32 | disposition home or self-care (01) ==
LOC: ED 19:37
DX: J45.909 Unspecified asthma, uncomplicated (principal); Z98.51 Tubal ligation status; Z98.890 Other specified postprocedural states; Z79.899 Other long term (current) drug therapy; Z88.6 Allergy status to analgesic agent; Z91.013 Allergy to seafood
CPT/HCPCS: 71046; 94640; 99283; J7512

== ENCOUNTER 2021-03-10 22:53 | Emergency (ER) | payer SELFPAY ==
--- NOTE | 2021-03-11 01:23 | Emergency Department Report ---
ED Fall HPI - General Chief Complaint: Extremity Injury, Lower Stated Complaint: FALL/LT SIDE PAIN Source: patient Mode of arrival: Ambulatory - History of Present Illness Initial Comments: Patient is a 35-year-old -[place] female with a history of morbid obesity, HIV, asthma and PE who presents to the ED with complaint of acute onset persistent left elbow and left wrist pain, left hip and low back pain after she slipped and fell down on a wet floor at a club 2 days ago and landed on the floor. Patient states that the floor had some broken pieces of glass but she cleaned herself well and does not suspect that there may be any still remaining in her left leg or left elbow. Patient states that the pain in the last 2 days have worsened especially in the left elbow and left wrist. Patient denies loss of consciousness, head or neck injuries, nausea, vomiting, syncope, chest pain, shortness of breath, numbness and tingling or weakness of upper and lower extremities bilaterally, change in vision or abdominal pain. 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 denies: headache, neck pain, numbness, weakness, chest paint, shortness of breath, abdominal pain, hematuria, unable to walk, lightheaded, vertigo, confusion - Related Data Home Medications Medication Instructions Recorded Confirmed Last Taken Emtricita/Rilpivirine/Tenof Df 1 each PO DAILY 10/21/19 10/21/19 10/19/19 17:00 [Complera Tablet] Previous Rx's Medication Instructions Recorded Last Taken Type methOCARBAMOL [Robaxin TAB] 500 mg PO Q6H PRN #15 tablet 11/16/18 Unknown Rx Sulfamethoxazole/Trimethoprim 1 each PO BID #14 tablet 10/23/19 Unknown Rx [Bactrim DS TAB] oxyCODONE /ACETAMINOPHEN [Percocet 1 tab PO BID PRN #6 tablet 10/23/19 Unknown Rx 5/325 mg] metroNIDAZOLE [Flagyl TAB] 2,000 mg PO ONCE #4 tablet 11/12/19 Unknown Rx Acetaminophen/Codeine [Tylenol 1 tab PO Q6H PRN #12 tab 11/18/19 Unknown Rx /Codeine # 3 tab] Fluconazole (Nf) [Diflucan TAB] 150 mg PO ONCE #2 tablet 12/02/19 Unknown Rx metroNIDAZOLE [Flagyl TAB] 500 mg PO Q12HR #14 tab 12/02/19 Unknown Rx Naproxen [Naprosyn] 500 mg PO BID PRN #20 tablet 03/01/20 Unknown Rx metroNIDAZOLE [Flagyl TAB] 500 mg PO Q12HR 7 Days #14 tab 03/01/20 Unknown Rx Ibuprofen [Motrin 800 MG tab] 800 mg PO Q8HR PRN #20 tablet 04/10/20 Unknown Rx Ondansetron [Zofran ODT TAB] 8 mg PO Q8HR #20 tab.rapdis 04/10/20 Unknown Rx traMADoL [Ultram 50 MG tab] 50 mg PO Q6HR PRN #12 tablet 04/13/20 Unknown Rx Albuterol Mdi (or & Nicu Only) 2 puff IH QID PRN #8.5 gram 06/21/20 Unknown Rx [ProAir HFA Inhaler] HYDROcodone/APAP 5-325 [[place] 1 - 2 each PO Q6HR PRN #7 tablet 06/21/20 Unknown Rx 5-325 mg TAB] Prednisone [predniSONE 10 mg 10 mg PO .TAPER #1 tab.ds.pk 06/21/20 Unknown Rx (6-Day Pack, 21 Tabs)] Indomethacin 50 mg PO Q8H PRN 7 Days #21 capsule 09/19/20 Unknown Rx Doxycycline Hyclate 100 mg PO BID 14 Days #28 tablet.dr 10/28/20 Unknown Rx Loratadine [Claritin] 10 mg PO QDAY PRN #10 tablet 11/24/20 Unknown Rx Triamcinolone Acetonide 15 gm TP TID PRN #1 oint...g. 11/24/20 Unknown Rx Amoxicillin [Trimox CAP] 500 mg PO Q8H #30 capsule 01/27/21 Unknown Rx Ibuprofen [Motrin 800 MG tab] 800 mg PO Q8HR PRN #20 tablet 01/27/21 Unknown Rx ALBUTEROL NEB's [Proventil 0.083% 2.5 mg IH Q6H PRN #25 vial 03/07/21 Unknown Rx NEBS] predniSONE [Deltasone] 40 mg PO DAILY #20 tablet 03/07/21 Unknown Rx Acetaminophen/Codeine [Tylenol 1 tab PO Q6H PRN #12 tab 03/11/21 Unknown Rx /Codeine # 3 tab] Baclofen 20 mg PO Q12H PRN #20 tablet 03/11/21 Unknown Rx Diclofenac Sodium 50 mg PO TID PRN #30 tablet. 03/11/21 Unknown Rx Allergies Allergy/AdvReac Type Severity Reaction Status Date / Time shrimp Allergy Swelling Verified 03/11/21 00:57 tramadol AdvReac Hives Verified 03/11/21 00:57 ED Review of Systems ROS: Stated complaint: FALL/LT SIDE PAIN Other details as noted in HPI Constitutional: denies: chills, fever Eyes: denies: eye pain, eye discharge, vision change ENT: denies: ear pain, throat pain Respiratory: denies: cough, shortness of breath, wheezing Cardiovascular: denies: chest pain, palpitations Endocrine: no symptoms reported Gastrointestinal: denies: abdominal pain, nausea, diarrhea Genitourinary: denies: urgency, dysuria, discharge Musculoskeletal: back pain (Low back pain), arthralgia (Left wrist, left elbow and left thigh and hip pain), myalgia. denies: joint swelling Skin: denies: rash, lesions Neurological: denies: headache, weakness, paresthesias Psychiatric: denies: anxiety, depression Hematological/Lymphatic: denies: easy bleeding, easy bruising ED Past Medical Hx - Past Medical History Hx Pulmonary Embolism: Yes (2014) Hx Asthma: Yes Hx HIV: Yes Additional medical history: PE, ovarian cyst, fibroids - Surgical History Additional Surgical History: tubal ligation 2011 - Social History Smoking Status: Unknown if ever smoked Substance Use Type: None - Medications Home Medications: Home Medications Medication Instructions Recorded Confirmed Last Taken Type methOCARBAMOL [Robaxin TAB] 500 mg PO Q6H PRN #15 tablet 11/16/18 10/21/19 Unknown Rx Emtricita/Rilpivirine/Tenof Df 1 each PO DAILY 10/21/19 10/21/19 10/19/19 17:00 History [Complera Tablet] Sulfamethoxazole/Trimethoprim 1 each PO BID #14 tablet 10/23/19 Unknown Rx [Bactrim DS TAB] oxyCODONE /ACETAMINOPHEN [Percocet 1 tab PO BID PRN #6 tablet 10/23/19 Unknown Rx 5/325 mg] metroNIDAZOLE [Flagyl TAB] 2,000 mg PO ONCE #4 tablet 11/12/19 Unknown Rx Acetaminophen/Codeine [Tylenol 1 tab PO Q6H PRN #12 tab 11/18/19 Unknown Rx /Codeine # 3 tab] Fluconazole (Nf) [Diflucan TAB] 150 mg PO ONCE #2 tablet 12/02/19 Unknown Rx metroNIDAZOLE [Flagyl TAB] 500 mg PO Q12HR #14 tab 12/02/19 Unknown Rx Naproxen [Naprosyn] 500 mg PO BID PRN #20 tablet 03/01/20 Unknown Rx metroNIDAZOLE [Flagyl TAB] 500 mg PO Q12HR 7 Days #14 tab 03/01/20 Unknown Rx Ibuprofen [Motrin 800 MG tab] 800 mg PO Q8HR PRN #20 tablet 04/10/20 Unknown Rx Ondansetron [Zofran ODT TAB] 8 mg PO Q8HR #20 tab.rapdis 04/10/20 Unknown Rx traMADoL [Ultram 50 MG tab] 50 mg PO Q6HR PRN #12 tablet 04/13/20 Unknown Rx Albuterol Mdi (or & Nicu Only) 2 puff IH QID PRN #8.5 gram 06/21/20 Unknown Rx [ProAir HFA Inhaler] HYDROcodone/APAP 5-325 [[place] 1 - 2 each PO Q6HR PRN #7 tablet 06/21/20 Unknown Rx 5-325 mg TAB] Prednisone [predniSONE 10 mg 10 mg PO .TAPER #1 tab.ds.pk 06/21/20 Unknown Rx (6-Day Pack, 21 Tabs)] Indomethacin 50 mg PO Q8H PRN 7 Days #21 capsule 09/19/20 Unknown Rx Doxycycline Hyclate 100 mg PO BID 14 Days #28 tablet.dr 10/28/20 Unknown Rx Loratadine [Claritin] 10 mg PO QDAY PRN #10 tablet 11/24/20 Unknown Rx Triamcinolone Acetonide 15 gm TP TID PRN #1 oint...g. 11/24/20 Unknown Rx Amoxicillin [Trimox CAP] 500 mg PO Q8H #30 capsule 01/27/21 Unknown Rx Ibuprofen [Motrin 800 MG tab] 800 mg PO Q8HR PRN #20 tablet 01/27/21 Unknown Rx ALBUTEROL NEB's [Proventil 0.083% 2.5 mg IH Q6H PRN #25 vial 03/07/21 Unknown Rx NEBS] predniSONE [Deltasone] 40 mg PO DAILY #20 tablet 03/07/21 Unknown Rx Acetaminophen/Codeine [Tylenol 1 tab PO Q6H PRN #12 tab 03/11/21 Unknown Rx /Codeine # 3 tab] Baclofen 20 mg PO Q12H PRN #20 tablet 03/11/21 Unknown Rx Diclofenac Sodium 50 mg PO TID PRN #30 tablet. 03/11/21 Unknown Rx ED Physical Exam - General Limitations: No Limitations General appearance: alert, in no apparent distress - Head Head exam: Present: atraumatic, normocephalic, normal inspection - Eye Eye exam: Present: normal appearance, PERRL, EOMI Pupils: Present: normal accommodation - ENT ENT exam: Present: normal exam, normal orophraynx, mucous membranes moist, TM's normal bilaterally, normal external ear exam - Neck Neck exam: Present: normal inspection, full ROM - Respiratory Respiratory exam: Present: normal lung sounds bilaterally. Absent: respiratory distress, wheezes, rales, rhonchi, chest wall tenderness, accessory muscle use, decreased breath sounds - Cardiovascular Cardiovascular Exam: Present: regular rate, normal rhythm, normal heart sounds. Absent: systolic murmur, diastolic murmur, rubs, gallop - GI/Abdominal GI/Abdominal exam: Present: soft, normal bowel sounds. Absent: tenderness, guarding, rebound, hyperactive bowel sounds, hypoactive bowel sounds - Extremities Exam Extremities exam: Present: normal inspection, tenderness (Palpable left wrist and left elbow as well as left hip tenderness.), normal capillary refill. Absent: full ROM (Limited range of motion of left wrist and left elbow due to pain), pedal edema, joint swelling, calf tenderness - Back Exam Back exam: Present: normal inspection, full ROM, tenderness (Palpable lumbosacral paraspinal musculoskeletal tenderness), muscle spasm, paraspinal tenderness. Absent: CVA tenderness (R), vertebral tenderness - Neurological Exam Neurological exam: Present: alert, oriented X3, CN II-XII intact, normal gait, reflexes normal - Psychiatric Psychiatric exam: Present: normal affect, normal mood - Skin Skin exam: Present: warm, dry, intact, normal color. Absent: rash ED Course Vital Signs 03/11/21 00:07 Temperature 98.9 F Pulse Rate 87 Respiratory 14 Rate Blood Pressure 158/87 O2 Sat by Pulse 98 Oximetry ED Medical Decision Making - Radiology Data Radiology results: report reviewed, image reviewed [facility] [address] [place] [address] XRay Report Signed Patient: JEFF MATTHEW MR#: [id number] : 1985 Acct:[id number] Age/Sex: 35 / F ADM Date: 03/10/21 Loc: ED Attending Dr: Ordering Physician: CYNTHIA LAMB Date of Service: 03/11/21 Procedure(s): XR spine lumbosacral 2-3V Accession Number(s): [id number] cc: CYNTHIA LAMB Fluoro Time In Minutes: Left elbow 3 views INDICATION: All FINDINGS: No joint effusion is seen. Alignment appears normal. No acute fracture. IMPRESSION: No acute fracture. Left wrist 3 views INDICATION: Fall IMPRESSION: Alignment appears normal. No acute fracture or displacement. No focal soft tissue swelling Left femur 4 views INDICATION: Fall FINDINGS: Degenerative changes seen within the left hip. No displaced fracture is seen. Femoral shaft appears intact. No periosteal reaction. IMPRESSION: No acute findings. Lumbar spine 2 views INDICATION: Fall IMPRESSION: Alignment appears normal. No compression fracture is seen. Sacrum and sacroiliac joints appear normal. Minimal curvature of the spine. Signer Name: Yrn Sanchez MD Signed: 03/11/2021 1:46 AM Workstation Name: [id number] Transcribed By: MARIFER Dictated By: SHARI SANCHEZ MD Electronically Authenticated By: SHARI SANCHEZ MD Signed Date/Time: 03/11/21145 DD/ 3 TD/TT: - Medical Decision Making This is a 35-year-old -[place] female with a history of morbid obesity, HIV, asthma and PE who presents to the ED with complaint of acute onset persistent left elbow and left wrist pain, left hip and low back pain after she slipped and fell down on a wet floor at a club 2 days ago and landed on the floor. Patient states that the floor had some broken pieces of glass but she cleaned herself well and does not suspect that there may be any still remaining in her left leg or left elbow. Patient states that the pain in the last 2 days have worsened especially in the left elbow and left wrist. In the ED, patient is alert and oriented x3 and is not in any distress. Patient was treated for pain in the ED and left hip x-ray showed no acute fractures or subluxations. Left femur and left wrist x-rays as well as left elbow x-ray showed no acute fractures or subluxations. The L-spine x-ray also showed no acute fractures and subluxations. On reevaluation, patient's pain is well controlled medications. Patient was discharged home on pain medications and advised to follow-up with her primary care physician in 5 to 7 days for reevaluation or return to the ED immediately if symptoms get worse. - Differential Diagnosis Hip contusion; wrist sprain; elbow sprain; muscle spasm; back injury Critical care attestation.: If time is entered above; I have spent that time in minutes in the direct care of this critically ill patient, excluding procedure time. ED Disposition Clinical Impression: Spasm of muscle of lower back Contusion of left hip and thigh Qualifiers: Encounter type: initial encounter Qualified Code(s): S70.02XA - Contusion of left hip, initial encounter; S70.12XA - Contusion of left thigh, initial encounter Sprain of left wrist Qualifiers: Encounter type: initial encounter Qualified Code(s): S63.502A - Unspecified sprain of left wrist, initial encounter Sprain of left elbow Qualifiers: Encounter type: initial encounter Qualified Code(s): S53.402A - Unspecified sprain of left elbow, initial encounter Disposition: DC-01 TO HOME OR SELFCARE Is pt being admited?: No Does the pt Need Aspirin: No Condition: Stable Instructions: Muscle Cramps and Spasms, [id number], Back Injury Prevention, [id number], Wrist Sprain Rehab-SportsMed, Contusion, [id number] Additional Instructions: All x-rays including L-spine, left wrist, left elbow and left hip showed no acute fractures or subluxations. Therefore your injuries are likely musculoskeletal following the fall. Therefore take medication with food, drink plenty of fluids and follow-up with your primary care physician in 7 to 10 days for reevaluation. Return to the ED immediately if symptoms get worse. Prescriptions: Baclofen 20 mg PO Q12H PRN #20 tablet PRN Reason: Muscle Spasm Diclofenac Sodium 50 mg PO TID PRN #30 tablet. PRN Reason: pain Acetaminophen/Codeine [Tylenol /Codeine # 3 tab] 1 tab PO Q6H PRN #12 tab PRN Reason: Pain , Severe (7-10) Referrals: [facility] [Provider Group] - 3-5 Days Forms: Work/School Release Form(ED) Time of Disposition: 04:18 Print Language: MACEDONIAN
--- NOTE | 2021-03-11 01:50 | XRay Report ---
Left elbow 3 views INDICATION: All FINDINGS: No joint effusion is seen. Alignment appears normal. No acute fracture. IMPRESSION: No acute fracture. Left wrist 3 views INDICATION: Fall IMPRESSION: Alignment appears normal. No acute fracture or displacement. No focal soft tissue swelling Left femur 4 views INDICATION: Fall FINDINGS: Degenerative changes seen within the left hip. No displaced fracture is seen. Femoral shaft appears intact. No periosteal reaction. IMPRESSION: No acute findings. Lumbar spine 2 views INDICATION: Fall IMPRESSION: Alignment appears normal. No compression fracture is seen. Sacrum and sacroiliac joints appear normal . Minimal curvature of the spine. Signer Name: Yrn Sanchez MD Signed: 03/11/2021 1:46 AM Workstation Name: [email or web address]
[2021-03-11 04:42] VITALS: BP 140/78
== END 2021-03-11 04:40 | disposition home or self-care (01) ==
LOC: ED 22:53
DX: S53.402A Unspecified sprain of left elbow, initial encounter (principal); S63.502A Unspecified sprain of left wrist, initial encounter; S70.02XA Contusion of left hip, initial encounter; M62.830 Muscle spasm of back; J45.909 Unspecified asthma, uncomplicated; E66.01 Morbid (severe) obesity due to excess calories; Z79.899 Other long term (current) drug therapy; Z88.8 Allergy status to other drugs, medicaments and biological substances; Z91.013 Allergy to seafood; Z98.51 Tubal ligation status; Z21 Asymptomatic human immunodeficiency virus [HIV] infection status; Z68.42 Body mass index [BMI] 45.0-49.9, adult; W01.0XXA Fall on same level from slipping, tripping and stumbling without subsequent striking against object, initial encounter; Y93.89 Activity, other specified; Y92.89 Other specified places as the place of occurrence of the external cause; Y99.8 Other external cause status
CPT/HCPCS: 72100

== ENCOUNTER 2021-06-28 23:43 | Emergency (ER) | payer SELFPAY ==
[2021-06-29 00:42] VITALS: BP 142/92
--- NOTE | 2021-06-29 01:04 | Emergency Department Report ---
ED General Adult HPI - General Chief complaint: Urogenital-Female Stated complaint: ANAL PAIN Time Seen by Provider: 06/29/21 00:43 Source: patient Mode of arrival: Ambulatory Limitations: No Limitations - History of Present Illness Initial comments: 36-year-old female patient presents to the emergency department with complaints of anal pain starting this week. No preceding fall, trauma, or injury. Symptoms are reminiscent of prior external hemorrhoids. On prior occasions, [id number] creams have been helpful in treating her symptoms. However, she has not experienced any symptomatic relief with [id number] treatments. Denies fever, chills, abdominal pain, pelvic pain, rectal bleeding, purulent drainage, black/bloody stools, fecal incontinence. Denies all other complaints at this time. - Related Data Home Medications Medication Instructions Recorded Confirmed Last Taken Emtricita/Rilpivirine/Tenof Df 1 each PO DAILY 10/21/19 10/21/19 10/19/19 17:00 [Complera Tablet] Previous Rx's Medication Instructions Recorded Last Taken Type methOCARBAMOL [Robaxin TAB] 500 mg PO Q6H PRN #15 tablet 11/16/18 Unknown Rx Sulfamethoxazole/Trimethoprim 1 each PO BID #14 tablet 10/23/19 Unknown Rx [Bactrim DS TAB] oxyCODONE /ACETAMINOPHEN [Percocet 1 tab PO BID PRN #6 tablet 10/23/19 Unknown Rx 5/325 mg] metroNIDAZOLE [Flagyl TAB] 2,000 mg PO ONCE #4 tablet 11/12/19 Unknown Rx Acetaminophen/Codeine [Tylenol 1 tab PO Q6H PRN #12 tab 11/18/19 Unknown Rx /Codeine # 3 tab] Fluconazole (Nf) [Diflucan TAB] 150 mg PO ONCE #2 tablet 12/02/19 Unknown Rx metroNIDAZOLE [Flagyl TAB] 500 mg PO Q12HR #14 tab 12/02/19 Unknown Rx Naproxen [Naprosyn] 500 mg PO BID PRN #20 tablet 03/01/20 Unknown Rx metroNIDAZOLE [Flagyl TAB] 500 mg PO Q12HR 7 Days #14 tab 03/01/20 Unknown Rx Ibuprofen [Motrin 800 MG tab] 800 mg PO Q8HR PRN #20 tablet 04/10/20 Unknown Rx Ondansetron [Zofran ODT TAB] 8 mg PO Q8HR #20 tab.rapdis 04/10/20 Unknown Rx traMADoL [Ultram 50 MG tab] 50 mg PO Q6HR PRN #12 tablet 04/13/20 Unknown Rx Albuterol Mdi (or & Nicu Only) 2 puff IH QID PRN #8.5 gram 06/21/20 Unknown Rx [ProAir HFA Inhaler] HYDROcodone/APAP 5-325 [[place] 1 - 2 each PO Q6HR PRN #7 tablet 06/21/20 Unknown Rx 5-325 mg TAB] Prednisone [predniSONE 10 mg 10 mg PO .TAPER #1 tab.ds.pk 06/21/20 Unknown Rx (6-Day Pack, 21 Tabs)] Indomethacin 50 mg PO Q8H PRN 7 Days #21 capsule 09/19/20 Unknown Rx Doxycycline Hyclate 100 mg PO BID 14 Days #28 tablet. 10/28/20 Unknown Rx Loratadine [Claritin] 10 mg PO QDAY PRN #10 tablet 11/24/20 Unknown Rx Triamcinolone Acetonide 15 gm TP TID PRN #1 oint...g. 11/24/20 Unknown Rx Amoxicillin [Trimox CAP] 500 mg PO Q8H #30 capsule 01/27/21 Unknown Rx Ibuprofen [Motrin 800 MG tab] 800 mg PO Q8HR PRN #20 tablet 01/27/21 Unknown Rx ALBUTEROL NEB's [Proventil 0.083% 2.5 mg IH Q6H PRN #25 vial 03/07/21 Unknown Rx NEBS] predniSONE [Deltasone] 40 mg PO DAILY #20 tablet 03/07/21 Unknown Rx Acetaminophen/Codeine [Tylenol 1 tab PO Q6H PRN #12 tab 03/11/21 Unknown Rx /Codeine # 3 tab] Baclofen 20 mg PO Q12H PRN #20 tablet 03/11/21 Unknown Rx Diclofenac Sodium 50 mg PO TID PRN #30 tablet. 03/11/21 Unknown Rx Docusate Sodium [Colace CAP] 100 mg PO BID PRN 7 Days capsule 06/29/21 Unknown Rx Hydrocortisone [Anusol-Hc 2.5% TOP 30 gm RC BID 7 Days cream..g. 06/29/21 Unknown Rx CREAM] Allergies Allergy/AdvReac Type Severity Reaction Status Date / Time shrimp Allergy Swelling Verified 06/29/21 00:42 tramadol AdvReac Hives Verified 06/29/21 00:42 ED Review of Systems ROS: Stated complaint: ANAL PAIN Other details as noted in HPI Other: GENERAL: Negative for fever. CARDIOVASCULAR: Negative for chest pain. PULMONARY: Negative for shortness of breath. GASTROINTESTINAL: Positive for anal pain. MUSCULOSKELETAL: Negative for back pain. NEUROLOGICAL: Negative for headache. INTEGUMENTARY: Negative for rash. ED Past Medical Hx - Past Medical History Previous Medical History?: Yes Hx Pulmonary Embolism: Yes (2014) Hx Asthma: Yes Hx HIV: Yes Additional medical history: PE, ovarian cyst, fibroids - Surgical History Past Surgical History?: No Additional Surgical History: tubal ligation 2011 - Social History Smoking Status: Never Smoker - Medications Home Medications: Home Medications Medication Instructions Recorded Confirmed Last Taken Type methOCARBAMOL [Robaxin TAB] 500 mg PO Q6H PRN #15 tablet 11/16/18 10/21/19 Unknown Rx Emtricita/Rilpivirine/Tenof Df 1 each PO DAILY 10/21/19 10/21/19 10/19/19 17:00 History [Complera Tablet] Sulfamethoxazole/Trimethoprim 1 each PO BID #14 tablet 10/23/19 Unknown Rx [Bactrim DS TAB] oxyCODONE /ACETAMINOPHEN [Percocet 1 tab PO BID PRN #6 tablet 10/23/19 Unknown Rx 5/325 mg] metroNIDAZOLE [Flagyl TAB] 2,000 mg PO ONCE #4 tablet 11/12/19 Unknown Rx Acetaminophen/Codeine [Tylenol 1 tab PO Q6H PRN #12 tab 11/18/19 Unknown Rx /Codeine # 3 tab] Fluconazole (Nf) [Diflucan TAB] 150 mg PO ONCE #2 tablet 12/02/19 Unknown Rx metroNIDAZOLE [Flagyl TAB] 500 mg PO Q12HR #14 tab 12/02/19 Unknown Rx Naproxen [Naprosyn] 500 mg PO BID PRN #20 tablet 03/01/20 Unknown Rx metroNIDAZOLE [Flagyl TAB] 500 mg PO Q12HR 7 Days #14 tab 03/01/20 Unknown Rx Ibuprofen [Motrin 800 MG tab] 800 mg PO Q8HR PRN #20 tablet 04/10/20 Unknown Rx Ondansetron [Zofran ODT TAB] 8 mg PO Q8HR #20 tab.rapdis 04/10/20 Unknown Rx traMADoL [Ultram 50 MG tab] 50 mg PO Q6HR PRN #12 tablet 04/13/20 Unknown Rx Albuterol Mdi (or & Nicu Only) 2 puff IH QID PRN #8.5 gram 06/21/20 Unknown Rx [ProAir HFA Inhaler] HYDROcodone/APAP 5-325 [[place] 1 - 2 each PO Q6HR PRN #7 tablet 06/21/20 Unknown Rx 5-325 mg TAB] Prednisone [predniSONE 10 mg 10 mg PO .TAPER #1 tab.ds.pk 06/21/20 Unknown Rx (6-Day Pack, 21 Tabs)] Indomethacin 50 mg PO Q8H PRN 7 Days #21 capsule 09/19/20 Unknown Rx Doxycycline Hyclate 100 mg PO BID 14 Days #28 tablet. 10/28/20 Unknown Rx Loratadine [Claritin] 10 mg PO QDAY PRN #10 tablet 11/24/20 Unknown Rx Triamcinolone Acetonide 15 gm TP TID PRN #1 oint...g. 11/24/20 Unknown Rx Amoxicillin [Trimox CAP] 500 mg PO Q8H #30 capsule 01/27/21 Unknown Rx Ibuprofen [Motrin 800 MG tab] 800 mg PO Q8HR PRN #20 tablet 01/27/21 Unknown Rx ALBUTEROL NEB's [Proventil 0.083% 2.5 mg IH Q6H PRN #25 vial 03/07/21 Unknown Rx NEBS] predniSONE [Deltasone] 40 mg PO DAILY #20 tablet 03/07/21 Unknown Rx Acetaminophen/Codeine [Tylenol 1 tab PO Q6H PRN #12 tab 03/11/21 Unknown Rx /Codeine # 3 tab] Baclofen 20 mg PO Q12H PRN #20 tablet 03/11/21 Unknown Rx Diclofenac Sodium 50 mg PO TID PRN #30 tablet. 03/11/21 Unknown Rx Docusate Sodium [Colace CAP] 100 mg PO BID PRN 7 Days capsule 06/29/21 Unknown Rx Hydrocortisone [Anusol-Hc 2.5% TOP 30 gm RC BID 7 Days cream..g. 06/29/21 Unknown Rx CREAM] ED Physical Exam - General Limitations: No Limitations - Other Other exam information: General: Awake, appropriately interactive, no acute distress. Neck: Supple. Full range of motion intact. Cardiovascular: Normal peripheral perfusion. Pulmonary: No respiratory distress. Patient is speaking normally without use of accessory muscles. 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 Non-thrombosed external hemorrhoid noted at 6:00 position. No anal fissures. No pilonidal cyst. No perirectal abscess. Skin: No apparent rashes or lesions. Neurological: No facial asymmetry. Speech is clear. Follows commands. Patient is alert and oriented. Musculoskeletal: Moves all four extremities spontaneously with normal range of motion. Psych: Cooperative. Appropriate mood and affect. ED Course Vital Signs 06/29/21 00:39 Temperature 98.0 F Pulse Rate 86 Respiratory 18 Rate Blood Pressure 142/92 O2 Sat by Pulse 100 Oximetry ED Medical Decision Making - Medical Decision Making Patient presents to the emergency department with signs/symptoms consistent with nonthrombosed external hemorrhoid. She is afebrile, hemodynamically stable, no pre-existing inflammatory bowel disease. No clinical evidence to suggest surgical emergency or infectious process warranting further diagnostic work-up on an emergent basis at this time. Patient we discharged home with appropriate symptomatic treatment and referred to general surgeon for definitive management. Patient expressed understanding and is agreeable to plan of care. Strict return precautions provided. Critical care attestation.: If time is entered above; I have spent that time in minutes in the direct care of this critically ill patient, excluding procedure time. ED Disposition Clinical Impression: External hemorrhoid Disposition: 01 HOME / SELF CARE / HOMELESS Is pt being admited?: No Does the pt Need Aspirin: No Condition: Stable Instructions: Hemorrhoids, [id number] Additional Instructions: Warm sitz baths daily. Use Anusol as directed for 1 week. Take Colace as directed. Increase your dietary fiber intake. Follow-up with Dr. Mendez, general surgeon, if symptoms do not begin improving within 1 week. See referral information below. Return to the emergency department immediately for new or worsening symptoms. Specifically, return to the emergency department immediately for fever, worsening pain, rectal bleeding, black/bloody stools, abdominal pain, purulent drainage, or any other concerns. Prescriptions: Hydrocortisone [Anusol-Hc 2.5% TOP CREAM] 30 gm RC BID 7 Days cream..g. Docusate Sodium [Colace CAP] 100 mg PO BID PRN 7 Days capsule PRN Reason: Constipation Referrals: TED MENDEZ MD [Staff Physician] - 3-5 Days Time of Disposition: 01:08
== END 2021-06-29 01:30 | disposition home or self-care (01) ==
LOC: ED 23:43
DX: K64.4 Residual hemorrhoidal skin tags (principal); J45.909 Unspecified asthma, uncomplicated; Z98.51 Tubal ligation status; Z98.890 Other specified postprocedural states; Z79.899 Other long term (current) drug therapy; Z88.6 Allergy status to analgesic agent; Z91.013 Allergy to seafood
CPT/HCPCS: 99282

== ENCOUNTER 2021-10-20 12:40 | Emergency (ER) | payer SELFPAY ==
[2021-10-20 13:04] VITALS: BP 149/94
[2021-10-20] MEDS ORDERED: ONDANSETRON 4 MG ODT TAB PO ONE (13:25)
[2021-10-20] MEDS ORDERED: LIDOCAINE-MPF (1%) 10 MG/1 ML VIAL 5 ML INFILTRATI ONE (13:25)
[2021-10-20 14:18] LABS: HCG Qualitative,Urine Negative (Negative)
[2021-10-20 14:23] LABS: Bilirubin,Urine NEG (Negative); Blood,Urine NEG (Negative); Color,Urine Yellow (Yellow); Protein,Urine <15 mg/dL mg/dL (Negative)
--- NOTE | 2021-10-20 14:30 | Emergency Department Report ---
ED Female HPI - General Chief complaint: Urogenital-Female Stated complaint: VAGINAL DISCHARGE/NAUSEA Time Seen by Provider: 10/20/21 13:19 Source: patient Mode of arrival: Ambulatory Limitations: No Limitations - History of Present Illness Initial comments: Patient is a 36-year-old female presents emergency room complaints of vaginal discharge that began a week ago. She states that it is a light green color. She has associated dysuria lower abdominal discomfort and nausea. She denies any fever, bleeding, vomiting, diarrhea. Allergy to shrimp and tramadol. She states that she had a tubal ligation. Past medical history of HIV and reports that her CD4 count is in the 700s and states that she is compliant with her antiviral medication. - Related Data Home Medications Medication Instructions Recorded Confirmed Last Taken Emtricita/Rilpivirine/Tenof Df 1 each PO DAILY 10/21/19 10/21/19 10/19/19 17:00 [Complera Tablet] Previous Rx's Medication Instructions Recorded Last Taken Type methOCARBAMOL [Robaxin TAB] 500 mg PO Q6H PRN #15 tablet 11/16/18 Unknown Rx Sulfamethoxazole/Trimethoprim 1 each PO BID #14 tablet 10/23/19 Unknown Rx [Bactrim DS TAB] oxyCODONE /ACETAMINOPHEN [Percocet 1 tab PO BID PRN #6 tablet 10/23/19 Unknown Rx 5/325 mg] metroNIDAZOLE [Flagyl TAB] 2,000 mg PO ONCE #4 tablet 11/12/19 Unknown Rx Acetaminophen/Codeine [Tylenol 1 tab PO Q6H PRN #12 tab 11/18/19 Unknown Rx /Codeine # 3 tab] Fluconazole (Nf) [Diflucan TAB] 150 mg PO ONCE #2 tablet 12/02/19 Unknown Rx metroNIDAZOLE [Flagyl TAB] 500 mg PO Q12HR #14 tab 12/02/19 Unknown Rx Naproxen [Naprosyn] 500 mg PO BID PRN #20 tablet 03/01/20 Unknown Rx metroNIDAZOLE [Flagyl TAB] 500 mg PO Q12HR 7 Days #14 tab 03/01/20 Unknown Rx Ibuprofen [Motrin 800 MG tab] 800 mg PO Q8HR PRN #20 tablet 04/10/20 Unknown Rx Ondansetron [Zofran ODT TAB] 8 mg PO Q8HR #20 tab.rapdis 04/10/20 Unknown Rx traMADoL [Ultram 50 MG tab] 50 mg PO Q6HR PRN #12 tablet 04/13/20 Unknown Rx Albuterol Mdi (or & Nicu Only) 2 puff IH QID PRN #8.5 gram 06/21/20 Unknown Rx [ProAir HFA Inhaler] HYDROcodone/APAP 5-325 [[place] 1 - 2 each PO Q6HR PRN #7 tablet 06/21/20 Unknown Rx 5-325 mg TAB] Prednisone [predniSONE 10 mg 10 mg PO .TAPER #1 tab.ds.pk 06/21/20 Unknown Rx (6-Day Pack, 21 Tabs)] Indomethacin 50 mg PO Q8H PRN 7 Days #21 capsule 09/19/20 Unknown Rx Doxycycline Hyclate 100 mg PO BID 14 Days #28 tablet. 10/28/20 Unknown Rx Loratadine [Claritin] 10 mg PO QDAY PRN #10 tablet 11/24/20 Unknown Rx Triamcinolone Acetonide 15 gm TP TID PRN #1 oint...g. 11/24/20 Unknown Rx Amoxicillin [Trimox CAP] 500 mg PO Q8H #30 capsule 01/27/21 Unknown Rx Ibuprofen [Motrin 800 MG tab] 800 mg PO Q8HR PRN #20 tablet 01/27/21 Unknown Rx ALBUTEROL NEB's [Proventil 0.083% 2.5 mg IH Q6H PRN #25 vial 03/07/21 Unknown Rx NEBS] predniSONE [Deltasone] 40 mg PO DAILY #20 tablet 03/07/21 Unknown Rx Acetaminophen/Codeine [Tylenol 1 tab PO Q6H PRN #12 tab 03/11/21 Unknown Rx /Codeine # 3 tab] Baclofen 20 mg PO Q12H PRN #20 tablet 03/11/21 Unknown Rx Diclofenac Sodium 50 mg PO TID PRN #30 tablet. 03/11/21 Unknown Rx Docusate Sodium [Colace CAP] 100 mg PO BID PRN 7 Days capsule 06/29/21 Unknown Rx Hydrocortisone [Anusol-Hc 2.5% TOP 30 gm RC BID 7 Days cream..g. 06/29/21 Unknown Rx CREAM] Doxycycline Hyclate [Doxycycline 100 mg PO BID 7 Days #14 tab 10/20/21 Unknown Rx Hyclate TAB] Ondansetron [Zofran Odt] 4 mg PO Q8HR PRN #10 tab.rapdis 10/20/21 Unknown Rx metroNIDAZOLE [Flagyl] 500 mg PO BID 7 Days #14 tab 10/20/21 Unknown Rx Allergies Allergy/AdvReac Type Severity Reaction Status Date / Time shrimp Allergy Swelling Verified 06/29/21 00:42 tramadol AdvReac Hives Verified 06/29/21 00:42 ED Review of Systems ROS: Stated complaint: VAGINAL DISCHARGE/NAUSEA Other details as noted in HPI Comment: All other systems reviewed and negative ED Past Medical Hx - Past Medical History Hx Pulmonary Embolism: Yes (2014) Hx Asthma: Yes Hx HIV: Yes Additional medical history: PE, ovarian cyst, fibroids - Surgical History Additional Surgical History: tubal ligation 2011 - Social History Smoking Status: Never Smoker - Medications Home Medications: Home Medications Medication Instructions Recorded Confirmed Last Taken Type methOCARBAMOL [Robaxin TAB] 500 mg PO Q6H PRN #15 tablet 11/16/18 10/21/19 Unknown Rx Emtricita/Rilpivirine/Tenof Df 1 each PO DAILY 10/21/19 10/21/19 10/19/19 17:00 History [Complera Tablet] Sulfamethoxazole/Trimethoprim 1 each PO BID #14 tablet 10/23/19 Unknown Rx [Bactrim DS TAB] oxyCODONE /ACETAMINOPHEN [Percocet 1 tab PO BID PRN #6 tablet 10/23/19 Unknown Rx 5/325 mg] metroNIDAZOLE [Flagyl TAB] 2,000 mg PO ONCE #4 tablet 11/12/19 Unknown Rx Acetaminophen/Codeine [Tylenol 1 tab PO Q6H PRN #12 tab 11/18/19 Unknown Rx /Codeine # 3 tab] Fluconazole (Nf) [Diflucan TAB] 150 mg PO ONCE #2 tablet 12/02/19 Unknown Rx metroNIDAZOLE [Flagyl TAB] 500 mg PO Q12HR #14 tab 12/02/19 Unknown Rx Naproxen [Naprosyn] 500 mg PO BID PRN #20 tablet 03/01/20 Unknown Rx metroNIDAZOLE [Flagyl TAB] 500 mg PO Q12HR 7 Days #14 tab 03/01/20 Unknown Rx Ibuprofen [Motrin 800 MG tab] 800 mg PO Q8HR PRN #20 tablet 04/10/20 Unknown Rx Ondansetron [Zofran ODT TAB] 8 mg PO Q8HR #20 tab.rapdis 04/10/20 Unknown Rx traMADoL [Ultram 50 MG tab] 50 mg PO Q6HR PRN #12 tablet 04/13/20 Unknown Rx Albuterol Mdi (or & Nicu Only) 2 puff IH QID PRN #8.5 gram 06/21/20 Unknown Rx [ProAir HFA Inhaler] HYDROcodone/APAP 5-325 [[place] 1 - 2 each PO Q6HR PRN #7 tablet 06/21/20 Unknown Rx 5-325 mg TAB] Prednisone [predniSONE 10 mg 10 mg PO .TAPER #1 tab.ds.pk 06/21/20 Unknown Rx (6-Day Pack, 21 Tabs)] Indomethacin 50 mg PO Q8H PRN 7 Days #21 capsule 09/19/20 Unknown Rx Doxycycline Hyclate 100 mg PO BID 14 Days #28 tablet. 10/28/20 Unknown Rx Loratadine [Claritin] 10 mg PO QDAY PRN #10 tablet 11/24/20 Unknown Rx Triamcinolone Acetonide 15 gm TP TID PRN #1 oint...g. 11/24/20 Unknown Rx Amoxicillin [Trimox CAP] 500 mg PO Q8H #30 capsule 01/27/21 Unknown Rx Ibuprofen [Motrin 800 MG tab] 800 mg PO Q8HR PRN #20 tablet 01/27/21 Unknown Rx ALBUTEROL NEB's [Proventil 0.083% 2.5 mg IH Q6H PRN #25 vial 03/07/21 Unknown Rx NEBS] predniSONE [Deltasone] 40 mg PO DAILY #20 tablet 03/07/21 Unknown Rx Acetaminophen/Codeine [Tylenol 1 tab PO Q6H PRN #12 tab 03/11/21 Unknown Rx /Codeine # 3 tab] Baclofen 20 mg PO Q12H PRN #20 tablet 03/11/21 Unknown Rx Diclofenac Sodium 50 mg PO TID PRN #30 tablet. 03/11/21 Unknown Rx Docusate Sodium [Colace CAP] 100 mg PO BID PRN 7 Days capsule 06/29/21 Unknown Rx Hydrocortisone [Anusol-Hc 2.5% TOP 30 gm RC BID 7 Days cream..g. 06/29/21 Unknown Rx CREAM] Doxycycline Hyclate [Doxycycline 100 mg PO BID 7 Days #14 tab 10/20/21 Unknown Rx Hyclate TAB] Ondansetron [Zofran Odt] 4 mg PO Q8HR PRN #10 tab.rapdis 10/20/21 Unknown Rx metroNIDAZOLE [Flagyl] 500 mg PO BID 7 Days #14 tab 10/20/21 Unknown Rx ED Physical Exam - General Limitations: No Limitations General appearance: alert, in no apparent distress - Head Head exam: Present: atraumatic, normocephalic - Eye Eye exam: Present: normal appearance - ENT ENT exam: Present: mucous membranes moist - Respiratory Respiratory exam: Present: normal lung sounds bilaterally. Absent: respiratory distress, wheezes, rales, rhonchi, stridor, chest wall tenderness, accessory muscle use, decreased breath sounds, prolonged expiratory - Cardiovascular Cardiovascular Exam: Present: regular rate, normal rhythm, normal heart sounds. Absent: systolic murmur, diastolic murmur, rubs, gallop - GI/Abdominal GI/Abdominal exam: Present: soft, normal bowel sounds. Absent: distended, tenderness, guarding, rebound, rigid - Neurological Exam Neurological exam: Present: alert, oriented X3 - Psychiatric Psychiatric exam: Present: normal affect, normal mood - Skin Skin exam: Present: warm, dry, intact ED Course Vital Signs 10/20/21 12:42 Temperature 98.1 F Pulse Rate 81 Respiratory 18 Rate Blood Pressure 149/94 O2 Sat by Pulse 99 Oximetry ED Medical Decision Making - Lab Data Lab Results 10/20/21 Range/Units 13:50 Urine Color Yellow (Yellow) Urine Turbidity Clear (Clear) Urine pH 7.0 (5.0-7.0) Ur Specific [place] 1.015 (1.003-1.030) Urine Protein <15 mg/dl (Negative) mg/dL Urine Glucose (UA) Neg (Negative) mg/dL Urine Ketones Neg (Negative) mg/dL Urine Blood Neg (Negative) Urine Nitrite Neg (Negative) Ur Reducing Substances Not Reportable Urine Bilirubin Neg (Negative) Urine Ictotest Not Reportable Urine Urobilinogen 2.0 (<2.0) mg/dL Ur Leukocyte Esterase Neg (Negative) Urine WBC (Auto) 1.0 (0.0-6.0) /HPF Urine RBC (Auto) 1.0 (0.0-6.0) /HPF U Epithel Cells (Auto) 1.0 (0-13.0) /HPF Urine HCG, Qual Negative (Negative) - Medical Decision Making Patient is a 36-year-old female presents emergency room complaints of vaginal discharge that began a week ago. She states that it is a light green color. She has associated dysuria lower abdominal discomfort and nausea. She denies any fever, bleeding, vomiting, diarrhea. Allergy to shrimp and tramadol. She states that she had a tubal ligation. Past medical history of HIV and reports that her CD4 count is in the 700s and states that she is compliant with her antiviral medication. vss. no abd ttp on exam. urine preg is negative. UA is WNL. pt has no clinical signs of PID or TOA at this time. pt given IM rocephin and ODT zofran with improvement of symptoms. advised pt Please take medication as prescribed. Please follow-up with the clinic or the health department in order to have a full STD panel. Please have any partner tested and treated as well. Avoid sexual intercourse. Return to emergency room for any new or worsening symptoms. Critical care attestation.: If time is entered above; I have spent that time in minutes in the direct care of this critically ill patient, excluding procedure time. ED Disposition Clinical Impression: Pelvic pain, Vaginal discharge, Dysuria, Nausea Disposition: 01 HOME / SELF CARE / HOMELESS Is pt being admited?: No Does the pt Need Aspirin: No Condition: Stable Instructions: Safe Sex, Vaginitis Additional Instructions: Please take medication as prescribed. Please follow-up with the clinic or the health department in order to have a full STD panel. Please have any partner tested and treated as well. Avoid sexual intercourse. Return to emergency room for any new or worsening symptoms. Prescriptions: Doxycycline Hyclate [Doxycycline Hyclate TAB] 100 mg PO BID 7 Days #14 tab metroNIDAZOLE [Flagyl] 500 mg PO BID 7 Days #14 tab Ondansetron [Zofran Odt] 4 mg PO Q8HR PRN #10 tab.rapdis PRN Reason: nausea/vomiting Referrals: PRIMARY CARE, [Primary Care Provider] - 3-5 Days [facility] [Provider Group] - 3-5 Days [facility] [Outside] - 3-5 Days Forms: Work/School Release Form(ED) Time of Disposition: 14:28 Print Language: LATVIAN
== END 2021-10-20 14:51 | disposition home or self-care (01) ==
LOC: ED 12:40
DX: R10.2 Pelvic and perineal pain (principal); N89.8 Other specified noninflammatory disorders of vagina; A36.9 Diphtheria, unspecified; R11.0 Nausea; Z91.013 Allergy to seafood; Z88.5 Allergy status to narcotic agent
CPT/HCPCS: 81001; 81025; 96372; 99283; J0696; J3490; Q0162